=== PATIENT | female | born 1985 | race Caucasian/White ===

== ENCOUNTER 2023-05-30 19:23 | Outpatient (CLI) | payer BC, SELFPAY ==
[2023-05-30 15:20] LABS: Abs Immature Grans 0.02 10^3/uL (0.0-0.06); Absolute Basophil Count 0.03 10^3/uL (0.0-0.2); Absolute Eosinophil Count 0.19 10^3/uL (0.0-0.7); Absolute Lymphocyte Count 2.16 10^3/uL (1.2-3.4); Absolute Monocyte Count 0.44 10^3/uL (0.1-0.8); Absolute Neutrophil Count 3.67 10^3/uL (1.2-6.7); Basophils % 0.5; Eosinophils % 2.9; HGB 13.8 g/dL (11.2-15.7); Immature Grans % 0.3; Lymphocytes % 33.2; MCH 29.1 pg (27.0-33.0); MCHC 33.7 % (32.0-36.0); MCV 87 fL (80-95); MPV 9.8 fL (8.0-11.0); Monocytes % 6.8; Neutrophils % 56.3; Platelet Count 245 10^3/uL (130-400); RBC 4.74 10^6/uL (3.93-5.22); RDW 11.7 % (11.7-14.6); RDW-SD 36.7 fL; WBC 6.51 10^3/uL (4.4-10.8)
[2023-05-30 15:37] LABS: ALT 19 U/L (14-59); AST 15 U/L (15-37); Albumin 3.9 g/dL (3.4-5.0); Alkaline Phosphatase 36 U/L (46-116); Amylase 61 U/L (25-115); Anion Gap 7.6 mmol/L (3-11); BUN 11 mg/dL (7-18); Bilirubin, Total 0.5 mg/dL (0.2-1.0); CO2 28.4 mmol/L (21.0-32.0); CREATININE 0.8 mg/dL (0.55-1.02); Calcium 9.2 mg/dL (8.5-10.1); Chloride 104 mmol/L (98-107); Estimated GFR 96.66 (mL/min/1.73m2); Glucose 103 mg/dL (74-106); Lipase 30 U/L (16-77); Sodium 140 mmol/L (136-145); Total Protein 7.4 g/dL (6.4-8.2)
== END 2023-05-30 19:24 | disposition home or self-care (01) ==
LOC: LBO 19:24
PROVIDERS: Visit Provider Nurse Practitioner Family
DX: R10.9 Unspecified abdominal pain (principal)
CPT/HCPCS: 36415; 80053; 83690; 82150; 85025

== ENCOUNTER → 2023-06-24 01:19 | Outpatient (CLI) | payer BC, SELFPAY ==
[2023-06-24] MEDS: Barium Sulfate 60% W/V 355 ML BTL PO (10:37)
[2023-06-24] MEDS: Barium Sulfate 98% W/W 140 ML BTL PO (10:38)
--- NOTE | 2023-06-24 10:40 | DI.RAD_ITS ---
Exam(s) RF UPPER GI SERIES SINGLE EXAM: RF UPPER GI SERIES SINGLE CLINICAL HISTORY: upper abd pain,r10.10 TECHNIQUE: 2D and realtime digital imaging was performed. CONTRAST MATERIAL: Oral barium contrast was administered. COMPARISON: No exams were available for comparison FINDINGS: Initial plain film of the abdomen reveals normal stool and air pattern. No abnormal calcifications ar e seen. Esophagus: The esophagus is patent with no evidence for erosions, fold thickening, strictures, or ma sses. With regards to the motility, there is a normal primary stripping wave. No tertiary contraction s were noted. There is penetration upon swallowing but no aspiration. There is no hiatal hernia or g astroesophageal reflux. Stomach: The stomach shows no gastric fold thickening, erosions, or masses. Duodenal Bulb: Shows no gastric fold thickening, erosions, or masses. IMPRESSION: Normal upper GI series. RADIATION DOSE DELIVERED: ramy Morales=69.7 mGy
[2023-06-24] MEDS: Simethicone/Sod Bicarb/Cit Ac, 4 gram PACKET 1 PACKET PO (10:41)
== END ==
PROVIDERS: PCP Nurse Practitioner Family; Visit Provider Nurse Practitioner Family
DX: R10.10 Upper abdominal pain, unspecified (principal)
CPT/HCPCS: 74240; J3490

== ENCOUNTER 2023-12-20 02:03 | Outpatient (CLI) | payer BC, SELFPAY ==
--- OUTSIDE RECORDS SUMMARY | 2023-12-20 02:04 | XMS_ITS | Encounter Summary ---
Author Organization [place] [address] Care Team Providers Care Iuss Master Analyst Name Role Phone Chiara Troy MD Primary Care Provider Encounter Details Date Type Department Care Team (Late st Contact Info) Description 05/23/2022 Interpretation Only [address] [phone] Parth Marie MD [address] [place] [address] Social History Tobacco Use Types Packs/Day Years Used Date Smoking Tobacco: Never Smokeless Tobacco: Never Alcohol Use Standard Drinks/Week Comments Not Asked 0 (1 standard drink = 0.6 oz pur e alcohol) Sex and Gender Information Value Date Recorded Sex Assigned at Not on file Gender Identity Not on file Sexual Orientation Not on file documented as of this encounter Plan of Treatment Not on file documented as of this encounter Procedures Procedure Name Priority Date/Time Associated Diagnosis Comments CT ABDOMEN AND PELVIS WO CONTRAST STAT 05/23/2022 9:02 PM EST documented in this encounter Results * CT Abdomen & Pelvis wo Contrast (05/23/2022 9:02 PM EST) PT CLASS E RAD ADMITDTTM RAD PT RAD INFO [id number]^F INDLEY^ANN AGUSTIN WALT RAD EXAM DESC CTAPWO^CT ABD AND PELVIS WITHOUT CONT^RIS RAD Anatomical Region Laterality Modality Abdomen, Pelvis Computed Tomogra phy Impressions 05/23/2022 9:39 PM EST No hydronephrosis or urolithiasis. Subtle fat stranding at the mesenteric root, nonspecific. This can be seen as an early sign of pancreatitis. Thank you for letting us participate in the care of this patient. ??If you are a health care provider and have any questions regarding this report, please contact the number below. ??For patients who have questions please contact the health rn primary care that requested your imaging first. ? Electronically signed by: Ruperto Julien MD, [facility] ([phone]), at 05/23/2022 9:39 PM Narrative 05/23/2022 9:39 PM EST EXAMINATION: CT ABD AND PELVIS WITHOUT CONT CLINICAL HISTORY: periumbilical/epigastric abd pain TECHNIQUE: Helical CT of the abdomen and pelvis was performed without the use of intravenous contrast. ??Multiplanar reformatted images were generated. COMPARISON: 03/07/2018 FINDINGS: The absence of intravenous contrast limits the evaluation of solid viscera and vasculature. Right kidney/ureter: No collecting system dilation or calculi. Left kidney/ureter: No collecting system dilation or calculi. Urinary Bladder: No bladder or proximal urethral calculi. Lower chest: No evidence of pleural or parenchymal disease at the lung bases. Normal heart size. No pericardial effusion. Liver: Normal. Bile ducts: Nondilated. Gallbladder: No calcified gallstones. Normal caliber wall. Pancreas: Normal attenuation without ductal dilatation. Spleen: Normal. Adrenals: Normal. Vasculature: No aneurysm. Lymph Nodes: No enlarged lymph nodes. Bowel: Nondilated, no wall thickening. Normal appendix. Normal terminal ileum. Small bowel is normal in caliber. GE junction, stomach and duodenal C-sweep within normal limits. Peritoneum and mesentery: There is subtle fat stranding at the mesenteric root, nonspecific. Physiologic fluid in the cul-de-sac. Abdominal wall: Normal. Reproductive organs: IUD in place. No adnexal mass. Osseous structures: No suspicious lesions. Procedure Note Ruperto Julien MD - 05/23/2022 EXAMINATION: CT ABD AND PELVIS WITHOUT CONT CLINICAL HISTORY: periumbilical/epigastric abd pain TECHNIQUE: Helical CT of the abdomen and pelvis was performed without theuse of intravenous contrast. Multiplanar reformatted images were generated. COMPARISON: 03/07/2018 FINDINGS: The absence of intravenous contrast limits the evaluation of solid visceraand vasculature. Right kidney/ureter: No collecting system dilation or calculi. Left kidney/ureter: No collecting system dilation or calculi. Urinary Bladder: No bladder or proximal urethral calculi. Lower chest: No evidence of pleural or parenchymal disease at the lungbases. Normal heart size. No pericardial effusion. Liver: Normal. Bile ducts: Nondilated. Gallbladder: No calcified gallstones. Normal caliber wall. Pancreas: Normal attenuation without ductal dilatation. Spleen: Normal. Adrenals: Normal. Vasculature: No aneurysm. Lymph Nodes: No enlarged lymph nodes. Bowel: Nondilated, no wall thickening. Normal appendix. Normal terminal ileum. Small bowel is normal in caliber. GE junction, stomach and duodenal C-sweep within normal limits. Peritoneum and mesentery: There is subtle fat stranding at the mesentericroot, nonspecific. Physiologic fluid in the cul-de-sac. Abdominal wall: Normal. Reproductive organs: IUD in place. No adnexal mass. Osseous structures: No suspicious lesions. IMPRESSION No hydronephrosis or urolithiasis. Subtle fat stranding at the mesenteric root, nonspecific. This can be seenas an early sign of pancreatitis. Thank you for letting us participate in the care of this patient. If youare a health care provider and have any questions regarding this report,please contact the number below. For patients who have questions please contactthe health rn primary care that requested your imaging first. Electronically signed by: Ruperto Julien MD, [facility]([phone]), at 05/23/2022 9:39 PM Parth Marie MD IMG CT ORDERABL ES documented in this encounter Visit Diagnoses Not on filedocumented in this encounter Care Teams Iuss Master Analyst Relationship Specialty Start Date End Date Chiara Troy MD [facility] [place] [address] PCP - General General Internal Medicine 11/01/2106/10 documented as of this encounter
--- OUTSIDE RECORDS SUMMARY | 2023-12-20 02:04 | XMS_ITS | Encounter Summary ---
Author Organization [facility] [place] [address] Care Team Providers Care Brick Paver Name Role Phone Chiara Troy MD Primary Care Provider [phone] Reason for Referral * Physical Therapy (Routine) - Closed Specialty Diagnoses / Procedures Referred By Contac t Referred To Contact Physical Therapy Diagnoses Pain in left hip Chronic left-sided low back pain with left-sided sciatica Lyle Patel PA [facility] [place] [address] Physical Therapy, Aldo Blackmon [address] [place] [id number] Referral ID Status Reason Start Date Expiration Date V isits Requested Visits Authorized [id number] Closed Evaluate and Treat PCP Updated and/or Approved 12/21/2021 06/19/2022 12 12 Reason for Visit * Reason Comments Follow-up L hip injury Encounter Details Date Type Department Care Team (Late st Contact Info) Description 12/21/2021 9:40 AM EDT Office Visit Internal Medicine at [address] [id number] Lyle Patel PA [facility] [place] [address] Pain in left hip; Chronic left-sided low back pain with left-sided sciatica Social History Tobacco Use Types Packs/Day Years Used Date Smoking Tobacco: Never Smokeless Tobacco: Never Alcohol Use Standard Drinks/Week Comments Not Asked 0 (1 standard drink = 0.6 oz pur e alcohol) Sex and Gender Information Value Date Recorded Sex Assigned at Not on file Gender Identity Not on file Sexual Orientation Not on file documented as of this encounter Last Filed Vital Signs Vital Sign Reading Time Taken Comments Blood Pressure 120/68 12/21/2021 9:48 AM EDT Pulse 72 12/21/2021 9:48 AM EDT Temperature 36.7 ??C (98 ??F) 12/21/2021 9:48 AM EDT Respiratory Rate - - Oxygen Saturation - - Inhaled Oxygen Concentration - - Weight - - Height - - Body Mass Index - - documented in this encounter Progress Notes * Lyle Patel PA - 12/21/2021 9:40 AM EDT General Internal Medicine Visit Subjective: Patient Information: Daphnie Villatoro is a 36 y.o. female, a patient of Chiara Troy MD, who presents today for: Chief Complaint Patient presents with ??? Follow-up L hip injury Pt present for a [employer]' comp injury follow up. DOI 10/16/21 She was playing kickball about 8 weeks ago and stepped on first base while sprinting with left footand the base collapsed. She had some discomfort in her left hip but the hip pain worsened later that day. She tried icing it and had trouble ambulating that night. She went to [facility] ED same day to be evaluated. She reports a negative hip xray and was dx with a hip sprain. She has rested now for 8+ weeks without major improvement. Prior to this was active but has been unable to exercise at all since the injury. The pain is mostly left lateral hip and groin, as well as some left low back pain. She will have good an bad days but has consistent pain with weight bearing on left leg. The low back pain radiates circumferentially from low back to left groin. She has been taking ibuprofen prn. She works for [email or web address] in [place], but the injury occurred [employer]. Medications 12/21/21 0984 Medication Sig Taking? norethindrone (Aygestin) 5 mg Tablet Take 1 tablet by mouth daily. Take as taper twice daily [id number] once daily x3 days, then stop cholecalciferol, Vitamin D3, (Vitamin D3) 400 unit Tablet Take 400 Units by mouth daily. multivitamin with minerals (One-A-Day) Tablet Take 1 tablet by mouth daily. levonorgestreL (Kyleena) 17.5 mcg/24 hrs (5 yrs) 19.5 mg IUD 1 each by Intrauterine route Continuous (Device). Inserted: 06/07/2019 albuterol (PROVENTIL HFA;VENTOLIN HFA;PROAIR) 90 mcg/actuation HFA Aerosol Inhaler Inhale 2 puffs into the lungs every 4 hours as needed for Wheezing. Use with spacer ascorbic acid (VITAMIN C) 100 mg tablet Take 100 mg by mouth daily. Objective: Visit Vitals BP 120/68 (BP Location (NBP): Right arm, Patient Position: Sitting) Pulse 72 Temp 36.7 ??C (98 ??F) BP Readings from Last 3 Encounters: 12/21/21 120/68 03/03/21 108/76 02/10/21 123/74 Wt Readings from Last 3 Encounters: 03/03/21 79.9 kg (176 lb 1.6 oz) 02/10/21 80 kg (176 lb 6.4 oz) 06/07/19 86 kg (189 lb 9.6 oz) Physical Exam Musculoskeletal: Lumbar back: Positive left straight leg raise test. Left Hip Exam Tenderness The patient is experiencing tenderness in the anterior, lateral and posterior. Range of Motion The patient has normal left hip ROM. Muscle Strength The patient has normal left hip strength. Tests JONAH: negative Macy: negative Other Erythema: absent Sensation: normal Back Exam Tenderness The patient is experiencing no tenderness. Range of Motion The patient has normal back ROM. Muscle Strength The patient has normal back strength. Tests Straight leg raise left: positive at 60 deg Other Gait: normal Assessment and Plan: I discussed the following diagnosis/diagnoses and differential diagnoses in detail with Ms. Villatoro, including treatment options and she agrees with the plan outlined below. All chronic problems listedin H&P are stable unless otherwise noted below. 1. Pain in left hip 2. Chronic left-sided low back pain with left-sided sciatica - Workers' comp injury from 6/10/22 - Concern for lumbar origin with L1 dermatomal pain. Will refer to local PT and consider ortho if not improvement. - Continue with prn NSAIDs - Referral to Physical Therapy - XR Lumbar Spine 2 Or 3 Views (Generic); Future - Ms. Villatoro was given the necessary information on her condition and instructed to return to clinicif symptoms continue or worsen and to follow-up with Chiara Troy MD for chronic management asneeded. - An After Visit Summary was either printed and given to the patient or provided via the patient portal at the patient's request. No future appointments. documented in this encounter Plan of Treatment Scheduled Referrals Name Type Priority Associated Diagnoses Orde r Schedule Referral to Physical Therapy Outpatient Referral Routine Pain in left hip Chronic left-sided low back pain with left-sided sciatica Ordered: 12/21/2021 documented as of this encounter Results * XR Lumbar Spine 2 Or 3 Views (Generic) (12/21/2021 11:25 AM EDT) Anatomical Region Laterality Modality L-spine N/A Digital Radiogra phy Impressions 12/21/2021 1:40 PM EDT Mild progression of degenerative disc disease and facet arthropathy at the lumbosacral junction. Thank you for letting us participate in the care of this patient. ??If you are a health care provider and have any questions regarding this report, please contact the number below. ??For patients who have questions please contact the health medical care evaluation specialist that requested your imaging first. ? Narrative 12/21/2021 1:40 PM EDT EXAMINATION: XR LUMBAR SPINE 2 OR 3 VIEWS (GENERIC) CLINICAL HISTORY: low back and left hip pain x 8 weeks (as entered by ordering provider in the order requisition) TECHNIQUE: AP and lateral views of the lumbar spine. Coned lateral view the lumbosacral junction. COMPARISON: CT abdomen and pelvis 03/07/2018 FINDINGS: There are small riblets arise from T12. There are 5 nonrib-bearing lumbar type to bodies. There is no focal vertebral body height loss. No listhesis. Mild disc space narrowing at L5-S1 is slightly progressed since 2018. Mild facet arthropathy L4-5 and L5-S1 is mildly progressed since 2018. There is partial visualization of a T-shaped contraceptive device projecting over the pelvic cavity. Procedure Note Mariia Delcid MD - 12/21/2021 EXAMINATION: XR LUMBAR SPINE 2 OR 3 VIEWS (GENERIC) CLINICAL HISTORY: low back and left hip pain x 8 weeks (as entered byordering provider in the order requisition) TECHNIQUE: AP and lateral views of the lumbar spine. Coned lateral view thelumbosacral junction. COMPARISON: CT abdomen and pelvis 03/07/2018 FINDINGS: There are small riblets arise from T12. There are 5 nonrib-bearing lumbartype to bodies. There is no focal vertebral body height loss. No listhesis.Mild disc space narrowing at L5-S1 is slightly progressed since 2018. Mild facet arthropathy L4-5 and L5-S1 is mildly progressed since 2018. There is partial visualization of a T-shaped contraceptive deviceprojecting over the pelvic cavity. IMPRESSION Mild progression of degenerative disc disease and facet arthropathy atthe lumbosacral junction. Thank you for letting us participate in the care of this patient. If youare a health care provider and have any questions regarding this report,please contact the number below. For patients who have questions please contactthe health medical care evaluation specialist that requested your imaging first. Flynn Marin MD IMG DX ORDERABLES documented in this encounter Visit Diagnoses Diagnosis Pain in left hip Pain in joint, pelvic region and thigh Chronic left-sided low back pain with left-sided sciatica Pain in left hip Pain in joint, pelvic region and thigh Chronic left-sided low back pain with left-sided sciatica documented in this encounter Care Teams Brick Paver Relationship Specialty Start Date End Date Chiara Troy MD [facility] [place] [address] PCP - General General Internal Medicine 11/01/2106/10 documented as of this encounter
--- OUTSIDE RECORDS SUMMARY | 2023-12-20 02:04 | XMS_ITS | Clinical Summary ---
Author Organization [facility] Address [facility] [place] [address] Care Team Providers Care Ham Clerk Name Role Phone Nahomi Pierre APRN Primary Care Provider [phone] Allergies No known active allergies Medications Medication Sig Dispensed Refills Start Date End Date Status ascorbic acid, vitamin C, (VITAMIN C) 100 mg Tablet Take 100 mg by mouth daily. Active multivitamin with minerals (One-A-Day) Tablet Take 1 tablet by mouth daily. Active albuteroL 90 mcg/actuation HFA Aerosol InhalerIndications: Acute URI Inhale 2 puffs into the lungs every 4 hours as needed for Wheezing. Use with spacer 3 each 04/26/2022 Active vitamin with mseuagng-Fb-Bawp-FA TabletIndications:p revent neural tube defect Take 1 tablet by mouth daily. Indications: prevention of neural tube defect when Active psyllium husk (psyllium) Take 1 packet by mouth daily. 90 packet 3 07/11/2023 Active Additional Information Patient not taking.Reported on 07/29/2023 Active Problems Problem Noted Date Diagnosed Date Intrauterine device surveillance 06/07/2019 Overview (06/07/2019): Kyleena IUD, placed 06/07/2019, strings trimmed to 3 cm Lot # [id number], Exp date: 08/2020 Hypothyroidism 06/07/2019 Obesity 05/26/2009 Immunizations Name Administration Dates Next Due Influenza Quadrivalent, Preservative Free 2019 Influenza Vaccine, Whole 05/12/2009 TD Adult 05/09/2004 Tdap 06/05/2019 Family History Relation Status Comments Mother Alive Social History Tobacco Use Types Packs/Day Years Used Date Smoking Tobacco: Never Smokeless Tobacco: Never Tobacco Cessation:Counseling Given: Not Answered Alcohol Use Standard Drinks/Week Comments Yes 1 (1 standard drink = 0.6 oz pur e alcohol) one drink per week Sex and Gender Information Value Date Recorded Sex Assigned at Not on file Gender Identity Not on file Sexual Orientation Not on file Last Filed Vital Signs Vital Sign Reading Time Taken Comments Blood Pressure 116/86 07/29/2023 12:50 PM EDT Pulse 97 07/29/2023 12:20 PM EDT Temperature 36.6 ??C (97.8 ??F) 07/29/2023 10:55 AM E DT Respiratory Rate 16 07/29/2023 12:50 PM EDT Oxygen Saturation 92% 07/29/2023 12:50 PM EDT Inhaled Oxygen Concentration - - Weight 81.6 kg (180 lb) 07/29/2023 10:55 AM EDT Height 156.2 cm (5' 1.5) 07/29/2023 10:55 AM ED T Body Mass Index 33.46 07/29/2023 10:55 AM EDT Plan of Treatment Health Maintenance Due Date Last Done Comments Hepatitis C Screening 2003 Lipid Screening 2003 Hepatitis B vaccine (0-59 yrs) (1) 01/26/2004 Covid-19 Vaccine (1 - 2022- season) 2023 Influenza (Flu) vaccine (1 o f 1 - Influenza standard series) 01/08/2024 06/05/2019, 05/12/2009 HPV test 06/07/2024 06/07/2019 PAP Smear 06/07/2024 06/07/2019, 11/20/2010 Tetanus vaccine 06/05/2029 06/05/2019, 05/09/2004 Tdap adult Completed 06/05/2019 HIV screen Completed 03/03/2021 Procedures Procedure Name Priority Date/Time Associated Diagnosis Comments HIV SCREEN, 4TH GENERATION ([facility]/CGP/APD/NLH) Routine 03/03/2021 12:42 PM EDT Pre-conception counseling Abnormal uterine bleeding (AUB) HPV Routine 06/07/2019 3:00 PM EST [facility] CYTOLOGY FINAL REPORT Routine 06/07/2019 3:00 PM EST from Last 3 Months or Most Recently Relevant to Health Maintenance Results * HIV Screen, 4th Generation ([facility]/CGP/APD/NLH) (03/03/2021 12:42 PM EDT) HIV Ab/Ag Screen Negative Negative [facility] Comment: This 4th Generation HIV test screens for the presence of the HIV-1 p24 antigen as well as antibodies reactive against HIV-1 and HIV-2. A negative screen does not rule out an acute HIV infection. If acute HIV infection is suspected, testing should be repeated in 2 - 3 weeks or HIV nucleic acid testing performed. HIV Comment Low Risk of HIV Infection [facility] Blood 03/03/2021 12:4 2 PM EDT 03/03/2021 12:52 PM EDT Narrative Resulting Agency Comment Spec In Lab Fanny Murphy MD CHEMISTRY ORDERABLES [facility] [place] [id number] * HPV (06/07/2019 3:00 PM EST) HPV16 NEGATIVE NEGATIVE [facility] HPV 18 NEGATIVE NEGATIVE [facility] HPV Other HR NEGATIVE NEGATIVE [facility] HPV Interpretation See Comment [facility] Comment: NEGATIVE for high-risk HPV *. * Testing negative for high risk HPV means that the specimen is negative for the following 14 types tested: ??types 16, 18, 31, 33, 35, 39, 45, 51, 52, 56, 58, 59, 66, and 68. ??The test is not intended to detect low risk HPV types. Raji Bakari HPV test Specimen: HPV Testing - Cytology Liquid Based Prep Cervical swab (specimen) 06/07/2019 3:00 PM EST 06/07/2019 7:38 PM EST Narrative Resulting Agency Comment Spec In Lab Amy Quinn APRN PATHOLOGY/CYTOLOG Y ORDERABLES [facility] [place] [address] * College Service Officer Cytology Final Report (06/07/2019 3:00 PM EST) College Service Officer Cytology Final Report [id number] ? Location: 5L The signing pathologist has (i) examined the relevant preparation(s) for the specimen(s) and (ii) rendered or confirmed the diagnosis(es). . ? College Service Officer Final DIAGNOSIS Normal Negative for intraepithelial lesion or malignancy (NILM). For consensus guidelines for the management of cervical cancer screening test results, please see: ?? http://www.asccp.o rg . Electronically signed by: ??Abhi VALERA(ASCP)Alicia Verified: ??06/20/2019 ?Licensed Insurance Agent Performed at: ??-[facility] Dept. of Pathology, [place], [place] HPV RESULTS HPV16 (Result) ?Negative HPV18 (Result) ?Negative HPVOHR (Result) ? Negative HPV (Interpretation) ?See Below HPV (Interpretation) Text: NEGATIVE for high-risk HPV *. *Testing negative for high risk HPV means that the specimen is negative for the following 14 types tested: types 16, 18, 31, 33, 35, 39, 45, 51, 52, 56, 58, 59, 66, and 68. The test is not intended to detect low risk HPV types. Raji bakari HPV test Specimen: HPV Testing - Cytology Liquid Based Prep The Raji bakari ? HPV test was validated, performed and results reported through the [facility] ([facility]) at [facility]. ? - Hosea Tapia, PhD, [facility], Director-[facility] STATEMENT OF ADEQUACY Specimen submitted is satisfactory. Endocervical component present. CLINICAL INFORMATION HPV Option: ?Concurrent HPV and Pap CT/NG Option: ?Yes Preparation: ? Liquid based Pap Specimen Source: ? Cervical/Endocervi jose LMP: ? 17 May 2019 Hysterectomy: ?No : ?No : ?No I.U.D.: ?No Pelvic Radiation: ?No Hist Abnl Pap/Biopsy: ?No Prior [facility] Therapy: ? No Hist of HPV Vaccine: ? No ICD Diagnosis: ? Z12.4 Encounter for screening for malignant neoplasm of cervix Clinical Data, Significant Therapy and Clinical Impression ?? : ?_ . CLINICAL INFORMATION This Pap Test has been evaluated with the assistance of the [employer] HealthPrep Pap Test Imaging System. Note: The Pap test is a screening test for cervical cancer with an inherent false-negative rate dependent upon several variables. For further information please contact the [facility] Laboratory. Reference: Epi DUGGAN. [employer] Developer For [employer] Adults of Pap Smear Results. In: Harmony PERALTA, Agapito GOMEZ, ed. The Pap Smear. [place]: Zheng, 2002: 71-77. [facility] 06/07/2019 3:00 PM EST Amy Quinn APRN PATHOLOGY/CYTOLOG Y ORDERABLES [facility] [address] [place] [address] from Last 3 Months or Most Recently Relevant to Health Maintenance Care Teams Ham Clerk Relationship Specialty Start Date End Date Ignacio, Nahomi Hurley APRN [address] [place] [address] PCP - General Internal Medicine 06/30/23
--- OUTSIDE RECORDS SUMMARY | 2023-12-20 02:04 | XMS_ITS | Encounter Summary ---
Author Organization [facility] [place] [address] Care Team Providers Care Marketing And Public Relations Manager Name Role Phone Chiara Troy MD Primary Care Provider [phone] Encounter Details Date Type Department Care Team (Late st Contact Info) Description 06/24/2023 Ancillary Procedure [place] [id number] Ignacio, Nahomi Hurley APRN [address] [place] [address] Social History Tobacco Use Types Packs/Day Years [...] Procedure Name Priority Date/Time Associated Diagnosis Comments FILM LIBRARY STORAGE ONLY DX GI STUDY Routine 06/24/2023 12:00 AM EST documented in this encounter Results * Film Library- Storage Only DX GI Study (06/24/2023 12:00 AM EST) Narrative RAD - 06/28/2023 7:10 PM EST This exam is auto-finalizing. It's purpose is for storage only. Nahomi M Ignacio SUPERVISOR PHOTOSTAT IMG FILM LIBRARY O RDERABLES [facility] [place] documented in this encounter Visit Diagnoses Not on filedocumented in this encounter Care Teams Marketing And Public Relations Manager Relationship Specialty Start Date End Date Chiara Troy MD [facility] [place] [address] PCP - General General Internal Medicine 11/01/21 2 documented as of this encounter
--- OUTSIDE RECORDS SUMMARY | 2023-12-20 02:04 | XMS_ITS | Encounter Summary ---
[place] [address] Care Team Providers Care Button Sewing Machine Operator Name Role Phone Nahomi Pierre APRN Primary Care Provider [phone] Reason for Referral * Consultation (Routine) - Authorized Specialty Diagnoses / Procedures Referred By Contac t Referred To Contact [facility] Diagnoses RUQ pain RUQ pain/? MSK/ACNES/? pain mgmt options/? TPI Kayla Bautista MD [facility] [place] [address] [facility] [place] [place] [address] Referral ID Status Reason Start Date Expiration Date Visits Requested Visits Authorized [id number] Authorized Consult, Test & Treat 07/11/2023 07/10/2024 1 1 Reason for Visit * Consultation (Routine) - Authorized Specialty Diagnoses / Procedures Referred By Contac t Referred To Contact Gastroenterology Diagnoses Upper abdominal pain ABD US WAS NORMAL, UPPER GI FILMS NORMAL. PATIENT TRIALED ON PPI WITH NO RELIEF OF PAIN. Nahomi Pierre APRN [address] [place] [address] [facility] [place] [address] Referral ID Status Reason Start Date Expiration Date Visits Requested Visits Authorized [id number] Authorized Consult, Test & Treat PCP Updated and/or Approved 06/30/2023 06/29/2024 6 6 Encounter Details Date Type Department Care Team (Latest Contact Info) Description 07/11/2023 4:00 PM EST TH Visit (TeleHealth) [place] [address] [facility] [place] [address] RUQ pain (Primary Dx) Social History Tobacco Use Types Packs/Day Years Used Date Smoking Tobacco: Never Smokeless Tobacco: Never Alcohol Use Standard Drinks/Week Comments Not Asked 0 (1 standard drink = 0.6 oz pur e alcohol) Sex and Gender Information Value Date Recorded Sex Assigned at Not on file Gender Identity Not on file Sexual Orientation Not on file documented as of this encounter Progress Notes * Kayla Bautista MD - 07/11/2023 4:00 PM EST [facility] Division of Gastroenterology and Hepatology Tele-Health Outpatient Consultation Reason for Visit: Abdominal pain Referred by Nahomi Pierre History of Present Illness: Daphnie Villatoro is a 38 y.o. female with past medical history significant for hypothyroidism who is referred to GI for upper abdominal pain. Beginning in mid-May 2023, she started noticing local RUQ abdominal pain that was dull and sharp, lasting 3-4 days in total. No recent trauma/falls/injuries/heavy lifting. She went to [facility] ED. Workup has included CT A/P, CBC, CMP, lipase that were all reassuring and normal. [facility] Further testing includes UGIS which was also normal. Pain has persisted. Pain is sporadic and not associated with specific activities including activity, eating, BM. Notices it is worse in the afternoon. Quality is always different- sometimes dull, sometimes sharp. When she does feel it, and she presses on that area pain is worse. Does feel more gassy than prior. No F/chills/N/V/weight loss. BM are regular, normal caliber, no blood or mucous. Tried a BRAT diet for two weeks without relief. Has had inconsistent but occasional chest pain- feels like RUQ pain moved to upper side of her chest on right side. 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 Hypothyroid: patient reports sub-clinical, but recently had TSH checked that was normal Trials: Omeprazole 40mg once daily, with food for a few weeks Heat pads at night- not sure if helping NSAIDs- rare use for 4-5 days with some relief Tylenol- rare use for 4-5 days, with some relif Past Endoscopy: No prior Relevant Studies/Imagin05/2023 RUQUS normal No past medical history on file. PSHx Past Surgical History: Procedure Laterality Date WISDOM TOOTH EXTRACTION extra bleeding to monitor in the office for a few years, no blood transfusion Social History: reports that she has never smoked. She has never used smokeless tobacco. Lives in [place], [place] with geronimo. 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 Indications: prevention of neural tube defect when albuteroL 90 mcg/actuation HFA Aerosol Inhaler Inhale 2 puffs into the lungs every 4 hours as needed for Wheezing. Use with spacer 3 each 0 cholecalciferol, Vitamin D3, (Vitamin D3) 400 unit Tablet Take 400 Units by mouth daily. multivitamin with minerals (One-A-Day) Tablet Take 1 tablet by mouth daily. ascorbic acid, vitamin C, (VITAMIN C) 100 mg Tablet Take 100 mg by mouth daily. No current facility-administered medications for this visit. No Known Allergies Review of Systems: Constitutional: No weight loss HEENT: No visual changes, URI symptoms Cardio: No chest pain/palpitations Resp: No cough, no SOB Hem/Lymph: no new lumps or bumps on body GI: see HPI : no dysuria Skin: no new rashes Musculoskeletal: no new joint pains Neuro: no new numbness, weakness in extremities All other systems negative except as above in HPI Physical Examination: Tele-health Labs: Reviewed in EDH/Scan Docs Lab Results Component Value Date WBC 7.0 03/03/2021 HGB 14.7 03/03/2021 HCT 42.9 03/03/2021 MCV 87.9 03/03/2021 PLATELET 261 03/03/2021 Chemistry Component Value Date/Time NA 140 08/21/2014 1247 K 4.2 08/21/2014 1247 CL 100 08/21/2014 1247 CO2 29 08/21/2014 1247 BUN 12 08/21/2014 1247 CREATININE 0.83 08/21/2014 1247 Component Value Date/Time CALCIUM 9.6 08/21/2014 1247 ALKPHOS 49 08/21/2014 1247 AST 22 08/21/2014 1247 ALT 26 08/21/2014 1247 BILITOT 0.3 08/21/2014 1247 IMPRESSION: Daphnie Villatoro is a 38 y.o. female with past medical history significant for hypothyroidism who is referred to GI for upper abdominal pain. Acute RUQ pain that has persisted over 1 month, not relieved with PPI trial, BRAT diet, or analgesia. Characteristic of pain appears very atypical for intra- abdominal/intestinal pain, as it is very sporadic and changing in characteristic, not associated with eating or BM. On review of CT, there is some notable stool build up in her right colon, which we discussed and will initiate a fiber supplement and monitor her bowel habits. We also discussed the role of upper endoscopy- I have low suspicion for intra-luminal pathology but with previous NSAID use would be reasonable to exclude PUD and rule out H pylori. We spent time counseling on possible MSK etiologies, such as ACNES, given very focal nature of painand otherwise unremarkable CT/RUQUS (no gallstones, mass, abscess, inflammation). I recommend referring Daphnie to Pain Clinic to trial trigger point injections. I also discussed visceral pain, and the use of anti- spasmodics which she is open to trying. RECOMMENDATIONS: -EGD with gastric biopsies -Pain Clinic referral -psyllium daily, monitor BM -IBGard TID prn Follow up 4- 6 months 60 minutes spent in chart review, tele-health time and coordination of care with the patient today. Kayla Bautista MD [place] [address] P: [phone] F: [phone] CC Nahomi Pierre, [address] [place] [address] documented in this encounter Plan of Treatment Scheduled Orders Name Type Priority Associated Diagnoses Orde r Schedule ENDOSCOPY CASE REQUEST: EGD, UPPER GI ENDOSCOPY (WRVU 2.09) Procedures Routine RUQ pain Ordered: 07/11/2023 Scheduled Referrals Name Type Priority Associated Diagnoses Order Schedule Referral to Pain Management Outpatient Referral Routine RUQ pain Ordered: 07/11/2023 documented as of this encounter Visit Diagnoses Diagnosis RUQ pain- Primary Abdominal pain, right upper quadrant documented in this encounter Care Teams Button Sewing Machine Operator Relationship Specialty Start Date End Date Nahomi Pierre APRN [address] [place] [address] PCP - General Internal Medicine 06/30/23 documented as of this encounter
--- OUTSIDE RECORDS SUMMARY | 2023-12-20 02:04 | XMS_ITS | Encounter Summary ---
Author Organization Formerly [facility] [place] [address] Care Team Providers Care Awning Hanger Supervisor Name Role Phone IgnacioAlex donharish Hurley APRN Primary Care Provider [phone] Encounter Details Date Type Department Care Team (Late st Contact Info) Description 09/01/2023 Telephone [place] [id number] Monica Manley Social History Tobacco Use Types Packs/Day Years Used Date Smoking Tobacco: Never Smokeless Tobacco: Never Alcohol Use Standard Drinks/Week Comments Yes 1 (1 standard drink = 0.6 oz pur e alcohol) one drink per week Sex and Gender Information Value Date Recorded Sex Assigned at Not on file Gender Identity Not on file Sexual Orientation Not on file documented as of this encounter Miscellaneous Notes * Telephone Encounter - Monica Manley - 09/01/2023 3:44 PM EDT Caller: pt Call for: Reason for call: Pt looking for assistance in understanding a few components of EGD path report. Pt also looking for clarity on if Gallbladder was checked, pt was expecting line item mention of iton EGD report. Call back urgency: pt eager for information Ok to leave detailed message? Yes Preferred method of communication: prefer to speak if can, vm okay though. [phone] Best times to reach after 4pm Confirmed both 08/31 and 09/05 4pm and later is free w/ cell coverage. documented in this encounter Plan of Treatment Not on file documented as of this encounter Visit Diagnoses Not on filedocumented in this encounter Care Teams Awning Hanger Supervisor Relationship Specialty Start Date End Date Ignacio, Nahomi Hurley APRN [address] [place] [address] PCP - General Internal Medicine 06/30/23 documented as of this encounter
--- OUTSIDE RECORDS SUMMARY | 2023-12-20 02:04 | XMS_ITS | Encounter Summary ---
Author Organization [facility] [place] [address] Care Team Providers Care Senior Courtroom Clerk Name Role Phone Nahomi Pierre Mei VEGA Primary Care Provider [phone]- [phone] Reason for Visit * Auth/Cert (Routine) Specialty Diagnoses / Procedures Referred By Contac t Referred To Contact Diagnoses RUQ pain RUQ pain Procedures PRO UPPER GI ENDOSCOPY, DIAGNOSTIC PRO UPPER GI ENDOSCOPY, BIOPSY PRO UP GI ENDOSCOPY, REMV TUMOR, SNARE EGD, UPPER GI ENDOSCOPY (WRVU 2.09) Kayla Bautista MD [facility] [place] [address] [facility] Referral ID Status Reason Start Date Expiration Date Visits Re quested Visits Authorized [id number] 1 1 Encounter Details Date Type Department Care Team (Late st Contact Info) Description 07/29/2023 11:30 AM EDT - 07/29/2023 12:00 PM EDT Surgery [place] [address] Kayla Bautista MD [facility] [place] [place] [address] EGD WITH BIOPSY (WRVU 2.39) Social History Tobacco Use Types Packs/Day Years [...] Sign Reading Time Taken Comments Blood Pressure 151/93 07/29/2023 10:55 AM EDT Pulse 84 07/29/2023 10:55 AM EDT Temperature 36.6 ??C (97.8 ??F) 07/29/2023 10:55 AM E DT Respiratory Rate - - Oxygen Saturation 100% 07/29/2023 10:55 AM EDT Inhaled Oxygen Concentration - - Weight 81.6 kg (180 lb) 07/29/2023 10:55 AM EDT Height 156.2 cm (5' 1.5) 07/29/2023 10:55 AM ED T Body Mass Index 33.46 07/29/2023 10:55 AM EDT documented in this encounter Discharge Instructions * Discharge Instructions* Kera Delcid RN - 07/29/2023 12:55 PM EDT Upper GI Endoscopy: What to Expect at Home Your Recovery You will be able to go home after your doctor or nurse checks to make sure you are not having any problems. You may have to stay overnight if you had treatment during the test. You may have a sore throat fora day or two after the test. This care sheet gives you a general idea about what to expect after the test. How can you care for yourself at home? Activity Rest when you feel tired. You can do your normal activities when it feels okay to do so. Diet Follow your doctor's directions for eating. Unless your doctor has told you not to, drink plenty of fluids. This helps to replace the fluids that were lost during the prep. Do not drink alcohol. Medicines Your doctor will tell you if and when you can restart your medicines. He or she will also give you instructions about taking any new medicines. If you take blood thinners, such as warfarin (Coumadin), clopidogrel (Plavix), or aspirin, be sure to talk to your doctor. He or she will tell you if and when to start taking those medicines again. Make sure that you understand exactly what your doctor wants you to do. If polyps were removed or a biopsy was done during the test, your doctor may tell you not to take aspirin or other anti-inflammatory medicines for a few days. These include ibuprofen (Advil, Motrin) and naproxen (Aleve). If you have a sore throat the day after the procedure, use an xjdq-hyp-vvghagk spray to numb your throat. Sucking on throat lozenges and gargling with warm salt water may also help relieve your symptoms. Other instructions For your safety, do not drive or operate machinery until the medicine wears off and you can think clearly. Your doctor may tell you not to drive or operate machinery until the day after your test. Do not sign legal documents or make major decisions until the medicine wears off and you can think clearly. The anesthesia can make it hard for you to fully understand what you are agreeing to. Additional Information for Sedation Patients For patients who received sedation: You may have received medications before and/or during your procedure which effects your judgement and reaction time. Do not drive, operate machinery, drink alcoholic beverages or make important decisions for 24 hours. Be careful on stairs as you may be unsteady on your feet. You may eat a regular diet as tolerated. Do not smoke if you are alone. IV site: Slight redness or tenderness is normal, you can use a warm compress if you would like. If tenderness and/or redness increase or if foul drainage occurs, please contact your Doctor. Please call [phone] before 8pm Mon-Fri with problems, questions or concerns. If you call after 8pm or on weekends, call the Hospital at [phone] and ask to speak to the [place] Clerk nylon machine operator and the spray machine operator will contact that person for you. When should you call for help? Call [phone] anytime you think you may need emergency care. For example, call if: You passed out (lost consciousness). You pass maroon or bloody stools. You have trouble breathing. Call your doctor now or seek immediate medical care if: You have pain that does not get better after you take pain medicine. You are sick to your stomach or cannot drink fluids. You have new or worse belly pain. You have blood in your stools. You have a fever. You cannot pass stools or gas. Watch closely for changes in your health, and be sure to contact your doctor if you have any problems. Where can you learn more? [email or web address] View your After Visit Summary and more online at [email or web address] If you would like to provide feedback about your hospital experience, please call the Office of Patient and Family Relations at . If you have received this After Visit Summary in error, please immediately return it in person to the department, or notify the [facility] Privacy Office by calling toll free at between the hours of 8AM and 5PM to arrange for our retrieval of the documents at no cost to you. Content Version: 12.2 ?? [id number] [employer]. Care instructions adapted under license by [facility]. If you have questions about a medical condition or this instruction, always ask your healthcare professional. [employer] disclaims any warranty or liability for your use of this information. documented in this encounter Medications at Time of Discharge Medication Sig Dispensed Refills Start Date End Date psyllium husk (psyllium) Take 1 packet by mouth daily. 90 packet 3 07/11/2023 vitamin with czskvvoa-Wq-Vkmx-FA TabletIndications:preve nt neural tube defect Take 1 tablet by mouth daily. Indications: prevention of neural tube defect when albuteroL 90 mcg/actuation HFA Aerosol InhalerIndications:Acut e URI Inhale 2 puffs into the lungs every 4 hours as needed for Wheezing. Use with spacer 3 each 04/26/2022 multivitamin with minerals (One-A-Day) Tablet Take 1 tablet by mouth daily. ascorbic acid, vitamin C, (VITAMIN C) 100 mg Tablet Take 100 mg by mouth daily. documented as of this encounter H&P Notes * Kayla Bautista MD - 07/29/2023 1:23 PM EDT Gastroenterology and Hepatology Pre-Procedure History and Physical Exam Procedure: EGD: Indication: abdominal pain Patient Active Problem List Diagnosis Code Obesity E66.9 Intrauterine device surveillance Z30.431 Hypothyroidism E03.9 EXAM: HEENT: Airway examined, oropharynx clear Mallampati Score: I (soft palate, uvula, fauces, tonsillar pillars visible) LUNGS: Clear to auscultation HEART: Regular rate and rhythm, normal S1, S2 ABDOMEN: Normal bowel sounds, soft, non tender, non distended A/P Proceed with the planned endoscopic procedure. ASA 2 - Patient with mild systemic disease with no functional limitations Sedation Plan: moderate (conscious sedation) Risks and benefits of the procedure explained to the patient. Consent signed. documented in this encounter Plan of Treatment Not on file documented as of this encounter Procedures Procedure Name Priority Date/Time Associated Diagnosis Comments SURGICAL PATHOLOGY REPORT Routine 07/29/2023 12:21 PM EDT SPECIMEN TO PATHOLOGY Routine 07/29/2023 12:21 PM EDT Upper Gi Endoscopy, Biopsy ([id number]) 07/29/2023 12:11 PM EDT RUQ pain UPPER GI ENDOSCOPY Routine 07/29/2023 11 :51 AM EDT documented in this encounter Results * Surgical Pathology Report (07/29/2023 12:21 PM EDT) Final Diagnosis [id number] ? Location: 4T; 12; A The signing pathologist has (i) examined the relevant preparation(s) for the specimen(s) and (ii) rendered or confirmed the diagnosis(es). . ?Surgical Pathology DIAGNOSIS A - Stomach R/O H. Pylori, biopsy (Multiple): - Gastric antral type mucosa with mild ?? nonspecific ??reactive epithelial change. - Gastric body type mucosa with ?? mild parietal cell hyperplasia/alter ation compatible with PPI effects. - No h. pylori like microorganisms seen. Electronically signed by: ?Mari Leon MD Verified: ??08/08/2023 17:48 ??Pathologist Performed at: ??-[facility] Dept. of Pathology, [place] [address] High School Tutor: Peyton Morales MD, FCAP, ??CLIA Certificate: [id number] SPECIMEN(S) SUBMITTED A - Stomach R/O H. Pylori, biopsy (Multiple) CLINICAL INFORMATION Abdominal pain SPECIMEN PROCESSING A - Labeled/Fixative: Abdominal pain, formalin. Quantity/Size: Multiple, ranging from 0.1 to 0.4 cm. Tissue Description: Soft, pink-red tissues. Sections/Processi ng: Submitted in toto ??in 2 cassettes labeled A1-A2. ??sns 08/08/2023 5:48 PM EDT [facility] GI Biopsy 07/29/2023 12:2 1 PM EDT 07/29/2023 12:21 PM EDT Kayla Bautista MD PATHOLOGY/CYTOLOGY O JOSE Performing Organization Address [facility]/ZIP Co de Phone Number [facility] [place] [address] * Specimen to Pathology (07/29/2023 12:21 PM EDT) AP Specimen 07/29/2023 12:2 1 PM EDT 07/29/2023 12:21 PM EDT Narrative [facility] - 07/29/2023 12:21 PM EDT Specimen requisition ordered. ??Separate Pathology report to follow Kayla Bautista MD PATHOLOGY/CYTOLOGY O JOSE Performing Organization Address [facility] Co de Phone Number [facility] [place] [address] * UPPER GI ENDOSCOPY (07/29/2023 11:51 AM EDT) UPPER GI ENDOSCOPY [facility] Endoscopy Procedure Date: 07/29/2023 11:51 AM ? Patient Name: Daphnie Villatoro ? Date of : 1985 ? Age: 38 ? Order #: [id number] ? Instrument Name: [id number] ? Procedure: ? Upper GI endoscopy Indications: ? Abdominal pain in the right upper ? quadrant Patient Profile: ? 38F with RUQ pain Providers: ? Cristian Murphy Brian ? Santino Winston Referring MD: ?Nahomi Brooke Ignacio Medicines: ? Midazolam 3 mg IV, Fentanyl 100 ? micrograms IV, Benzocaine spray Complications: ? No immediate complications. Procedure: ? Pre-Anesthesia Assessment: ? - Prior to the procedure, a History ? and Physical was performed, and ? patient medications and allergies ? were reviewed. The patient's ? tolerance of previous anesthesia ? was also reviewed. The risks and ? benefits of the procedure and the ? sedation options and risks were ? discussed with the patient. All ? questions were answered, and ? informed consent was obtained. ? Prior Anticoagulants: The patient ? has taken no anticoagulant or ? antiplatelet agents. ASA Grade ? Assessment: II - A patient with ? mild systemic disease. After ? reviewing the risks and benefits, ? the patient was deemed in ? satisfactory condition to undergo ? the procedure. ? The procedure, indications, ? benefits, risks and alternatives ? were explained to the patient. ? Specifically discussed were ? potential complications including, ? but not limited to, bleeding, ? perforation, infection, missing a ? cancer, and adverse medication ? reactions. The Endoscope was ? introduced through the mouth, and ? advanced to the second part of ? duodenum The upper GI endoscopy was ? accomplished without difficulty. ? The patient tolerated the procedure ? well. ? Findings: ? The Z-line was regular and was found 40 cm from the ? incisors. ? The examined esophagus was normal. ? The entire examined stomach was normal. Biopsies were ? taken with a cold forceps for histology. ? The examined duodenum was normal. ? Moderate Sedation: ? Moderate (conscious) sedation was administered by the ? nurse and supervised by the endoscopist. The ? patient's oxygen saturation, heart rate, blood ? pressure and response to care were monitored. Impression: ?- Z-line regular, 40 cm from the ? incisors. ? - Normal esophagus. ? - Normal stomach. Biopsied. ? - Normal examined duodenum. Recommendation: ?-Await pathology results, MD to ? send letter ? -Trial IBGard three times a day ? with meals ? -Continue psyllium daily ? -Referral to Pain Clinic placed ? Attending Participation: ? I personally performed the entire procedure. ? Kayla Bautista MD Kayla Bautista, 07/29/2023 12:24:13 PM Number of Addenda: 0 Note Initiated On: 07/29/2023 11:51 AM PROVATION 07/29/2023 11:5 1 AM EDT Nahomi Hurley Ignacio LEAK GANG SUPERVISOR GENERAL SURGICAL O RDERABLES PROVATION documented in this encounter Visit Diagnoses Diagnosis RUQ pain Abdominal pain, right upper quadrant documented in this encounter Administered Medications Inactive Administered Medications - up to 3 most recent administrations Medication Order MAR Action Action Date Dose Rate Site benzocaine (Hurricane One) 20% spray (restricted to herminia-procedural use) PRN, Starting on Tue07/29/23 at 1211, Until Tue07/29/23 at 1533, Intra-Operative (Intra-Procedure) Given 07/29/2023 12:11 PM EDT 1 spray fentaNYL (pf) (50 mcg/mL) multi-dose injection PRN, Starting on Tue07/29/23 at 1211, Until Tue07/29/23 at 1533, Intra-Operative (Intra-Procedure), Routine Given 07/29/2023 12:14 PM EDT 50 mcg Given 07/29/2023 12:11 PM EDT 50 mcg midazolam (pf) (Versed) (1 mg/mL) multi-dose injection PRN, Starting on Tue07/29/23 at 1211, Until Tue07/29/23 at 1533, Intra-Operative (Intra-Procedure), Routine Given 07/29/2023 12:17 PM EDT 1 mg Given 07/29/2023 12:14 PM EDT 1 mg Given 07/29/2023 12:11 PM EDT 1 mg documented in this encounter Active and Recently Administered Medications Times are shown in EDT. PRN Medication Order 07/27/2023 07/28/2023 07/29/2023 benzocaine (Hurricane One) 20% spray (restricted to herminia-procedural use) (CANCELED) PRN, Starting on Tue07/29/23 at 1211, Until Tue07/29/23 at 1533, Intra-Operative (Intra-Procedure) 121 (Given - Provid er: Cristian Walters RN) fentaNYL (pf) (50 mcg/mL) multi-dose injection (CANCELED) PRN, Starting on Tue07/29/23 at 1211, Until Tue07/29/23 at 1533, Intra-Operative (Intra-Procedure), Routine 121 (Given - Provid er: Cristian Walters RN)121 (Given - Provider: Cristian Walters RN) midazolam (pf) (Versed) (1 mg/mL) multi-dose injection (CANCELED) PRN, Starting on Tue07/29/23 at 1211, Until Tue07/29/23 at 1533, Intra-Operative (Intra-Procedure), Routine 121 (Given - Provid er: Cristian Walters RN)1214 (Given - Provider: Cristian Walters RN)1217 (Given - Provider: Cristian Walters RN) documented in this encounter Care Teams Senior Courtroom Clerk Relationship Specialty Start Date End Date Ignacio, Nahomi Hurley APRN [address] [place] [address] PCP - General Internal Medicine 06/30/23 documented as of this encounter
--- OUTSIDE RECORDS SUMMARY | 2023-12-20 02:04 | XMS_ITS | Encounter Summary ---
Author Organization [facility] Address [facility] [place] [address] Care Team Providers Care Waiter/Waitress Third Class Name Role Phone Chiara Troy MD Primary Care Provider Encounter Details Date Type Department Care Team (Late st Contact Info) Description 03/03/2022 Telephone Internal Medicine at [address] [address] Milena Astudillo, RN Social History Tobacco Use Types Packs/Day Years [...] on filedocumented in this encounter Care Teams Waiter/Waitress Third Class Relationship Specialty Start Date End Date Chiara Troy MD [facility] [place] [address] PCP - General General Internal Medicine 11/01/2106/10 documented as of this encounter
--- OUTSIDE RECORDS SUMMARY | 2023-12-20 02:04 | XMS_ITS | Encounter Summary ---
Author Organization [facility] [place] [address] Care Team Providers Care Seed Specialist Name Role Phone Nahomi Pierre Mei VEGA Primary Care Provider +1- [phone] Reason for Visit * Auth/Cert (Routine) Specialty Diagnoses / Procedures Referred By Contac t Referred To Contact Diagnoses RUQ pain RUQ pain Procedures PRO UPPER GI ENDOSCOPY, DIAGNOSTIC PRO UPPER GI ENDOSCOPY, BIOPSY PRO UP GI ENDOSCOPY, REMV TUMOR, SNARE EGD, UPPER GI ENDOSCOPY (WRVU 2.09) Kayla Bautista MD [facility] [place] [address] [facility] Referral ID Status Reason Start Date Expiration Date Visits Re quested Visits Authorized [id number] 1 1 Encounter Details Date Type Department Care Team (Latest Contact Info) Description 07/29/2023 10:15 AM EDT - 07/29/2023 1:23 PM EDT Hospital Encounter [place] [address] Kayla Bautista MD [facility] [place] [address] Discharge Disposition: Home Social History Tobacco Use Types Packs/Day Years [...] the day after the procedure, use an qrzt-orc-ldziklb spray to numb your throat. Sucking on [...] occurs, please contact your Doctor. Please call [phone] before 8pm Mon-Fri with problems, questions or concerns. If you call after 8pm or on weekends, call the Hospital at [phone] and ask to speak to the Demolition Worker production sound mixer and the screen room operator will contact that person for you. When should you call for help? Call [phone] anytime you think you may need emergency [...] After Visit Summary and more online at [email or web address] If you would like to provide feedback about your hospital experience, please call the Office of Patient and Family Relations at . If you have received this After Visit Summary in error, please immediately return it in person to the department, or notify the - Privacy Office by calling toll free at between the hours of 8AM and 5PM to arrange for our retrieval of the documents at no cost to you. Content Version: 12.2 ?? [id number] [employer]. Care instructions adapted under license by [facility]. If you have questions about a medical condition or this instruction, always ask your healthcare professional. [employer] disclaims any warranty or liability for your use of this information. documented in this encounter Medications at Time of Discharge Medication Sig Dispensed Refills Start Date End Date psyllium husk (psyllium) Take 1 packet by mouth daily. 90 packet 3 07/11/2023 vitamin with cfsbpday-Cp-Elmt-FA TabletIndications:preve nt neural tube defect Take 1 [...] 12:21 PM EDT Upper Gi Endoscopy, Biopsy ([id number]) 07/29/2023 12:11 PM EDT RUQ pain UPPER GI ENDOSCOPY Routine 07/29/2023 11 :51 AM EDT documented in this encounter Results * Surgical Pathology Report (07/29/2023 12:21 PM EDT) Final Diagnosis [id number] ? Location: 4T; [facility]; A The signing pathologist has (i) examined [...] MD Verified: ??08/08/2023 17:48 ??Pathologist Performed at: ??-[facility] Dept. of Pathology, [place] [address] Form Carpenter: Peyton Morales MD, AP, ??CLIA Certificate: [id number] SPECIMEN(S) SUBMITTED A - Stomach R/O H. Pylori, biopsy (Multiple) CLINICAL INFORMATION Abdominal pain SPECIMEN PROCESSING A - Labeled/Fixative: Abdominal pain, formalin. Quantity/Size: Multiple, ranging from 0.1 to 0.4 cm. Tissue Description: Soft, pink-red tissues. Sections/Processi ng: Submitted in toto ??in 2 cassettes labeled A1-A2. ??sns 08/08/2023 5:48 PM EDT [facility] GI Biopsy 07/29/2023 12:2 1 PM EDT 07/29/2023 12:21 PM EDT Kayla Bautista MD PATHOLOGY/CYTOLOGY O JOSE Performing Organization Address [facility] Co de Phone Number [facility] [place] [address] * Specimen to Pathology (07/29/2023 12:21 PM EDT) AP Specimen 07/29/2023 12:2 1 PM EDT 07/29/2023 12:21 PM EDT Narrative [facility] - 07/29/2023 12:21 PM EDT Specimen requisition ordered. ??Separate Pathology report to follow Kayla Bautista MD PATHOLOGY/CYTOLOGY O JOSE Performing Organization Address [facility] Co de Phone Number [facility] [place] [address] * UPPER GI ENDOSCOPY (07/29/2023 11:51 AM EDT) UPPER GI ENDOSCOPY [facility] Endoscopy Procedure Date: 07/29/2023 11:51 AM ? Patient Name: Daphnie Villatoro ? Date of : 1985 ? Age: 38 ? Order #: [id number] ? Instrument Name: [id number]- [id number] ? Procedure: ? Upper GI endoscopy Indications: [...] PROVATION 07/29/2023 11:5 1 AM EDT Nahomi Benitezost CONSTRUCTION JOB TITLES GENERAL SURGICAL O RDERABLES PROVATION documented in this encounter Visit Diagnoses Not on filedocumented in this encounter Active and Recently Administered Medications Times are shown in EDT. PRN Medication Order 07/27/2023 07/28/2023 07/29/2023 benzocaine (Hurricane One) 20% spray (restricted to herminia-procedural use) (CANCELED) PRN, Starting on Tue07/29/23 at 1211, Until Tue07/29/23 at 1533, Intra-Operative (Intra-Procedure) 1211 (Given - Provid er: Cristian Walters RN) fentaNYL (pf) (50 mcg/mL) multi-dose injection (CANCELED) PRN, Starting on Tue07/29/23 at 1211, Until Tue07/29/23 at 1533, Intra-Operative (Intra-Procedure), Routine 121 (Given - Provid er: Cristian Walters RN)1214 (Given - Provider: Cristian Walters RN) midazolam (pf) (Versed) (1 mg/mL) multi-dose injection (CANCELED) PRN, Starting on Tue07/29/23 at 1211, Until Tue07/29/23 at 1533, Intra-Operative (Intra-Procedure), Routine 1210 (Given - Provid er: Cristian Walters RN)121 (Given - Provider: Cristian Walters RN)1217 (Given - Provider: Cristian Walters RN) documented in this encounter Care Teams Seed Specialist Relationship Specialty Start Date End Date Ignacio, Nahomi Hurley [place] [address] PCP - General Internal Medicine 06/30/23 documented as of this encounter
--- OUTSIDE RECORDS SUMMARY | 2023-12-20 02:04 | XMS_ITS | Encounter Summary ---
Author Organization [facility] Address [facility] [place] [address] Care Team Providers Care Brim Ironer Hand Name Role Phone Chiara Troy MD Primary Care Provider Encounter Details Date Type Department Care Team (Latest Contact Info) Description 07/02/2022 Travel Social History Tobacco Use Types Packs/Day Years [...] on filedocumented in this encounter Care Teams Brim Ironer Hand Relationship Specialty Start Date End Date Chiara Troy MD [facility] [address] [place] [address] PCP - General General Internal Medicine 11/01/2106/10 documented as of this encounter
--- OUTSIDE RECORDS SUMMARY | 2023-12-20 02:04 | XMS_ITS | Encounter Summary ---
Author Organization [facility] Include [facility] [address] Care Team Providers Care Home Staging Specialist Name Role Phone Chiara Troy MD Primary Care Provider Encounter Details Date Type Department Care Team (Late st Contact Info) Description 05/29/2023 Interpretation Only [address] [id number] Shaan Quinones MD [address] [place] [address] Social History Tobacco Use Types Packs/Day Years [...] Associated Diagnosis Comments CT ABDOMEN AND PELVIS W CONTRAST STAT 05/29/2023 7:36 PM EST documented in this encounter Results * CT Abdomen & Pelvis w Contrast (05/29/2023 7:36 PM EST) PT CLASS E RAD ADMITDTTM [id number] RAD PT RAD INFO [id number]^Quinones^R ichard RAD EXAM DESC CTAPW^CT Abdomen and Pelvis w/ Contrast^RIS RAD Anatomical Region Laterality Modality Abdomen, Pelvis Computed Tomogra phy 05/29/2023 7:36 PM EST Impressions 05/29/2023 8:27 PM EST No acute intra-abdominal process. Preliminary report signed by: Gerhard Kramer MD at 05/29/2023 8:02 PM I have personally reviewed the image(s) and the resident's interpretation and agree with the findings, Enzo Travis MD at 05/29/2023 8:27 PM Thank you for letting us participate in the care of this patient. ??If you are a health care provider and have any questions regarding this report, please contact the number below. ??For patients who have questions please contact the health direct care specialist that requested your imaging first. ? Narrative 05/29/2023 8:27 PM EST EXAMINATION: CT Abdomen and Pelvis w/ Contrast CLINICAL HISTORY: abdominal pain TECHNIQUE: Helical CT of the abdomen and pelvis following the intravenous administration of 100 mL of Omnipaque 350. Oral contrast was not administered. COMPARISON: CT abdomen and pelvis 05/23/2022 FINDINGS: Lower chest: Normal. Liver: Normal size and attenuation without lesions. Bile ducts: Nondilated. Gallbladder: No calcified gallstones. Normal caliber wall. Pancreas: Normal attenuation without ductal dilatation. Spleen: Normal. Adrenals: Normal. Kidneys: Symmetric enhancement. No collecting system dilation. Urinary Bladder: Normal. Vasculature: No abdominal aortic aneurysm. Lymph Nodes: No enlarged lymph nodes. Bowel: Nondilated, no wall thickening. Normal appendix. ?? Peritoneum and retroperitoneum: No free fluid. No pneumoperitoneum. No loculated fluid collection or mesenteric inflammation. Abdominal wall: Normal. Reproductive organs: Normal uterine contour. No adnexal mass. Osseous structures: No acute osseous abnormality. No suspicious lesions. Procedure Note Enzo Travis MD - 05/29/2023 EXAMINATION: CT Abdomen and Pelvis w/ Contrast CLINICAL HISTORY: abdominal pain TECHNIQUE: Helical CT of the abdomen and pelvis following theintravenous administration of 100 mL of Omnipaque 350. Oral contrast was notadministered. COMPARISON: CT abdomen and pelvis 05/23/2022 FINDINGS: Lower chest: Normal. Liver: Normal size and attenuation without lesions. Bile ducts: Nondilated. Gallbladder: No calcified gallstones. Normal caliber wall. Pancreas: Normal attenuation without ductal dilatation. Spleen: Normal. Adrenals: Normal. Kidneys: Symmetric enhancement. No collecting system dilation. Urinary Bladder: Normal. Vasculature: No abdominal aortic aneurysm. Lymph Nodes: No enlarged lymph nodes. Bowel: Nondilated, no wall thickening. Normal appendix. Peritoneum and retroperitoneum: No free fluid. No pneumoperitoneum. Noloculated fluid collection or mesenteric inflammation. Abdominal wall: Normal. Reproductive organs: Normal uterine contour. No adnexal mass. Osseous structures: No acute osseous abnormality. No suspicious lesions. IMPRESSION No acute intra-abdominal process. Preliminary report signed by: Gerhard Kramer MD at 05/29/2023 8:02 PM I have personally reviewed the image(s) and the resident's interpretationand agree with the findings, Enzo Travis MD at 05/29/2023 8:27 PM Thank you for letting us participate in the care of this patient. If youare a health care provider and have any questions regarding this report,please contact the number below. For patients who have questions please contactthe health direct care specialist that requested your imaging first. Shaan Quinones MD IMG CT ORDERABLES documented in this encounter Visit Diagnoses Not on filedocumented in this encounter Care Teams Home Staging Specialist Relationship Specialty Start Date End Date Chiara Troy MD [facility] [place] [address] PCP - General General Internal Medicine 11/01/2106/10 documented as of this encounter
--- OUTSIDE RECORDS SUMMARY | 2023-12-20 02:04 | XMS_ITS | Encounter Summary ---
Author Organization [facility] Address [facility] [place] [address] Care Team Providers Care Senior Corporate Strategy Manager Name Role Phone Chiara Troy MD Primary Care Provider Encounter Details Date Type Department Care Team (Late st Contact Info) Description 12/11/2021 Telephone Internal Medicine at [address] [phone] Chiara Troy MD [facility] [place] [address] Social History Tobacco Use Types Packs/Day Years [...] encounter Miscellaneous Notes * Telephone Encounter - Kimberlee Lemos - 12/11/2021 9:07 AM EDT Please call patient to discuss Emergency Room Follow Up Reason for the Emergency Room visit: Hip injury at work Name of the facility where patient was seen: [facility] Symptomatic now: yes Other information:Patient is still experiencing hip pain. She states she was told to watch for improvement over 6-8 weeks however has not had any improvement and was advised to have a follow up with her PCP. Please call to schedule. Caller and Relationship (if other than patient): patient Best time to call back: any Okay to leave a message: y Okay to send my- message: y Nurse contacted via: Message: y Call: n Pager: n documented in this encounter Plan of Treatment Not on file documented as of this encounter Visit Diagnoses Not on filedocumented in this encounter Care Teams Senior Corporate Strategy Manager Relationship Specialty Start Date End Date Chiara Troy MD [facility] [place] [address] PCP - General General Internal Medicine 11/01/2106/10 documented as of this encounter
--- OUTSIDE RECORDS SUMMARY | 2023-12-20 02:04 | XMS_ITS | Encounter Summary ---
Author Organization [facility] [place] [address] Care Team Providers Care Waiter/Waitress Tavern Name Role Phone IgnacioAlex donharish Hurley APRN Primary Care Provider [phone] Encounter Details Date Type Department Care Team (Late st Contact Info) Description 07/13/2023 Telephone [place] [phone] Hugo Dockery Social History Tobacco Use Types Packs/Day Years [...] encounter Miscellaneous Notes * Telephone Encounter - Hugo Dockery - 07/13/2023 4:15 PM EST Daphnie Villatoro [id number] Diagnosis/Indication: RUQ pain Please review patient chart to confirm if previous Endoscopy procedure was performed within system. If yes, take note of Anesthesia type used. If previous procedure found, and with MAC/propofol Anesthesia support was used, schedule this procedure with Anesthesia and skip the Anesthesia portion of questions. If not performed within system, not performed at all, or performed with IVCS, ask Anesthesia questions. SCHEDULING QUESTIONS (ask all patient these questions) Have you ever had a/an Upper Endoscopy before? No If yes, did you have any problems with the procedure (such as waking up during the procedure, pain or difficulties afterwards, etc.)? No What type of sedation was used: None (ASK ONLY FOR COLONOSCOPY PROCEDURES) Are you aware, or have you ever been told that you had a poor prep or failed prep with a previous colonoscopy? No If yes, assign the Extended MiraLAX Prep (ASK ONLY FOR COLONOSCOPY PROCEDURES) Do you have an ongoing history of constipation? (E.g., hard stools, >2 days without a bowel movement, straining or difficulty passing stool) No If yes, assign the Extended MiraLAX Prep Do you take any blood thinners or have you been diagnosed with a bleeding disorder that increases your risk of bleeding with procedures? No Do you have a Pacemaker or Defibrillator device? If yes, send pool message to Cardiology with patient information and date or procedure. No Do you have diabetes? If yes, call PCP/managing provider to discuss use of prep and any questions or concerns related to. No If yes, assign the Extended MiraLAX Prep Do you take any iron supplements or vitamins that contain iron? No Do you have a preference regarding the gender of your provider? Yes Apte ANESTHESIA QUESTIONS (YES to any question, please book with Anesthesia support) Have you ever been diagnosed with Pulmonary Hypertension and/or Congential Heart Disease? No Have you been diagnosed with A-Fib (atrial fibrillation) that is NOT being well controled with medications? No Have you ever had an allergic or adverse reaction to Fentanyl or Versed? No Have you had a problem with sedation or anesthesia? (Waking up during procedure, extreme confusion after, etc.) No Do you have a diagnosis of Obstructive Sleep Apnea that requires the use of a c- pap machine? No Do you use an oxygen tank at home? No Do you use a rescue inhaler more than twice per day? (COPD, severe asthma) No Do you experience breathing problems when you lay flat for a period of time? No Do you regularly take prescription opioid pain medications on a daily basis? (Includes oxycodone, Percocet, Suboxone, methadone, etc.) No If yes, assign the Extended MiraLAX Prep SCHEDULING CONFIRMATIONS: Please note any and all parts of your conversation with the patient here. We offer all new patients an opportunity to have an appointment with one of our associate care providers to learn more about your upcoming procedure, ask questions and get answers. These appointmentsare offered via telehealth. Would you be interested in scheduling this appointment? (Only ask if NEW referral patient; skip this question if [facility] provider ordered the procedure.) No Is there any other information or concerns you would like to us to share with your care team in relation to your upcoming scheduled procedure? No You must have a responsible democrat who will drive you to your procedure, stay on campus for the entire duration of your procedure, and drive you home from your procedure. Who will likely be your emergency detail driver for the procedure? *Please Verify the height and weight, and adjust if height and/or weight have changed* Estimated body mass index is 32.53 kg/m?? as calculated from the following: Height as of 07/02/22: 156.2 cm (5' 1.5). Weight as of 07/02/22: 79.4 kg (175 lb). *Patient must be scheduled for Anesthesia support if BMI is 40 or above* Height: 5'1.5'' Weight: 183 BMI: 34 Age:38 y.o. documented in this encounter Plan of Treatment Not on file documented as of this encounter Visit Diagnoses Not on filedocumented in this encounter Care Teams Waiter/Waitress Tavern Relationship Specialty Start Date End Date Ignacio, Nahomi Hurley APRN [address] [place] [address] PCP - General Internal Medicine 06/30/23 documented as of this encounter
--- OUTSIDE RECORDS SUMMARY | 2023-12-20 02:04 | XMS_ITS | Encounter Summary ---
[place] [address] Care Team Providers Care Paint Coating Machine Operator Name Role Phone Nahomi Pierre APRN Primary Care Provider [phone]- [phone] Reason for Referral * Consultation (Routine) - Authorized Specialty Diagnoses / Procedures Referred By Contdariusz t Referred To Contact Gastroenterology Diagnoses Upper abdominal pain ABD US WAS NORMAL, UPPER GI FILMS NORMAL. PATIENT TRIALED ON PPI WITH NO RELIEF OF PAIN. Nahomi Pierre APRN [address] [place] [address] [facility] [place] [address] Referral ID Status Reason Start Date Expiration Date Visits Requested Visits Authorized [id number] Authorized Consult, Test & Treat PCP Updated and/or Approved 06/30/2023 06/29/2024 6 6 Encounter Details Date Type Department Care Team (Late st Contact Info) Description 06/30/2023 Transcribe Orders eDH Incoming Referrals [phone] Nahomi Pierre APRN [address] [place], [place] [address] Upper abdominal pain Social History Tobacco Use Types Packs/Day Years Used Date Smoking Tobacco: Never Smokeless Tobacco: Never Alcohol Use Standard Drinks/Week Comments Not Asked 0 (1 standard drink = 0.6 oz pur e alcohol) Sex and Gender Information Value Date Recorded Sex Assigned at Not on file Gender Identity Not on file Sexual Orientation Not on file documented as of this encounter Plan of Treatment Scheduled Referrals Name Type Priority Associated Diagnoses Order Schedule Referral to Gastroenterology Outpatient Referral Routine Upper abdominal pain Ordered: 06/30/2023 documented as of this encounter Visit Diagnoses Diagnosis Upper abdominal pain Abdominal pain, other specified site documented in this encounter Care Teams Paint Coating Machine Operator Relationship Specialty Start Date End Date Ignacio, Nahomi Hurley APRN [address] [place] [address] PCP - General Internal Medicine 06/30/23 documented as of this encounter
--- OUTSIDE RECORDS SUMMARY | 2023-12-20 02:04 | XMS_ITS | Encounter Summary ---
Author [facility] [place] [address] Care Team Providers Care Cylinder Machine Operator Pulp Drier Name Role Phone Chiara Troy MD Primary Care Provider Encounter Details Date Type Department Care Team (Late st Contact Info) Description 05/30/2023 Ancillary Procedure [place]iology [place] [phone] Ignacio, Nahomi Hurley APRN [address] [place] [address] Social History Tobacco Use Types Packs/Day Years [...] Associated Diagnosis Comments FILM LIBRARY STORAGE ONLY ULTRASOUND STUDY Routine 05/30/2023 12:00 AM EST documented in this encounter Results * Film Library- Storage Only Ultrasound Study (05/30/2023 12:00 AM EST) Narrative RAD - 06/28/2023 7:10 PM EST This exam is auto-finalizing. It's purpose is for storage only. Nahomi M Ignacio REPAIR ARMATURE WINDER IMG FILM LIBRARY O RDERABLES [facility] [place] documented in this encounter Visit Diagnoses Not on filedocumented in this encounter Care Teams Cylinder Machine Operator Pulp Drier Relationship Specialty Start Date End Date Chiara Troy MD [facility] [place] [address] PCP - General General Internal Medicine 11/01/2106/10 documented as of this encounter
--- OUTSIDE RECORDS SUMMARY | 2023-12-20 02:04 | XMS_ITS | Encounter Summary ---
Author Organization [facility] Address [facility] [place] [address] Care Team Providers Care Medical Receptionist Medical Assistant Name Role Phone Chiara Troy MD Primary Care Provider Reason for Visit * Reason Comments Follow-up IUD removal Encounter Details Date Type Department Care Team (Late st Contact Info) Description 07/02/2022 3:40 PM EST Office Visit Obstetrics [place] [address] Fawn Garcia MD [facility] [place] [address] Encounter for IUD removal; Hx of goiter Social History Tobacco Use Types Packs/Day Years [...] Sign Reading Time Taken Comments Blood Pressure 129/104 07/02/2022 3:30 PM EST Pulse 72 07/02/2022 3:30 PM EST Temperature 36.3 ??C (97.4 ??F) 07/02/2022 3:30 PM ES T Respiratory Rate - - Oxygen Saturation 100% 07/02/2022 3:30 PM EST Inhaled Oxygen Concentration - - Weight 79.4 kg (175 lb) 07/02/2022 3:30 PM EST Height 156.2 cm (5' 1.5) 07/02/2022 3:30 PM EST Body Mass Index 32.53 07/02/2022 3:30 PM EST documented in this encounter Progress Notes * Fawn Garcia MD - 07/02/2022 3:40 PM EST REVISING CLERK VISIT S: Daphnie Villatoro is 37 y.o. G0 female with AUB and IUD in place presents for IUD removal due to desire for conception. Last clinic note w/ Dr. Murphy on 02/2021 reviewed. Extra bleeding with wisdom tooth extraction. No family hx heavy bleeding, VonWillebrand. Her aunt did have hyst for AUB-L. Normal CBC and TSH. Normal pap test in the past. TVUS with IUD in place. She was offered Aygestin taper PRN for AUB. She was considering conceiving and [facility] referral was placed. She also completed and genetic testings with overall normal results. Currently, her bleeding is monthly ranges from 5 to 10 days. She denies lightheadedness associated with AUB. She never tried Aygestin taper. She has not completed [facility] referral. She has started vitamins for 2 months now. She has worked on her nutrition and exercise and work on regulating her thyroid. Hx of goiter s/p resection. She lena not required synthroid. TSH normal 2020. O: BP (!) 129/104 (BP Location (NBP): Right arm) Pulse 72 Temp 36.3 ??C (97.4 ??F) Ht 156.2 cm (5' 1.5) Wt 79.4 kg (175 lb) SpO2 100% BMI 32.53 kg/m?? General Appearance: appears comfortable NAD Chest: CTAB, no wrc CV: RRR no mrg Abd: soft, nondistended nontender Pelvic (examined chaparoned by Dr. Campos and PROMOTIONS SPECIALIST) : normal external vulva, vagina, and cervix. Ext: no edema or calf tenderness IUD removal Procedure Note: Operative consent reviewed and signed. The IUD strings were visualized at the os. The strings were gently grasped with a ring forcep and the Mirena removed intact without complication. It was inspected and noted to be intact. EBL- minimal. A&P: Daphnie Villatoro is 37 y.o. with history as stated above presents for IUD removal for desire to conceive. Procedure performed with no complication. -Return in 6 months if unsuccessful at conceiving for infertility work up. -Counseled patient on the following: vitamins, healthy lifestyle, menstrual tracker, ovulation kits. -Counseled patient on concerning s/s of VB, abdominal pain in early to seek evaluation. Patient discussed with Dr. Campos. Fawn Garcia MD, PGY2 Obstetrics and Gynecology 07/02/2022 * Aure Davis LNA - 07/02/2022 3:40 PM EST Examination chaperoned by ULISES Jack. * Danita Campos MD - 07/02/2022 3:40 PM EST I have seen the patient in person and reviewed the resident's above history and I agree with the details as written. The assessment and plan were formulated in discussion with me and I agree with them as documented. I was present for and supervised the entire procedure of IUD removal. Danita Campos MD documented in this encounter Miscellaneous Notes * Addendum Note - Danita Campos MD - 07/02/2022 3:40 PM ESTAddended by: DANITA CAMPOS on: 07/05/2022 10:03 AM Modules accepted: Level of Service documented in this encounter Plan of Treatment Not on file documented as of this encounter Visit Diagnoses Diagnosis Encounter for IUD removal Encounter for removal of intrauterine contraceptive device Hx of goiter Personal history of other endocrine, metabolic, and immunity disorders documented in this encounter Care Teams Medical Receptionist Medical Assistant Relationship Specialty Start Date End Date Chiara Troy MD [facility] [place] [address] PCP - General General Internal Medicine 11/01/2106/10 documented as of this encounter
--- OUTSIDE RECORDS SUMMARY | 2023-12-20 02:04 | XMS_ITS | Encounter Summary ---
Author Organization [facility] Address [facility] [place] [address] Care Team Providers Care Telegraphic Typewriter Operator Chief Name Role Phone Chiara Troy MD Primary Care Provider [phone] Reason for Visit * Reason Onset Date Comments Medication Refill 04/26/2022 Encounter Details Date Type Department Care Team (Late st Contact Info) Description 04/26/2022 Refill Internal Medicine at [address] [facility] [place] [address] Acute URI Social History Tobacco Use Types Packs/Day Years [...] encounter Miscellaneous Notes * Telephone Encounter - Lee Ann Covarrubias - 05/05/2022 3:31 PM EST Sent a [facility] msg to help schedule over due annual with new pcp Dr Troy. * Telephone Encounter - Jillian Rockwell - 04/26/2022 9:46 AM EST States she uses this rarely and Chiara Troy MD is aware of her taking this. documented in this encounter Plan of Treatment Not on file documented as of this encounter Visit Diagnoses Diagnosis Acute URI Acute upper respiratory infections of unspecified site documented in this encounter Care Teams Telegraphic Typewriter Operator Chief Relationship Specialty Start Date End Date Chiara Troy MD [facility] [place] [address] PCP - General General Internal Medicine 11/01/2106/10 documented as of this encounter
--- OUTSIDE RECORDS SUMMARY | 2023-12-20 02:04 | XMS_ITS | Encounter Summary ---
Author Organization [facility] Address [facility] [place] [address] Care Team Providers Care Hood Maker Name Role Phone Chiara Troy MD Primary Care Provider Encounter Details Date Type Department Care Team (Latest Contact Info) Description 12/21/2021 11:13 AM EDT - 12/21/2021 11:59 PM EDT Hospital Encounter XRay at [address] [place] [address] Flynn Marin MD [facility] INTERNAL [place] [address] Pain in left hip; Chronic left-sided low back pain with left-sided sciatica Discharge Disposition: Home Social History Tobacco Use Types Packs/Day Years Used Date Smoking Tobacco: Never Smokeless Tobacco: Never Alcohol Use Standard Drinks/Week Comments Not Asked 0 (1 standard drink = 0.6 oz pur e alcohol) Sex and Gender Information Value Date Recorded Sex Assigned at Not on file Gender Identity Not on file Sexual Orientation Not on file documented as of this encounter Medications at Time of Discharge Medication Sig Dispensed Refills Start Date End Date multivitamin with minerals (One-A-Day) Tablet Take 1 tablet by mouth daily. ascorbic acid, vitamin C, (VITAMIN C) 100 mg Tablet Take 100 mg by mouth daily. norethindrone (Aygestin) 5 mg Tablet Take 1 tablet by mouth daily. Take as taper twice daily x3days then once daily x3 days, then stop 90 tablet 3 03/03/2021 07/02/2022 cholecalciferol, Vitamin D3, (Vitamin D3) 400 unit Tablet Take 400 Units by mouth daily. 07/11/2023 levonorgestreL (Kyleena) 17.5 mcg/24 hrs (5 yrs) 19.5 mg IUD 1 each by Intrauterine route Continuous (Device). Inserted: 06/07/2019 07/02/2022 albuterol (PROVENTIL HFA;VENTOLIN HFA;PROAIR) 90 mcg/actuation HFA Aerosol InhalerIndications:Ac mary kay URI Inhale 2 puffs into the lungs every 4 hours as needed for Wheezing. Use with spacer 3 Inhaler 0 07/30/2015 04/26/2022 documented as of this encounter Plan of Treatment Not on file documented as of this encounter Procedures Procedure Name Priority Date/Time Associated Diagnosis Comments XR LUMBAR SPINE 2 OR 3 VIEWS Routine 12/21/2021 11:25 AM EDT Pain in left hip Chronic left-sided low back pain with left-sided sciatica documented in this encounter Results * XR Lumbar Spine [...] who have questions please contact the health assisted living care manager that requested your imaging first. ? Electronically signed by: Mariia Delcid MD, [facility] ([phone]), at 12/21/2021 1:40 PM Narrative 12/21/2021 1:40 PM EDT EXAMINATION: XR [...] patients who have questions please contactthe health assisted living care manager that requested your imaging first. Electronically signed by: Mariia Delcid MD, [facility]([phone]), at 12/21/2021 1:40 PM Flynn Marin MD IMG DX ORDERABLES documented in this encounter Visit Diagnoses Diagnosis Pain in left hip Pain in joint, pelvic region and thigh Chronic left-sided low back pain with left-sided sciatica documented in this encounter Care Teams Hood Maker Relationship Specialty Start Date End Date Chiara Troy MD [facility] [place] [address] PCP - General General Internal Medicine 11/01/2106/10 documented as of this encounter
--- OUTSIDE RECORDS SUMMARY | 2023-12-20 02:05 | XMS_ITS | Encounter Summary ---
[facility] Organization [facility] [place] [address] Care Team Providers Care Two Way Radio Technician Name Role Phone Stacy Adams MD Primary Care Provider [phone] Reason for Visit * Reason Onset Date Comments Other 11/06/2014 med problem Encounter Details Date Type Department Care Team (Late st Contact Info) Description 11/06/2014 Telephone Internal Medicine at [address] [address] Ruby Robin Other (med problem ) Social History Tobacco Use Types Packs/Day Years Used Date Smoking Tobacco: Never Smokeless Tobacco: Never Alcohol Use Standard Drinks/Week Comments Not Asked 0 (1 standard drink = 0.6 oz pur e alcohol) Sex and Gender Information Value Date Recorded Sex Assigned at Not on file Gender Identity Not on file Sexual Orientation Not on file documented as of this encounter Miscellaneous Notes * Addendum Note - Stacy Grossman RN - 12/02/2014 8:43 AM EDTAddended by: STACY GROSSMAN on: 12/02/2014 08:43 AM Modules accepted: Orders * Addendum Note - Stacy Grossman RN - 12/02/2014 8:31 AM EDTAddended by: STACY GROSSMAN on: 12/02/2014 08:31 AM Modules accepted: Orders, Medications * Telephone Encounter - Stacy Grossman RN - 12/02/2014 8:27 AM EDT TC from [facility] at [facility]. Patient states the BC is wrong and should be Ortho Tricyclen Lo, which she has been receiving in the past. Forwarded to Alva Valdovinos for clarification. * Telephone Encounter - Ruby Robin - 11/06/2014 3:33 PM EDT Pt asking for her control to be written for ortho tri cyclen lo for 90 days supply can we please re write a new script and pls send to [facility] in [facility] thank you. documented in this encounter Plan of Treatment Not on file documented as of this encounter Visit Diagnoses Not on filedocumented in this encounter Care Teams Two Way Radio Technician Relationship Specialty Start Date End Date Stacy Adams MD [facility] [address] [place] [address] PCP - General 03/31/10 11/01/16 documented as of this encounter
--- OUTSIDE RECORDS SUMMARY | 2023-12-20 02:05 | XMS_ITS | Encounter Summary ---
Author Organization [facility] [place] [address] Care Team Providers Care Irrigation Service Technician Name Role Phone Stacy Adams MD Primary Care Provider [phone] Reason for Visit * Reason Onset Date Comments Medication Problem 05/21/2015 Encounter Details Date Type Department Care Team (Late st Contact Info) Description 05/21/2015 Telephone Internal Medicine at [address] [address] Stacy Grossman RN Medication Problem Social History Tobacco Use Types Packs/Day Years [...] encounter Miscellaneous Notes * Telephone Encounter - Stacy Grossman RN - 05/21/2015 3:29 PM EST Patient calling, stating she thinks her insurance will only cover ortho tricyclen lo brand. Pharmacist states her insurance covers both but patient wants brand. New prescription sent for brand. documented in this encounter Plan of Treatment Not on file documented as of this encounter Visit Diagnoses Not on filedocumented in this encounter Care Teams Irrigation Service Technician Relationship Specialty Start Date End Date Stacy Adams MD [facility] [place] [address] PCP - General 03/31/10 11/01/16 documented as of this encounter
--- OUTSIDE RECORDS SUMMARY | 2023-12-20 02:05 | XMS_ITS | Encounter Summary ---
Author Organization [facility] [place] [address] Care Team Providers Care Steamship Agent Name Role Phone Alfa Harry MD Primary Care Provider [phone] Reason for Referral * Consultation (Routine) - Closed Specialty Diagnoses / Procedures Referred By Contac t Referred To Contact Obstetrics and Gynecology Diagnoses Pre-conception counseling Abnormal uterine bleeding (AUB) Fanny Murphy MD [facility] [place] [address] [employer] [address] [place] [address] Referral ID Status Reason Start Date Expiration Date V isits Requested Visits Authorized [id number] Closed Consult, Test & Treat 03/03/2021 03/03/2022 1 1 * Consultation (Routine) - Closed Specialty Diagnoses / Procedures Referred By Contact Referred To Contact Reproductive Endocrinology Diagnoses Pre-conception counseling Fanny Murphy MD [facility] [place] [address] Yanet Sanford MD [address] [place] [address] [address] [place] [address] Referral ID Status Reason Start Date Expiration Date V isits Requested Visits Authorized [id number] Closed Consult, Test & Treat 03/03/2021 08/30/2021 1 1 Reason for Visit * Reason Comments Follow-up Encounter Details Date Type Department Care Team (Late st Contact Info) Description 03/03/2021 11:30 AM EDT Office Visit Obstetrics [place] [address] Fanny Murphy MD [facility] [place] [address] Pre-conception counseling; Abnormal uterine bleeding (AUB) Social History Tobacco Use Types Packs/Day Years [...] Sign Reading Time Taken Comments Blood Pressure 108/76 03/03/2021 11:18 AM EDT Pulse - - Temperature - - Respiratory Rate - - Oxygen Saturation - - Inhaled Oxygen Concentration - - Weight 79.9 kg (176 lb 1.6 oz) 03/03/2021 11:18 AM EDT Height - - Body Mass Index 32.73 02/10/2021 1:48 PM EDT documented in this encounter Progress Notes * Enrique Roberson MD - 03/03/2021 11:30 AM EDT Previsit charting: Abnormal bleeding; IUD: Kyleena: Worsening bleeding. Now periods last longer and more cramping. On OCPs without much relief. Now with really heavy periods in October, November, December. Then January very heavy. * Fanny Murphy MD - 03/03/2021 11:30 AM EDT Department of Obstetrics and Gynecology Fanny Murphy MD SOFTWARE LEAD Follow-up Visit Reason for Visit: Daphnie is a 36 y.o. G0 premenopausal female who presents with the following complaints/concerns: AUB HPI: Saw this patient at the request of Dr. Roberson after patient was scheduled into [facility] clinic forgyn ultrasound follow-up. Limited visit. Period has been twice as heavy with IUD compared to without it. For was on EUSEBIA in the past and thenoff for a few years. On EUSEBIA, it was fine. Extra bleeding with wisdom tooth extraction. No family hx heavy bleeding, VonWillebrand. Her aunt did have hyst for AUB-L. Normal CBC and TSH. Normal pap test in the past. Review of Systems: per HPI Patient Active Problem List Diagnosis Date Noted ??? Intrauterine device surveillance 06/07/2019 ??? Hypothyroidism 06/07/2019 ??? Obesity 05/26/2009 No past medical history on file. No past surgical history on file. No family history on file. Social History Occupational History ??? Not on file Tobacco Use ??? Smoking status: Never Smoker ??? Smokeless tobacco: Never Used Vaping Use ??? Vaping Use: Never used Substance and Sexual Activity ??? Alcohol use: Not on file ??? Drug use: Not on file ??? Sexual activity: Yes Partners: Male control/protection: I.U.D. OB History 0 Para 0 Term 0 0 AB 0 Living 0 SAB 0 IAB 0 Ectopic 0 Multiple 0 Live Births 0 Current Outpatient Medications Medication Sig Dispense Refill ??? cholecalciferol, Vitamin D3, (Vitamin D3) 400 unit Tablet Take 400 Units by mouth daily. ??? multivitamin with minerals (One-A-Day) Tablet Take 1 tablet by mouth daily. ??? levonorgestreL (Kyleena) 17.5 mcg/24 hrs (5 yrs) 19.5 mg IUD 1 each by Intrauterine route Continuous (Device). Inserted: 06/07/2019 ??? albuterol (PROVENTIL HFA;VENTOLIN HFA;PROAIR) 90 mcg/actuation HFA Aerosol Inhaler Inhale 2 puffs into the lungs every 4 hours as needed for Wheezing. Use with spacer 3 Inhaler 0 ??? ascorbic acid (VITAMIN C) 100 mg tablet Take 100 mg by mouth daily. No current facility-administered medications for this visit. No Known Allergies Physical Exam Last Set of Vitals: BP 108/76 Wt 79.9 kg (176 lb 1.6 oz) BMI 32.73 kg/m?? Weight: 79.9 kg (176 lb 1.6 oz) Body mass index is 32.73 kg/m??. Physical Exam Deferred TVUS 03/03/2021 UTERUS: ------- Uterus: Visualized Position: Anteverted Size (cm) L: 7.5 W: 3.4 H: 3.4 ENDOMETRIUM: Endometrium: Normal Thickness(mm): 3.55 ?? Comment: 3D rendering with interpretation was performed for IUD placement. IUD seen in normal position within the endometrial cavity ?? ------- CERVIX: ------- Small amount of fluid seen within the cervical canal ?? CUL-DE-SAC: No fluid is visualized. ?? RIGHT OVARY: Status: Visualized Size (cm) L: 4.2 W: 3.2 H: 2.4 Vol (ml): 16.9 Morphology: Normal appearance Type: Simple cyst Size (cm) L: 3.3 W: 2.6 H: 1.8 Vol (ml): 8.1 ?? LEFT OVARY: Status: Visualized Size (cm) L: 2.9 W: 1.7 H: 1.1 Vol (ml): 2.8 Morphology: Normal appearance Comment: Ovary was not seen transvaginally, therefore transabdominal ultrasound was performed. ?? IMPRESSION ?? 1. Anteverted uterus. No fibroids seen. 2. The central endometrial echo complex appears normal and measures 3.6 mm. 3. An IUD is present in normal position in the endometrial cavity. 4. 3.3 cm simple right ovarian cyst, otherwise both ovaries are normal. Assessment/Plan: Daphnie Villatoro is a 36 y.o. female G0 with AUB. IUD in appropriate location on US. Not working well for her bleeding. Reviewed her lifelong hx heavy menses, extra bleeding with WTE. AUB - wants to keep IUD for now. Discussed other options including depo provera, nexplanon, EUSEBIA, paragard, aygestin taper prn. - she prefers aygestin taper for heavy cycles, understands this is not a press tender long goods solution - VWF testing ordered - CBC WNL No partner currently but interested in thinking about trying to conceive. - [facility] referral placed - Genetic testing referral placed - labs ordered Will consider other AUB management pending [facility] discussion. FU with Alaina Solis in a few months. Fanny Murphy MD documented in this encounter Plan of Treatment Scheduled Referrals Name Type Priority Associated Diagnoses Order Schedule Referral to Infertility Outpatient Referral Routine Pre-conception counseling Ordered: 03/03/2021 Referral to Maternal Medicine Outpatient Referral Routine Pre-conception counseling Abnormal uterine bleeding (AUB) Ordered: 03/03/2021 documented as of this encounter Procedures Procedure Name Priority Date/Time Associated Diagnosis Comments TYPE AND SCREEN VALIDITY Routine 03/03/2021 12:42 PM EDT HEMOGRAM Routine 03/03/2021 12:42 PM EDT Pre-conception counseling Abnormal uterine bleeding (AUB) HC ANTIBODY DETECTION,CAPTURE-R Routine 03/03/2021 12:42 PM EDT Pre-conception counseling Abnormal uterine bleeding (AUB) DIFFERENTIAL, AUTOMATED Routine 03/03/20 12:42 PM EDT Pre-conception counseling Abnormal uterine bleeding (AUB) SYPHILIS ANTIBODY SCREEN WITH REFLEX Routine 03/03/2021 12:42 PM EDT Pre-conception counseling Abnormal uterine bleeding (AUB) ABO/RH TYPING Routine 03/03/2021 12:42 PM EDT Pre-conception counseling Abnormal uterine bleeding (AUB) RUBELLA ANTIBODY, IGG Routine 03/03/2021 12:42 PM EDT Pre-conception counseling Abnormal uterine bleeding (AUB) HIV SCREEN, 4TH GENERATION ([facility]/CGP/APD/NLH) Routine 03/03/2021 12:42 PM EDT Pre-conception counseling Abnormal uterine bleeding (AUB) HEPATITIS B SURFACE ANTIGEN Routine 03/03/2021 12:42 PM EDT Pre-conception counseling Abnormal uterine bleeding (AUB) HC VWF ACTIVITY Routine 03/03/2021 12:42 PM EDT Pre-conception counseling Abnormal uterine bleeding (AUB) HC PARTIAL THROMBOPLASTIN TIME Routine 03/03/2021 12:42 PM EDT Pre-conception counseling Abnormal uterine bleeding (AUB) HC VENIPUNCTURE Routine 03/03/2021 12:42 PM EDT Pre-conception counseling Abnormal uterine bleeding (AUB) ANTIBODY SCREEN Routine 03/03/2021 12:42 PM EDT Pre-conception counseling Abnormal uterine bleeding (AUB) HC VARICELLA ZOSTER ANTIBODY Routine 03/03/2021 12:42 PM EDT Pre-conception counseling Abnormal uterine bleeding (AUB) documented in this encounter Results * Type and Screen Validity (03/03/2021 12:42 PM EDT) T&S only valid at [facility] LABORATORY Comment:This Type and Screen result is only valid at the [facility] Hospital Blood 03/03/2021 12:4 2 PM EDT 03/03/2021 12:46 PM EDT Narrative Resulting Agency Comment Spec In Lab Fanny Murphy MD BLOOD BANK LAB ORDER EMELIA [facility] [place] [address] * Antibody screen (03/03/2021 12:42 PM EDT) Ab Screen Interp Negative [facility] Expires at [id number] on: 03/06/2021 [facility] Blood 03/03/2021 12:4 2 PM EDT 03/03/2021 12:46 PM EDT Narrative Resulting Agency Comment Spec In Lab Fanny Murphy MD BLOOD BANK LAB ORDER EMELIA [facility] [place] [address] * ABO/Rh Typing (03/03/2021 12:42 PM EDT) ABORH Type O Pos [facility] Blood 03/03/2021 12:4 2 PM EDT 03/03/2021 12:46 PM EDT Narrative Resulting Agency Comment Spec In Lab Fanny Murphy MD BLOOD BANK LAB ORDER EMELIA [facility] [place] [address] * HIV Screen, 4th Generation ([facility]/CGP/APD/NLH) (03/03/2021 12:42 PM EDT) HIV Ab/Ag Screen Negative Negative [facility] Comment: This 4th Generation HIV test [...] HIV Comment Low Risk of HIV Infection [facility] Blood 03/03/2021 12:4 2 PM EDT 03/03/2021 12:52 PM EDT Narrative Resulting Agency Comment Spec In Lab Fanny Murphy MD CHEMISTRY ORDERABLES Performing Organization Address City/[facility]/ZIP Co de Phone Number [facility] [place] [address] * Differential, Automated (03/03/2021 12:42 PM EDT) Neutrophil % 60.1 % [facility] Neutrophil Absolute 4.21 1.70 - 6.10 x10(3)/[facility] LABORATORY Lymph % 29.9 % [facility] Lymphocytes Abs 2.1 0.9 - 3.2 x10(3)/[facility] LABORATORY Monocyte % 7.1 % [facility] Monocyte Abs 0.5 0.3 - 0.9 x10(3)/[facility] LABORATORY Eos % 2.0 % [facility] Eosinophils Abs 0.1 0.0 - 0.4 x10(3)/[facility] LABORATORY Basophil % 0.6 % [facility] Baso Absolute 0.0 0.0 - 0.1 x10(3)/[facility] LABORATORY Immature Gran % 0.30 % [facility] Comment: Immature granulocytes(IG's)percentage and absolute count will include metamyelocytes, myelocytes, and promyelocytes. Blood smears from CBCs yielding IG's will be scanned manually for concordance. If this scan disagrees with the automated IG or if promyelocytes are noted, a manual differential will be performed. Immature Gran Absolute 0.02 0.00 - 0.04 x10(3)/[facility] LABORATORY Blood 03/03/2021 12:4 2 PM EDT 03/03/2021 12:52 PM EDT Narrative Resulting Agency Comment Spec In Lab Fanny Murphy MD HEMATOLOGY ORDERABLE S Performing Organization Address City/[facility]/ZIP Co de Phone Number [facility] [place] [address] * Syphilis Screening Antibody with reflex RPR (03/03/2021 12:42 PM EDT) Syphilis IgG/IgM Negative Negative [facility] Blood 03/03/2021 12:4 2 PM EDT 03/03/2021 12:52 PM EDT Narrative Resulting Agency Comment Spec In Lab Fanny Murphy MD CHEMISTRY ORDERABLES [facility] [place] [address] * (ABNORMAL) Hemogram (03/03/2021 12:42 PM EDT) Pathologist [facility] White Blood Cell 7.0 4.0 - 9.5 x10(3)/mc L [facility] Red Blood Cell 4.88 4.00 - 5.21 x10(6)/mc L [facility] Hemoglobin 14.7 11.7 - 15.5 g/dL [facility] Hematocrit 42.9 35.7 - 45.8 % [facility] Mean Cell Volume 87.9 82.6 - 94.4 fL [facility] Mean Cell Hemoglobin 30.1 27.1 - 32.0 pg [facility] Mean Cell Hemoglobin Concentration 34.3 31.7 - 35.0 g/dL [facility] Platelet 261 145 - 357 x10(3)/mc L [facility] RDW Standard Deviation 37.0 37.0 - 46.0 [facility] LABORATORY RDW coefficient of variation 11.4(L) 11.5 - 14.1 % [facility] Mean Platelet Volume 10.3 7.6 - 12.9 fL [facility] NRBC% auto 0.0 % [facility] NRBC Absolute 0.000 0.000 - 0.000 x10(3)/mc L [facility] Blood 03/03/2021 12:4 2 PM EDT 03/03/2021 12:52 PM EDT Narrative Resulting Agency Comment Spec In Lab Fanny Murphy MD HEMATOLOGY ORDERABLE S Performing Organization Address [facility] Co de Phone Number [facility] [place] [address] * Rubella Antibody, IgG (03/03/2021 12:42 PM EDT) Rubella Antibody IgG Positive Positive [facility] Comment: Please note: ??A positive result for this assay indicates that antibody levels are >or= 10.0 IU/mL and is considered to be an indicator of positive immune status. Blood 03/03/2021 12:4 2 PM EDT 03/03/2021 12:52 PM EDT Narrative Resulting Agency Comment Spec In Lab Fanny Murphy MD CHEMISTRY ORDERABLES Performing Organization Address [facility] Co de Phone Number [facility] [place] [address] * Hepatitis B Surface Antigen (03/03/2021 12:42 PM EDT) Hepatitis B Surface Antigen Negative Negative [facility] Blood 03/03/2021 12:4 2 PM EDT 03/03/2021 12:52 PM EDT Narrative Resulting Agency Comment Spec In Lab Fanny Murphy MD CHEMISTRY ORDERABLES Performing Organization Address [facility] Co de Phone Number [facility] [place] [address] * Prothrombin Time (03/03/2021 12:42 PM EDT) Prothrombin Time 12.0 9.4 - 12.5 sec [facility] International Normalization Ratio 1.1 [facility] Comment: An INR <2.0 indicates adequate procoagulant activity for hemostasis in most patients without underlying bleeding disorders, though the INR may not adequately reflect hemostatic capacity in patients with liver disease and synthetic impairment. The recommended target INR range for therapeutic anticoagulation is 2.0 ? 3.0 for most applications, though lower and higher ranges may be appropriate depending on clinical circumstances. Blood 03/03/2021 12:4 2 PM EDT 03/03/2021 12:52 PM EDT Narrative Resulting Agency Comment Spec In Lab Fanny Murphy MD HEMATOLOGY ORDERABLE S Performing Organization Address [facility] Co de Phone Number [facility] [place] [address] * APTT (03/03/2021 12:42 PM EDT) Pathologist [facility] Partial Thromboplastin Time 32 25 - 37 sec [facility] Comment: The PTT is NOT appropriate for heparin monitoring. Use the Anti-Xa level for heparin monitoring (HEP UFH) or LMWH monitoring (HEP LMW). A PTT less than 37 seconds generally indicates adequate hemostasis. Blood 03/03/2021 12:4 2 PM EDT 03/03/2021 12:52 PM EDT Narrative Resulting Agency Comment Spec In Lab Fanny Murphy MD HEMATOLOGY ORDERABLE S Performing Organization Address [facility] Co de Phone Number [facility] [place] [address] * Von Willebrand Factor Activity (03/03/2021 12:42 PM EDT) [facility] Von Willebrand Factor Assay 53 % activity [facility] vWF Act Interp ABO blood group has a significant influence on vWF:Act levels in normal individuals. Type O has a range of 40 ? 126%. [facility] Blood 03/03/2021 12:4 2 PM EDT 03/03/2021 12:52 PM EDT Narrative Resulting Agency Comment Spec In Lab Fanny Murphy MD HEMATOLOGY ORDERABLE S Performing Organization Address [facility] Co de Phone Number [facility] [place] [address] * Varicella zoster Antibody, IgG (03/03/2021 12:42 PM EDT) Varicella Zoster Antibody IgG Neg [facility] Blood 03/03/2021 12:4 2 PM EDT 03/04/2021 7:32 AM EDT Narrative Resulting Agency Comment Spec In Lab Fanny Murphy MD IMMUNOLOGY ORDERABLE S [facility] [place] [address] documented in this encounter Visit Diagnoses Diagnosis Pre-conception counseling Other procreative management counseling and advice Abnormal uterine bleeding (AUB) documented in this encounter Care Teams Steamship Agent Relationship Specialty Start Date End Date Alfa Harry MD [facility] [place] [address] PCP - General General Internal Medicine 05/31/19 6/2 09/27 documented as of this encounter
--- OUTSIDE RECORDS SUMMARY | 2023-12-20 02:05 | XMS_ITS | Encounter Summary ---
Author Organization [facility] [place] [address] Care Team Providers Care Air And Hydronic Balancing Technician Name Role Phone Stacy Adams MD Primary Care Provider [phone] Reason for Visit * Reason Comments Eczema ? Encounter Details Date Type Department Care Team (Late st Contact Info) Description 07/09/2013 1:45 PM EST Office Visit Internal Medicine at [address] [address] Rosalie Pierce MD [facility] [place] [address] Purpura (Primary Dx) Discharge Disposition: Home Social History Tobacco Use [...] Sign Reading Time Taken Comments Blood Pressure 127/65 07/09/2013 1:58 PM EST Pulse 83 07/09/2013 1:58 PM EST Temperature 37.1 ??C (98.7 ??F) 07/09/2013 1:58 PM ES T Respiratory Rate - - Oxygen Saturation 100% 07/09/2013 1:58 PM EST Inhaled Oxygen Concentration - - Weight 88 kg (194 lb) 07/09/2013 1:58 PM EST Height 156.2 cm (5' 1.5) 07/09/2013 1:58 PM EST Body Mass Index 36.06 07/09/2013 1:58 PM EST documented in this encounter Patient Instructions * Patient Instructions* Elvin Jovita ULISES Hurley - 07/09/2013 1:57 PM EST I would like you to sign up for myD-H, which will give you secure online access to your electronic medical record at [facility] and the ability to communicate with your health care team whenand where it???s most convenient for you. With myD-H you will be able to: - look at parts of your medical record including test results and office notes - send and receive messages to/from me and your other providers - renew prescriptions - schedule appointments. To sign up, go to [email or web address] and click I have an activation code and follow the instructions. Here is your activation code: [email or web address] Expires: 08/23/2013 1:57 PM Remember, myD-H is NOT for urgent needs! Always dial 911 for medical emergencies. documented in this encounter Progress Notes * Flynn Marin MD - 07/09/2013 3:04 PM EST Called into pt room by Dr Pierce to look at a rash. Decision was made to pursue a biopsy of a asset protection representative lesion. After verbal consent, a time-out was conducted just before the start of the procedure to verify thecorrect patient and procedure, procedure location, and all relevant critical information. Alcohol used for antiseptic, 1% lidocaine with epinephrine used for anesthesia. Biopsy of asset protection representative lesion on the lateral R thigh removed with punch technique. Hemostasis with single stitch with 5.0 prolene. Bacitracin dressing placed. Pt tolerated the procedure well without immediate complications. Will have suture removed in 7 days. Discussed monitor for signs of infection. Specimen sent to lab. * Rosalie Pierce MD - 07/09/2013 2:10 PM EST ESTABLISHED PATIENT ACUTE VISIT Chief Complaint Patient presents with ??? Eczema ? Pt is a 28 y.o. female who presents for acute visit with new skin rash. Developed worsening red patches on legs over the last 10 days which are now increasing in number and spreading up onto buttock and back. Initially thought it might be eczema. Has had eczema before but has always had tiny patches of pink scaling skin in the winter on her arms. Has been trying selena and oatmeal baths and using vaseline, aveeno and hydrocortisone cream without improvement. Lesions are itchy, mack at night, but not terribly so, does describe them as uncomfortable on multiple occasions during visit - not painful. No new medications, no new detergents, lotions or soaps. Was taking vit C, stopped that but saw no change. + distant mild asthma, no seasonal or pet allergies. No fmh eczema. Otherwise feels well - energy level and appetite good. No joint pains or muscle aches. Bowels moving well. No fmh auto-immune disease. Social history Family lives in [place]. Has been in [facility] and recently returned and is going to school at [employer]. touring with a band. ROS: Constitutional - no fevers, chills, weight loss or gain, fatigue HEENT - No difficulty swallowing, hearing, No nasal congestion or postnasal drip Respiratory - No new SOB, LI, wheeze, cough, sputum production Cardiovascular - No new CP, palpitations, angina, edema, claudication Gastrointestinal - No new abdominal pain, nausea, GERD, constipation, diarrhea, blood in stool - no new difficulty urinating, incontinence or dysuria. Musculoskeletal - No new weakness, pain at rest or with movement Skin -above. All other systems negative Current Outpatient Prescriptions on File Prior to Visit Medication Sig Dispense Refill ??? norgestimate-ethinyl estradiol (TRINESSA, 28,) 0.18/0.215/0.25 mg-35 mcg (28) tablet Take 1 tablet by mouth daily. 90 tablet 3 Patient Active Problem List Diagnosis Code ??? Obesity 278.00 Physical Exam: Filed Vitals: 07/09/13 1358 BP: 127/65 Pulse: 83 Temp: 37.1 ??C (98.7 ??F) TempSrc: Oral Height: 156.2 cm (5' 1.5) Weight: 87.998 kg (194 lb) SpO2: 100% General - No acute distress. Appears well. ENT - Mouth moist without lesions. Eyes- EOMI. Not jaundiced. Noninjected Neck - No lymphadenopathy. No thyromegaly Lungs - Clear to auscultation. Heart - RRR, S1,S2, no audible murmur, gallop or rub. Abdomen/GI - Soft, nontender, normal active bowel sounds, neg hsm or masses. Extremities - No edema. Pulses intact. Skin - + non blanching purpuric lesions scattered in multiple patches across B legs extending up tohips and lower back. 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 Assessment and Plan: Rapidly spreading purpuric rash in otherwise healthy and systemically asymptomatic young woman. As it is purpuric, bleeding disorder or form of vasculitis/autoimmune process bothneed to be considered. However absence of associated symptoms is reassuring and goes against these diagnosis. Blood work will be done today as below and Dr. Flynn Marin was kind enough to come intoour visit today to biopsy one of the lesions. Based on our assessment of the lesions biopsy is needed for diagnosis given its atypical nature. Purpura - CBC (with Diff); Future - High Sensitivity CRP; Future - Sedimentation rate; Future - Comprehensive metabolic panel (non-fasting); Future - Specimen to Pathology (NON-OR) documented in this encounter Plan of Treatment Not on file documented as of this encounter Procedures Procedure Name Priority Date/Time Associated Diagnosis Comments DIFFERENTIAL, AUTOMATED Routine 07/09/2013 3:22 PM EST SEDIMENTATION RATE Routine 07/09/2013 3: 22 PM EST Purpura CBC (WITH DIFF) Routine 07/09/2013 3:22 PM EST [place] CRP, CARDIAC RISK (HS CRP) Routine 07/09/2013 3:22 PM EST [place] COMPREHENSIVE METABOLIC PANEL Routine 07/09/2013 3:22 PM EST [place] SPECIMEN TO PATHOLOGY (NON-OR) Routine 07/09/2013 2:49 PM EST [place] SURGICAL PATHOLOGY REPORT Routine 07/09/2013 2:29 PM EST documented in this encounter Results * Differential, Automated (07/09/2013 3:22 PM EST) Neutrophil % 60.1 34.0 - 71.0 % CERNER MILLENNIUM Neutrophil Absolute 4.90 1.50 - 6.30 x10(3)/mcL CERNER MILLENNIUM Lymph % 29.6 19.0 - 53.0 % CERNER MILLENNIUM Lymphocytes Abs 2.4 1.0 - 3.6 x10(3)/mcL CERNER MILLENNIUM Monocyte % 7.4 4.0 - 13.0 % CERNER MILLENNIUM Monocyte Abs 0.6 0.2 - 1.0 x10(3)/mcL CERNER MILLENNIUM Eos % 2.6 0.0 - 7.0 % CERNER MILLENNIUM Eosinophils Abs 0.2 0.0 - 0.5 x10(3)/mcL CERNER MILLENNIUM Basophil % 0.1 0.0 - 2.0 % CERNER MILLENNIUM Baso Absolute 0.0 0.0 - 0.2 x10(3)/mcL CERNER MILLENNIUM Immature Gran % 0.20 0.00 - 0.66 % CERNER MILLENNIUM Comment: Immature granulocytes(IG's)percentage and absolute count will include metamyelocytes, myelocytes, and promyelocytes. Blood smears from CBCs yielding IG's will be scanned manually for concordance. If this scan disagrees with the automated IG or if promyelocytes are noted, a manual differential will be performed. Immature Gran Absolute 0.02 0.00 - 0.05 x10(3)/mcL CERNER MILLENNIUM Blood specimen (specimen) 07/09/2013 3:22 PM EST 07/09/2013 6:04 PM EST Rosalie Pierce MD HEMATOLOGY ORDERABLE S [facility] * Comprehensive metabolic panel (non-fasting) (07/09/2013 3:22 PM EST) Glucose 86 60 - 199 mg/dL CERNER MILLENNIUM Comment:Diabetes: >=200 mg/d L plus symptoms Blood Urea Nitrogen 12 8 - 18 mg/dL CERNER MILLENNIUM Creatinine 0.72 0.70 - 1.20 mg/dL CERNER MILLENNIUM Comment: Please note that the pediatric reference intervals supplied above were not validated at [facility]. Results from pediatric patients should be interpreted in conjunction to the patient's age, height and muscle mass. Sodium 139 135 - 145 mmol/L CERNER MILLENNIUM Potassium 4.2 3.5 - 5.0 mmol/L CERNER MILLENNIUM Comment: Please note: ??Patients with WBC >100,000 may have falsely elevated Potassium levels. ??For accurate Potassium quantification in these patients send serum separator tube (gold top) for subsequent determinations. ??Contact the Clinical Chemistry Laboratory if there are any questions. Chloride 101 98 - 107 mmol/L CERNER MILLENNIUM Carbon Dioxide 28 22 - 31 mmol/L CERNER MILLENNIUM Anion Gap 10 5 - 15 mmol/L CERNER MILLENNIUM Calcium 9.7 8.5 - 10.5 mg/dL CERNER MILLENNIUM Protein, Total 7.6 6.4 - 8.3 gm/dL CERNER MILLENNIUM Albumin 4.6 3.2 - 5.2 gm/dL CERNER MILLENNIUM Aspartate Aminotransferase 18 0 - 30 unit/L CERNER MILLENNIUM Alanine Aminotransferase 18 0 - 30 unit/L CERNER MILLENNIUM Alkaline Phosphatase 45 40 - 104 unit/L CERNER MILLENNIUM Bilirubin, Total 0.3 0.2 - 1.3 mg/dL CERNER MILLENNIUM Bilirubin, Direct 0.1 0.0 - 0.3 mg/dL CERNER MILLENNIUM Est Glomerular Filtration Rate >60 >=60 CERNER MILLENNIUM Comment: This estimated GFR (eGFR) value was calculated using the MDRD equation which has been validated on patients between the ages of 18 and 70. The MDRD should not be used to assess kidney function in patients < 18 years of age or in patients with extremes of body mass, or in patients with acute kidney failure. This value should be multiplied by 1.2 for patients. For further information please copy and paste the following links into your internet browser. http://www.nkdep.nih.gov/lab-evaluation.shtml http://www.kidney.org/professionals/ Blood specimen (specimen) 07/09/2013 3:22 PM EST 07/09/2013 6:05 PM EST Narrative Resulting Agency Comment Spec In Lab Rosalie Pierce MD CHEMISTRY ORDERABLES Performing Organization Address [facility] Co de Phone Number [facility] [place] * Sedimentation rate (07/09/2013 3:22 PM EST) Sedimentation Rate Automated 8 0 - 20 mm/hr [facility] Blood specimen (specimen) 07/09/2013 3:22 PM EST 07/09/2013 6:04 PM EST Narrative Resulting Agency Comment Spec In Lab Rosalie Pierce MD HEMATOLOGY ORDERABLE S Performing Organization Address [facility] Co de Phone Number [facility] * High Sensitivity CRP (07/09/2013 3:22 PM EST) C-Reactive Protein High Sensitivity 2.3 mg/L [facility] Comment: Interpretations: 1) For accurate cardiac risk assessment, the average of 2 values >2 weeks apart should be obtained (ref 1&2). A value >10 mg/L indicates an inflammatory condition, concentrations >10 mg/L should not be used for cardiac risk assessment. ?<1.0 mg/L: low risk ?1.0 - 3.0 mg/L: moderate risk ?>3.0 mg/L: high risk groups for future cardiovascular events 2) The general reference range of apparently healthy individuals using this test is <5.0 mg/L (derived from the test package insert) References: 1. Vladimir MALAVE et. al. ??AHA/CDC Scientific Statement: Markers of Inflammation and Cardiovascular Disease. ??Circulation 2003; 107:499-511 2. Ridker PM. ??Clinical applications of C-reactive protein for cardiovascular disease detection and prevention. ??Circulation 2003; 107:363-369 Blood specimen (specimen) 07/09/2013 3:22 PM EST 07/09/2013 6:05 PM EST Narrative Resulting Agency Comment Spec In Lab Rosalie Pierce MD CHEMISTRY ORDERABLES Performing Organization Address City/[facility] Co de Phone Number [facility] * CBC (with Diff) (07/09/2013 3:22 PM EST) White Blood Cell 8.2 4.0 - 10.0 x10(3)/mcL CERNER MILLENNIUM Red Blood Cell 4.88 3.93 - 5.22 x10(6)/mcL CERNER MILLENNIUM Hemoglobin 14.4 11.2 - 15.7 gm/dL CERNER MILLENNIUM Hematocrit 41.6 34.0 - 45.0 % CERNER MILLENNIUM Mean Cell Volume 85.2 79.0 - 94.0 fL CERNER MILLENNIUM Mean Cell Hemoglobin 29.5 26.6 - 32.2 pg CERNER MILLENNIUM Mean Cell Hemoglobin Concentration 34.6 32.0 - 36.5 gm/dL CERNER MILLENNIUM Platelet 216 145 - 370 x10(3)/mcL CERNER MILLENNIUM RDW Standard Deviation 37.8 35.0 - 46.0 fL CERNER MILLENNIUM RDW coefficient of variation 12.3 10.9 - 14.4 % CERNER MILLENNIUM Mean Platelet Volume 10.9 9.0 - 12.0 fL CERNER MILLENNIUM Blood specimen (specimen) 07/09/2013 3:22 PM EST 07/09/2013 6:04 PM EST Narrative Resulting Agency Comment Spec In Lab Rosalie Pierce MD HEMATOLOGY ORDERABLE S Performing Organization Address [facility] Co de Phone Number [facility] * Specimen to Pathology (NON-OR) (07/09/2013 2:49 PM EST) AP Specimen 07/09/2013 2:49 PM EST 07/09/2013 2:49 PM EST Narrative CERNER MILLENNIUM - 07/09/2013 2:49 PM EST Specimen requisition ordered. ??Separate Pathology report to follow Rosalie Pierce MD PATHOLOGY/CYTOLOGY O RDERABLES Performing Organization Address City/[facility]/ZIP Co de Phone Number [facility] * Surgical Pathology Report (07/09/2013 2:29 PM EST) Final Diagnosis ? [facility] ? Provider: ?? ROSALIE PIERCE ? Pt. Name: ?? DAPHNIE VILLATORO ? Acc #: ?[id number] ? Pt. ? Col Date: ?? 07/09/2013 ?/Sex: ?1985,(28 years),Female ? Rec Date: ?? 07/09/2013 ?LOC: ?[facility] ? SURGICAL PATHOLOGY ? ---Pathologic Diagnosis--- ? Skin, right hip, punch biopsy: ?Purpuric dermatitis (see Comment). ? CR-0 ? 07/10/13 ? [facility] ? 07/10/13 Verified by: ? Kelly Kapoor MD ? Dermatopathologist ? (Electronic Signature) ? The attending pathologist whose signature appears on this report has ? reviewed all diagnostic slides and has edited the gross and/or ? microscopic portion of the report in rendering the final pathologic ? diagnosis. ? ---Comment--- ? There is superficial perivascular lymphocytic inflammation with exocytosis, ? and abundant extravasated red blood cells in the dermis. 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 ??A purpuric drug eruption could ? also be in the differential diagnosis. ? PAS fungal stain is negative. ? ---Gross Description--- ? A - Labeled/Fixative: Patient demographics, formalin. ? Quantity/Size: Single, 0.4 x 0.4 x 0.4 cm. ? Tissue Description: Punch of pink-greenfield skin. ? Sections/Processing: Bisected. (T1) ??ejr ? ---Clinical Information--- ? Specimen Submitted: ? A - R hip, biopsy ? Clinical History: ? Patchy purpuric rash with central areas of lichenification ? Clinical Diagnosis: ? Purpuric dermatitis 07/10/2013 5:15 PM EST [facility] SPECIMEN FROM SKIN / Unknown 07/09/2013 2:29 PM EST 07/09/2013 2:29 PM EST Rosalie Pierce MD PATHOLOGY/CYTOLOGY O RDERABLES Performing Organization Address [facility]/State/[facility] Co de Phone Number [facility] [place] [address] documented in this encounter Visit Diagnoses Diagnosis Purpura- Primary Other nonthrombocytopenic purpuras documented in this encounter Care Teams Air And Hydronic Balancing Technician Relationship Specialty Start Date End Date Stacy Adams MD [facility] [address] [place] [address] PCP - General 03/31/10 11/01/16 documented as of this encounter
--- OUTSIDE RECORDS SUMMARY | 2023-12-20 02:05 | XMS_ITS | Encounter Summary ---
Author Organization [facility] Address [facility] [place] [address] Care Team Providers Care Ladle Filler Name Role Phone Alfa Harry MD Primary Care Provider [phone] Encounter Details Date Type Department Care Team (Late st Contact Info) Description 06/10/2021 Telephone Internal Medicine at [address] [address] Stacy Ingram RN Social History Tobacco Use Types Packs/Day [...] Miscellaneous Notes * Telephone Encounter - Stacy Ingram RN - 06/10/2021 3:51 PM ESTSummary: ANTOINE Eller Daphnie has a sore throat, Reddened sore soft palate, and one side of her throat has a white plaque. She has had strep before and even a tonsil stone. She has tested Neg for Covid twice and feels that this is Strep. 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 No fever, slight gama swelling. Referred to the [facility] as she needs to be seen today. documented in this encounter Plan of Treatment Not on file documented as of this encounter Visit Diagnoses Not on filedocumented in this encounter Care Teams Ladle Filler Relationship Specialty Start Date End Date Alfa Harry MD [facility] [place] [address] PCP - General General Internal Medicine 05/31/19 6/2 09/27 documented as of this encounter
--- OUTSIDE RECORDS SUMMARY | 2023-12-20 02:05 | XMS_ITS | Encounter Summary ---
Author Organization [facility] [place] [address] Care Team Providers Care Switch Technician Name Role Phone Stacy Adams MD Primary Care Provider [phone] Encounter Details Date Type Department Care Team (Late st Contact Info) Description 08/21/2014 Orders Only Internal Medicine at [address] [address] Kenyatta Aguayo Social History Tobacco Use Types Packs/Day Years [...] on filedocumented in this encounter Care Teams Switch Technician Relationship Specialty Start Date End Date Stacy Adams MD [facility] [place] [address] PCP - General 03/31/10 11/01/16 documented as of this encounter
--- OUTSIDE RECORDS SUMMARY | 2023-12-20 02:05 | XMS_ITS | Encounter Summary ---
Author Organization [facility] [place] [address] Care Team Providers Care Power Hammer Operator Name Role Phone Stacy Paula MD Primary Care Provider [phone] Reason for Visit * Reason Comments Pharyngitis for about week Fever over weekend Abdominal Pain over weekend Diarrhea very watery, change in color Encounter Details Date Type Department Care Team (Late st Contact Info) Description 08/21/2014 10:45 AM EDT Office Visit Internal Medicine at [address] [address] Ashanti Valdovinos PA [facility] [place] [address] Abdominal pain, unspecified abdominal location; Acute pharyngitis, unspecified pharyngitis type; Acute URI; Family planning advice Discharge Disposition: Home Social History Tobacco Use [...] Sign Reading Time Taken Comments Blood Pressure 119/69 08/21/2014 11:07 AM EDT Pulse 75 08/21/2014 11:07 AM EDT Temperature 36.9 ??C (98.4 ??F) 08/21/2014 11:07 AM E DT Respiratory Rate - - Oxygen Saturation 100% 08/21/2014 11:07 AM EDT Inhaled Oxygen Concentration - - Weight 85.7 kg (189 lb) 08/21/2014 11:07 AM EDT Height 154.9 cm (5' 1) 08/21/2014 11:07 AM EDT Body Mass Index 35.71 08/21/2014 11:07 AM EDT documented in this encounter Progress Notes * Ashanti Valdovinos PA - 08/21/2014 11:06 AM EDT PATIENT: Daphnie Villatoro : 1985 PCP: STACY PAULA MD CHIEF COMPLAINT: Chief Complaint Patient presents with ??? Pharyngitis for about week ??? Fever over weekend ??? Abdominal Pain over weekend ??? Diarrhea very watery, change in color HISTORY OF PRESENT ILLNESS: Daphnie Villatoro is a 29 y.o. female who presents to the office today for an acute visit. She has been sick for about a week now Started with ST and had slight fever (nothing above 100.8 which was Tuesday night) 3 days in to illness, felt very tired No cough or runny nose Left ear pain Adena restless Over the weekend. Tuesday PM up with abdominal pain - felt nauseated, but did not throw up. Adena like her belly was firm and didn't want to touch it. Adena like she didn't want to eat or drink anything. Had the runs starting on Tuesday night x 2, Tuesday x 2, Yesterday had 2 loose stools that were darker No urinary sxs Sat: chicken salad Tuesday: toast and water Tuesday: 3/4 of grilled cheese, tea, water, 1/2 vitamin water Yesterday: toast, fruit, banana, soup at night She did take pepto-bismol She took Robitussin +nanny for sick kids and family members sick recently Feels much better today other than ST and left ear ache BM was a little more normal. Feels fine after eating Swiss Muffin. Has a hard time breathing at night and has been wheezing some - she used to have an inhaler. Used to use it during allergy season. No recent travel. traveled to [place] and returned 2.5 weeks ago. LMP: 2 weeks ago. She does not think that she is . OCP in the past (not for 4.5 yrs) On Ortho-tricyclen in the past Not interested in an IUD, ring or patch. Has thought about the depo shot Will be getting a divorce - she states that this is an amicable parting - they want different things in life. He does not want kids. She would like to go back on some sort of control. REVIEW OF SYSTEMS: Review of Systems As per HPI Patient Active Problem List Diagnosis ??? Obesity Social History Narrative None on file No Known Allergies Current Outpatient Prescriptions Medication Sig Dispense Refill ??? ascorbic acid (VITAMIN C) 100 mg tablet Take 100 mg by mouth daily. No current facility-administered medications for this visit. PHYSICAL EXAM: BP 119/69 Pulse 75 Temp(Src) 36.9 ??C (98.4 ??F) (Oral) Ht 154.9 cm (5' 1) Wt 85.73 kg (189 lb) BMI 35.73 kg/m2 SpO2 100% Physical Exam Constitutional: She is oriented to person, place, and time. She appears well- developed and well-nourished. No distress. HENT: Head: Normocephalic and atraumatic. Right Ear: External ear normal. Left Ear: External ear normal. Mouth/Throat: Oropharynx is clear and moist. No oropharyngeal exudate. Eyes: Conjunctivae and EOM are normal. Pupils are equal, round, and reactive to light. No scleral icterus. Neck: Neck supple. Cardiovascular: Normal rate, regular rhythm and normal heart sounds. Pulmonary/Chest: Effort normal and breath sounds normal. No respiratory distress. She has no wheezes. She has no rales. Abdominal: Soft. Bowel sounds are normal. She exhibits no mass. There is tenderness (epigastric, umbilical and RLQ. + McBurney's ). There is no rebound and no guarding. Musculoskeletal: She exhibits no edema. Lymphadenopathy: She has no cervical adenopathy. Neurological: She is alert and oriented to person, place, and time. Skin: Skin is warm and dry. Psychiatric: She has a normal mood and affect. ASSESSMENT/PLAN: Daphnie was seen today for pharyngitis, fever, abdominal pain and diarrhea. Diagnoses and associated orders for this visit: Abdominal pain, unspecified abdominal location - Pt is a 29 year old female with several days of abdominal pain that is unlike abdominal pain she has experienced in the past, loose stools, nausea, decreased appetite. She is quite tender over the umbilical area and RLQ. There is a possibility of appendicitis at this time and pt will go form hereto [facility] for labs and CT scan. Urine negative. - POCT urine dipstick - POCT urine - neg - CT abdomen & pelvis with contrast; Future - CBC (with Diff); Future - Comprehensive metabolic panel (non-fasting); Future - Lipase; Future - Amylase; Future Acute pharyngitis, unspecified pharyngitis type - POCT rapid strep A - negative. Likely viral. Sx txr advised. Acute URI - albuterol (PROVENTIL HFA;VENTOLIN HFA;PROAIR) 90 mcg/actuation HFA Aerosol Inhaler; Inhale 2 puffs into the lungs every 4 hours as needed for Wheezing. Use with spacer Family planning advice - norgestimate-ethinyl estradiol 0.18/0.215/0.25 mg-35 mcg (28) Tablet; Take 1 tablet by mouth daily. - POC urine negative today. Pt tolerated this OCP in the past. Discussed Tuesday start andback up method x 1 month. F/u TBD Signs and symptoms that would require prompt medical re-evaluation were discussed with the patient.The patient verbalized understanding and agreement with the plan. CRAIG Morton documented in this encounter Plan of Treatment Not on file documented as of this encounter Procedures Procedure Name Priority Date/Time Associated Diagnosis Comments HEMOGRAM Routine 08/21/2014 12:47 PM EDT Abdominal pain, unspecified abdominal location DIFFERENTIAL, AUTOMATED Routine 08/21/2014 12:47 PM EDT Abdominal pain, unspecified abdominal location CBC (WITH DIFF) Routine 08/21/2014 12:47 PM EDT Abdominal pain, unspecified abdominal location LIPASE Routine 08/21/2014 12:47 PM EDT Abdominal pain, unspecified abdominal location AMYLASE Routine 08/21/2014 12:47 PM EDT Abdominal pain, unspecified abdominal location COMPREHENSIVE METABOLIC PANEL Routine 08/21/2014 12:47 PM EDT Abdominal pain, unspecified abdominal location POCT RAPID STREP A Routine 08/21/2014 12 :05 PM EDT Acute pharyngitis, unspecified pharyngitis type POCT URINE Routine 08/21/2014 12:05 PM EDT Abdominal pain, unspecified abdominal location POCT URINE DIPSTICK Routine 08/21/2014 1 2:05 PM EDT Abdominal pain, unspecified abdominal location documented in this encounter Results * CT abdomen & pelvis with contrast (08/21/2014 3:58 PM EDT) Anatomical Region Laterality Modality Abdomen, Pelvis Computed Tomogra phy 08/21/2014 3:58 PM EDT Impressions 08/21/2014 4:40 PM EDT IMPRESSION: No evidence of acute appendicitis or other acute intra-abdominal pathology. This report was reviewed by Sukhi Hilario at 08/21/2014 4:35 PM Film and interpretation reviewed by the attending Narrative 08/21/2014 4:40 PM EDT EXAMINATION: ??CT Abdomen / Pelvis With Contrast CLINICAL HISTORY: ??pt with RLQ and umbilical pain, nausea, loose stools r/o appendicitis+++TN+++ TECHNIQUE: Helical CT of the abdomen and pelvis was performed ??following intravenous administration of contrast. 110 cc of Omnipaque 350 was given. ??Oral contrast was administered. COMPARISON: ??None FINDINGS: Lung bases: ??Lung bases are clear. No pleural effusions. Liver: ??Normal size, no focal lesions Bile ducts: ??No intrahepatic or extra hepatic biliary ductal dilatation. Gallbladder: ??No calcified gallstones. Normal caliber wall Pancreas: ??Normal Spleen: ??Normal Adrenals: ??Normal Kidneys: ??Normal and symmetric enhancement. No hydronephrosis. Lymph Nodes: ??There are scattered prominent lymph nodes throughout the mesentery. However, no pathologically enlarged lymph nodes identified. Bowel: The appendix and terminal ileum are well visualized and appear unremarkable. No dilated loops of bowel. No bowel wall thickening. No adjacent fat stranding. Peritoneum: No ascites or free air, no fluid collection. Vasculature: Unremarkable. Urinary Bladder: Normal Reproductive organs: Normal Bones: No suspicious lesions. Procedure Note Sukhi Hilario MD - 08/21/2014 EXAMINATION: CT Abdomen / Pelvis With Contrast CLINICAL HISTORY: pt with RLQ and umbilical pain, nausea, loose stoolsr/o appendicitis+++TN+++ TECHNIQUE: Helical CT of the abdomen and pelvis was performed following intravenous administration of contrast. 110 cc of Omnipaque 350 was given.Oral contrast was administered. COMPARISON: None FINDINGS: Lung bases: Lung bases are clear. No pleural effusions. Liver: Normal size, no focal lesions Bile ducts: No intrahepatic or extra hepatic biliary ductal dilatation. Gallbladder: No calcified gallstones. Normal caliber wall Pancreas: Normal Spleen: Normal Adrenals: Normal Kidneys: Normal and symmetric enhancement. No hydronephrosis. Lymph Nodes: There are scattered prominent lymph nodes throughout the mesentery. However, no pathologically enlarged lymph nodes identified. Bowel: The appendix and terminal ileum are well visualized and appear unremarkable. No dilated loops of bowel. No bowel wall thickening. Noadjacent fat stranding. Peritoneum: No ascites or free air, no fluid collection. Vasculature: Unremarkable. Urinary Bladder: Normal Reproductive organs: Normal Bones: No suspicious lesions. IMPRESSION IMPRESSION: No evidence of acute appendicitis or other acute intra-abdominalpathology. This report was reviewed by Sukhi Hilario at 08/21/2014 4:35 PM Film and interpretation reviewed by the attending Stacy Paula MD [facility] CT ORDERABLES * Differential, Automated (08/21/2014 12:47 PM EDT) Neutrophil % 61.2 % CERNER MILLENNIUM Neutrophil Absolute 4.27 1.50 - 6.30 x10(3)/mcL CERNER MILLENNIUM Lymph % 28.4 % CERNER MILLENNIUM Lymphocytes Abs 2.0 1.0 - 3.6 x10(3)/mcL CERNER MILLENNIUM Monocyte % 8.2 % CERNER MILLENNIUM Monocyte Abs 0.6 0.2 - 1.0 x10(3)/mcL CERNER MILLENNIUM Eos % 1.7 % CERNER MILLENNIUM Eosinophils Abs 0.1 0.0 - 0.5 x10(3)/mcL CERNER MILLENNIUM Basophil % 0.4 % CERNER MILLENNIUM Baso Absolute 0.0 0.0 - 0.2 x10(3)/mcL CERNER MILLENNIUM Immature Gran % 0.10 % CERN ER MILLENNIUM Comment: Immature granulocytes(IG's)percentage and absolute count will include metamyelocytes, myelocytes, and promyelocytes. Blood smears from CBCs yielding IG's will be scanned manually for concordance. If this scan disagrees with the automated IG or if promyelocytes are noted, a manual differential will be performed. Immature Gran Absolute 0.01 0.00 - 0.05 x10(3)/mcL CERNER MILLENNIUM Blood specimen (specimen) 08/21/2014 12:47 PM EDT 08/21/2014 1:11 PM EDT Narrative Resulting Agency Comment Spec In Lab Stacy Paula MD HEMATOLOGY ORDERA BLES CERNER MILLENNIUM * Hemogram (08/21/2014 12:47 PM EDT) White Blood Cell 7.0 4.0 - 10.0 x10(3)/mcL CERNER MILLENNIUM Red Blood Cell 5.15 3.93 - 5.22 x10(6)/mcL CERNER MILLENNIUM Hemoglobin 15.4 11.2 - 15.7 gm/dL CERNER MILLENNIUM Hematocrit 44.7 34.0 - 45.0 % CERNER MILLENNIUM Mean Cell Volume 86.8 79.0 - 94.0 fL CERNER MILLENNIUM Mean Cell Hemoglobin 29.9 26.6 - 32.2 pg CERNER MILLENNIUM Mean Cell Hemoglobin Concentration 34.5 32.0 - 36.5 gm/dL CERNER MILLENNIUM Platelet 220 145 - 370 x10(3)/mcL CERNER MILLENNIUM RDW Standard Deviation 39.9 35.0 - 46.0 fL CERNER MILLENNIUM RDW coefficient of variation 12.5 10.9 - 14.4 % [facility] MILL[facility] Mean Platelet Volume 10.4 9.0 - 12.0 fL CERNER MILLENNIUM Blood specimen (specimen) 08/21/2014 12:47 PM EDT 08/21/2014 1:11 PM EDT Narrative Resulting Agency Comment Spec In Lab Stacy Paula MD HEMATOLOGY ORDERA BLES Performing Organization Address [facility] de Phone Number [facility] * Amylase (08/21/2014 12:47 PM EDT) Amylase 48 28 - 100 unit/L [facility] MILLENNIUM Blood specimen (specimen) 08/21/2014 12:47 PM EDT 08/21/2014 1:11 PM EDT Narrative Resulting Agency Comment Spec In Lab Stacy Paula MD CHEMISTRY ORDERAB LES Performing Organization Address [facility] Co de Phone Number [facility] * Lipase (08/21/2014 12:47 PM EDT) Lipase 26 0 - 60 unit/L [facility] Blood specimen (specimen) 08/21/2014 12:47 PM EDT 08/21/2014 1:11 PM EDT Narrative Resulting Agency Comment Spec In Lab Stacy Paula MD CHEMISTRY ORDERAB LES Performing Organization Address [facility] Co de Phone Number [facility] * Comprehensive metabolic panel (non-fasting) (08/21/2014 12:47 PM EDT) Glucose 97 60 - 199 mg/dL [facility] Comment:Diabetes: >=200 mg/d L plus symptoms Blood Urea Nitrogen 12 8 - 18 mg/dL [facility] MILLENNIUM Creatinine 0.83 0.70 - 1.20 mg/dL [facility] MILLENNIUM Comment: Please note that the pediatric reference intervals supplied above were not validated at [facility]. Results from pediatric patients should be interpreted in conjunction to the patient's age, height and muscle mass. Sodium 140 135 - 145 mmol/L CERNER MILLENNIUM Potassium 4.2 3.5 - 5.0 mmol/L CERNER MILLENNIUM Comment: Please note: ??Patients with WBC >100,000 may have falsely elevated Potassium levels. ??For accurate Potassium quantification in these patients send serum separator tube (gold top) for subsequent determinations. ??Contact the Clinical Chemistry Laboratory if there are any questions. Chloride 100 98 - 107 mmol/L CERNER MILLENNIUM Carbon Dioxide 29 22 - 31 mmol/L CERNER MILLENNIUM Anion Gap 11 5 - 15 mmol/L CERNER MILLENNIUM Calcium 9.6 8.5 - 10.5 mg/dL CERNER MILLENNIUM Protein, Total 7.4 6.1 - 8.0 gm/dL CERNER MILLENNIUM Albumin 4.8 3.2 - 5.2 gm/dL CERNER MILLENNIUM Aspartate Aminotransferase 22 0 - 30 unit/L CERNER MILLENNIUM Alanine Aminotransferase 26 0 - 30 unit/L CERNER MILLENNIUM Alkaline Phosphatase 49 40 - 104 unit/L CERNER MILLENNIUM Bilirubin, [...] the following links into your internet browser. [email or web address] Blood specimen (specimen) 08/21/2014 12:47 PM EDT 08/21/2014 1:11 PM EDT Narrative Resulting Agency Comment Spec In Lab Stacy Paula MD CHEMISTRY ORDERAB LES [facility] [employer] * POCT urine (08/21/2014 12:05 PM EDT) [facility] POC Urine HCG Negative Negative - Negative POC Control Internal Controls Acceptable 08/21/2014 12:0 5 PM EDT Stacy Paula MD POINT OF CARE MARAL T ORDERABLES * POCT urine dipstick (08/21/2014 12:05 PM EDT) [facility] POC Sp [place] 1.010 1.002 - 1.030 POC pH, UA 7 5.0 - 8.5 POC Leuk, UA neg Negative - Negative POC Nitrite, UA neg Negative - Negative POC Protein, UA neg Negative - Negative mg/dL POC Glucose, UA norm Normal - Normal mg/dL POC Ketone, UA neg Negative - Negative POC Urobil, UA norm 0.2 - 1.0 mg/dL POC Bili, UA neg Negative - Negative POC Blood, UA neg Negative - Negative ginny/uL 08/21/2014 12:0 5 PM EDT Stacy Paula MD POINT OF CARE MARAL T ORDERABLES * POCT rapid strep A (08/21/2014 12:05 PM EDT) [facility] POC Grp A Strep Negative Negative - Negative POC Control Internal Controls Acceptable 08/21/2014 12:0 5 PM EDT Stacy Paula MD POINT OF CARE MARAL T ORDERABLES documented in this encounter Visit Diagnoses Diagnosis Abdominal pain, unspecified abdominal location Acute pharyngitis, unspecified pharyngitis type Acute URI Acute upper respiratory infections of unspecified site Family planning advice Other general counseling and advice for contraceptive management Abdominal pain, unspecified abdominal location documented in this encounter Care Teams Power Hammer Operator Relationship Specialty Start Date End Date Stacy Paula MD [facility] [address] [facility] [place] [address] PCP - General 03/31/10 11/01/16 documented as of this encounter
--- OUTSIDE RECORDS SUMMARY | 2023-12-20 02:05 | XMS_ITS | Encounter Summary ---
Author Organization [facility] [place] [address] Care Team Providers Care Hawk [employer] Name Role Phone Alfa Harry MD Primary Care Provider Reason for Visit * Reason Comments Follow-up Encounter Details Date Type Department Care Team (Late st Contact Info) Description 02/10/2021 2:00 PM EDT Office Visit Obstetrics [place] [address] Alaina Smalls, MICROSOFT DEVELOPER [facility] OBSTETRICS [place] [address] Abnormal uterine bleeding (Primary Dx); Fatigue, unspecified type Social History Tobacco Use Types Packs/Day Years [...] Sign Reading Time Taken Comments Blood Pressure 123/74 02/10/2021 1:48 PM EDT Pulse 70 02/10/2021 1:48 PM EDT Temperature 36.7 ??C (98.1 ??F) 02/10/2021 1:48 PM ED T Respiratory Rate 16 02/10/2021 1:48 PM EDT Oxygen Saturation 100% 02/10/2021 1:48 PM EDT Inhaled Oxygen Concentration - - Weight 80 kg (176 lb 6.4 oz) 02/10/2021 1:48 PM EDT Height 156.2 cm (5' 1.5) 02/10/2021 1:48 PM EDT Body Mass Index 32.79 02/10/2021 1:48 PM EDT documented in this encounter Progress Notes * Alaina Smalls APRN - 02/10/2021 2:00 PM EDT CC: AUB Subjective: Benja Villatoro is a 36 y.o. female who is here today for an IUD string check. Benja had a Kyleena IUD placed in May 2019. She never had a follow-up due to COVID. Overall she's been happy with the IUD and she's been able to check her strings. The first year she got a menses every 4 weeks for 8-10 days, which seems to be a heavier flow. The last 6 months she's had a menses lasting for 6-8 days and the flow seems to be cook starch. Starting January 08 she had her menses, which came 5 days early. This was a heavy flow and required her to change a tampon every 1.5-3 hours, which is very abnormal for her. This went on for 3.5 weeks intermittently. She feels fairly fatigued currently. She can no longer feel the IUD strings. She's not bled for the last 8 days. Benja is currently sexually active. Almost a month since her last intercourse. Her Aunt had a total hysterectomy at 39 years old for uterine fibroids. Patient Active Problem List Diagnosis Date Noted ??? Intrauterine device surveillance 06/07/2019 ??? Hypothyroidism 06/07/2019 ??? Obesity 05/26/2009 History reviewed. No pertinent past medical history. History reviewed. No pertinent surgical history. Outpatient Medications Marked as Taking for the 02/10/21 encounter (Office Visit) with Alaina Smalls APRN Medication Sig Dispense Refill ??? cholecalciferol, Vitamin [...] Take 100 mg by mouth daily. No Known Allergies ROS: See HPI, all others negative. Objective: BP 123/74 Pulse 70 Temp 36.7 ??C (98.1 ??F) (Temporal) Resp 16 Ht 156.2 cm (5' 1.5) Wt 80 kg (176 lb 6.4 oz) SpO2 100% BMI 32.79 kg/m?? General: Appears healthy and well nourished. No apparent distress. Pelvic Exam: Urethra: No lesions. Normal opening. Vulva: No lesions. Normal hair distribution. Normal architecture is present and clitoral castellanos is retractable. Vagina: [place], moist, rugated. Normal discharge noted. No lesions. No cystocle, rectocele or prolapse. Cervix: No CMT. Posterior, pink and smooth. IUD strings protruding 2.5cm from cervical os. No abnormal discharge. Uterus: Small, firm, mobile. Slight tenderness midline with deep pressure. Adnexa: No masses or tenderness bilaterally. Ovaries non-palpable. Results for orders placed or performed in visit on 02/10/21 POCT urine Result Value Ref Range POC Urine HCG Negative Negative - Negative POC Control Internal Controls Acceptable Assessment/Plan: AUB. test negative. Will check TSH today and hemogram as well. Sent STI screening to ruleout infection. Scheduled U/S imaging to check IUD placement and uterine anatomy. Will follow-up after imaging to review results. Plan for aygestin taper if Benja starts bleeding heavily again before her next visit. ALAINA SMALLS APRN 02/10/2021 documented in this encounter Miscellaneous Notes * Addendum Note - Parth Hermosillo - 02/10/2021 2:00 PM EDTAddended by: PARTH HERMOSILLO on: 02/10/2021 04:34 PM Modules accepted: Orders documented in this encounter Plan of Treatment Not on file documented as of this encounter Procedures Procedure Name Priority Date/Time Associated Diagnosis Comments HC VENIPUNCTURE Routine 02/10/2021 4:47 PM EDT Abnormal uterine bleeding Fatigue, unspecified type HC THYROID STIMULATING HORMONE, SERUM Routine 02/10/2021 4:47 PM EDT Abnormal uterine bleeding Fatigue, unspecified type HC GC GENE AMP Routine 02/10/2021 4:24 PM EDT Abnormal uterine bleeding POCT URINE Routine 02/10/2021 Abnormal uterine bleeding documented in this encounter Results * US Transvaginal Non OB (03/03/2021 10:56 AM EDT) Anatomical Region Laterality Modality Ultrasound 03/03/2021 10:2 3 AM EDT Impressions 03/03/2021 11:16 AM EDT 1. Anteverted uterus. No fibroids seen. 2. The central endometrial echo complex appears normal and measures 3.6 mm. 3. An IUD is present in normal position in the endometrial cavity. 4. 3.3 cm simple right ovarian cyst, otherwise both ovaries are normal. Thank you for letting us participate in the care of this patient. If you are a health care provider and have any questions regarding this report, please contact the number above. For patients who have questions, please contact the health elderly caregiver that requested your imaging first. ? Viraj Davis, Staff Physician Electronically Signed Final Report ?? 03/03/2021 11:16 am Narrative 03/03/2021 11:16 AM EDT Gynecological Report ?(Signed Final 03/03/2021 11:16 am) PATIENT INFO: ID #: ? [id number] ?: ??[birth year] (36 yrs)(F) Name: ? BENJA VILLATORO ? Visit Date: 03/03/2021 10:23 am PERFORMED BY: Performed By: ? Mariia Patrick RDMS Attending: ?Ryan BARNETT, Viraj Raphael Referred By: ?ALAINA SMALLS Location: ? [place] SERVICE(S) PROVIDED: UTV - Transvaginal - [id number] ?[id number] U3D - ??3D rendering with interpretation - [id number] ? [id number] UPELIM - Pelvis Limited - [id number] ? [id number] INDICATIONS: New onset AUB with Kyleena IUD in place.; History of: Abnormal bleeding TECHNIQUE/SCAN QUALITY: Technique: ?Transducer ID#: [id number] -------- HISTORY: -------- Age: ?? 36 ------- UTERUS: ------- Uterus: ? Visualized Position: ?? Anteverted Size (cm) ?L: ??7.5 ? W: ?? 3.4 ?H: ??3.4 ENDOMETRIUM: Endometrium: ?Normal Thickness(mm): ?3.55 Comment: ? 3D rendering with interpretation was performed ?for IUD placement. IUD seen in normal position ?within the endometrial cavity ------- CERVIX: ------- Small amount of fluid seen within the cervical canal CUL-DE-SAC: No fluid is visualized. RIGHT OVARY: Status: ?? Visualized Size (cm) ?L: ??4.2 ? W: ?? 3.2 ?H: ??2.4 Vol (ml): ?16.9 Morphology: ?Normal appearance Type: ?? Simple cyst Size (cm) ?L: ??3.3 ? W: ?? 2.6 ?H: ??1.8 Vol (ml): ?8.1 LEFT OVARY: Status: ?? Visualized Size (cm) ?L: ??2.9 ? W: ?? 1.7 ?H: ??1.1 Vol (ml): ?2.8 Morphology: ?Normal appearance Comment: ? Ovary was not seen transvaginally, therefore ?transabdominal ultrasound was performed. Procedure Note Viraj Davis MD - 03/03/2021 Gynecological Report (Signed Final 03/03/2021 11:16 am) PATIENT INFO: ID #: [id number] : [birth year] (36 yrs)(F) Name: BENJA VILLATORO Visit Date: 03/03/2021 10:23 am PERFORMED BY: Performed By: Mariia Patrick RDMS Attending: Viraj Davis MD Referred By: ALAINA SMALLS Location: [place] SERVICE(S) PROVIDED: UTV - Transvaginal - [id number] U3D - 3D rendering with interpretation - [id number] UPELIM - Pelvis Limited - [id number] INDICATIONS: New onset AUB with Kyleena IUD in place.; History of: Abnormal bleeding TECHNIQUE/SCAN QUALITY: Technique: Transducer ID#: [id number] -------- HISTORY: -------- Age: 36 ------- UTERUS: ------- Uterus: Visualized Position: Anteverted Size (cm) L: 7.5 W: 3.4 H: 3.4 ENDOMETRIUM: Endometrium: Normal Thickness(mm): 3.55 Comment: 3D rendering with interpretation was performed for IUD placement. IUD seen in normal position within the endometrial cavity ------- CERVIX: ------- Small amount of fluid seen within the cervical canal CUL-DE-SAC: No fluid is visualized. RIGHT OVARY: Status: Visualized Size (cm) L: 4.2 W: 3.2 H: 2.4 Vol (ml): 16.9 Morphology: Normal appearance Type: Simple cyst Size (cm) L: 3.3 W: 2.6 H: 1.8 Vol (ml): 8.1 LEFT OVARY: Status: Visualized Size (cm) L: 2.9 W: 1.7 H: 1.1 Vol (ml): 2.8 Morphology: Normal appearance Comment: Ovary was not seen transvaginally, therefore transabdominal ultrasound was performed. IMPRESSION 1. Anteverted uterus. No fibroids seen. 2. The central endometrial echo complex appears normal and measures 3.6 mm. 3. An IUD is present in normal position in the endometrial cavity. 4. 3.3 cm simple right ovarian cyst, otherwise both ovaries are normal. Thank you for letting us participate in the care of this patient. If you are a health care provider and have any questions regarding this report, please contact the number above. For patients who have questions, please contact the health elderly caregiver that requested your imaging first. Viraj Davis, Staff Physician Electronically Signed Final Report 03/03/2021 11:16 am Alaina Smalls APRN IMG US PELVI C ORDERABLES * (ABNORMAL) Hemogram (02/10/2021 4:47 PM EDT) White Blood Cell 10.0(H) 4.0 - 9.5 x10(3)/mc L [facility] Red Blood Cell 4.55 4.00 - 5.21 x10(6)/mc L [facility] Hemoglobin 13.7 11.7 - 15.5 g/dL [facility] Hematocrit 39.3 35.7 - 45.8 % [facility] Mean Cell Volume 86.4 82.6 - 94.4 fL [facility] Mean Cell Hemoglobin 30.1 27.1 - 32.0 pg [facility] Mean Cell Hemoglobin Concentration 34.9 31.7 - 35.0 g/dL [facility] Platelet 206 145 - 357 x10(3)/mc L [facility] RDW Standard Deviation 36.6(L) 37.0 - 46.0 [facility] RDW coefficient of variation 11.7 11.5 - 14.1 % [facility] Mean Platelet Volume 10.6 7.6 - 12.9 [facility] NRBC% auto 0.0 % [facility] NRBC Absolute 0.000 0.000 - 0.000 x10(3)/ L [facility] Blood 02/10/2021 4:47 PM EDT 02/10/2021 5:04 PM EDT Narrative Resulting Agency Comment Spec In Lab Alaina Smalls APRN HEMATOLOGY O RDERABLES [facility] [place] [address] * TSH (02/10/2021 4:47 PM EDT) Thyroid Stimulating Hormone 1.65 0.27 - 4.20 mcIU/mL [facility] Comment: Reference Interval (mcIU/mL): Females: ??First Trimester: 0.23-3.88 ??Second Trimester: 0.22-3.90 ??Third Trimester: 0.44-4.66 Blood 02/10/2021 4:47 PM EDT 02/10/2021 5:04 PM EDT Narrative Resulting Agency Comment Spec In Lab Alaina Smalls [employer] DEVELOPER CHEMISTRY OR DERABLES Performing Organization Address City/[facility]/ZIP Co de Phone Number [facility] [place] [address] * GC/Chlamydia ([facility]/CGP/APD/NLH) Vaginal (02/10/2021 4:24 PM EDT) Pathologist [facility] GC Gene Amp Negative Negative [facility] Comment: The only FDA approved specimen types for this assay are cervical, vaginal, urethral and urine. Non-FDA approved sources are eye, throat and rectal and have been internally validated. GC Source Vaginal [facility] Chlamydia Gene Amp Negative Negative [facility] Comment: The only FDA approved specimen types for this assay are cervical, vaginal, urethral and urine. Non-FDA approved sources are eye, throat and rectal and have been internally validated. Chlm Source Vaginal [facility] Vaginal 02/10/2021 4:24 PM EDT 02/10/2021 4:24 PM EDT Narrative Resulting Agency Comment Spec In Lab Alaina Smalls [employer] DEVELOPER MICROBIOLOGY - GENERAL ORDERABLES Performing Organization Address City/[facility]/ZIP Co de Phone Number [facility] [place] [address] * POCT urine (02/10/2021) POC Urine HCG Negative Negative - Negative POC Control Internal Controls Acceptable Alaina Smalls [employer] DEVELOPER POINT OF CAR E TEST ORDERABLES documented in this encounter Visit Diagnoses Diagnosis Abnormal uterine bleeding- Primary Unspecified disorder of menstruation and other abnormal bleeding from female genital tract Fatigue, unspecified type Abnormal uterine bleeding Unspecified disorder of menstruation and other abnormal bleeding from female genital tract documented in this encounter Care Teams [employer] Relationship Specialty Start Date End Date Alfa Harry MD [facility] [place] [address] PCP - General General Internal Medicine 05/31/1910/08 documented as of this encounter
--- OUTSIDE RECORDS SUMMARY | 2023-12-20 02:05 | XMS_ITS | Encounter Summary ---
Author Organization [facility] [place] [address] Care Team Providers Care Claim Manager Name Role Phone Alfa Harry MD Primary Care Provider [phone] Reason for Visit * Reason Onset Date Comments Establish Care 05/30/2019 Encounter Details Date Type Department Care Team (Late st Contact Info) Description 05/30/2019 Telephone Weight and Wellness at [facility] [address] [place] [address] Concepcion Mendez Establish Care Social History Tobacco Use Types Packs/Day Years [...] encounter Miscellaneous Notes * Telephone Encounter - Concepcion Mendez - 05/30/2019 10:17 AM EST Ask caller: are you a physician, resident or medical student? no Caller and Relationship (if other than patient-full name): Patient Call Back Number: [phone] Best Time to Call Back: any OK to Leave Message: y Requested Site/Provider: [facility] Immediate Needs: Comments: Patient has not been seen since 2014 but wants to stay at the clinic. Please contact backto discuss. documented in this encounter Plan of Treatment Not on file documented as of this encounter Visit Diagnoses Not on filedocumented in this encounter Care Teams Claim Manager Relationship Specialty Start Date End Date Alfa Harry MD [facility] [place] [address] PCP - General General Internal Medicine 05/31/19 609/27 documented as of this encounter
--- OUTSIDE RECORDS SUMMARY | 2023-12-20 02:05 | XMS_ITS | Encounter Summary ---
Author Organization [facility] Address [facility] [place] [address] Care Team Providers Care Surveyor Rod Helper Name Role Phone Stacy Adams MD Primary Care Provider [phone] Encounter Details Date Type Department Care Team (Late st Contact Info) Description 11/23/2010 2:55 PM EDT - 11/23/2010 11:59 PM EDT Hospital [place] [address] CLINIC, Stacy Whittington MD [facility] [place] [address] Breast tenderness in female Discharge Disposition: Home Social History Tobacco Use [...] Sig Dispensed Refills Start Date End Date norgestimate-ethinyl estradiol (TRINESSA, 28,) 0.18/0.215/0.25 mg-35 mcg (28) tabletIndications: control Take 1 tablet by mouth daily. 90 tablet 3 10/26/2010 07/09/2013 documented as of this encounter Plan of Treatment Not on file documented as of this encounter Procedures Procedure Name Priority Date/Time Associated Diagnosis Comments MAMMO BREAST US LIMITED Routine 11/23/2010 3:45 PM EDT Mastodynia documented in this encounter Results * MAMMO BREAST US UNILATERAL BILATERAL (11/23/2010 3:45 PM EDT) Anatomical Region Laterality Modality Breast N/A Mammography 11/23/2010 3:45 PM EDT Narrative 11/23/2010 4:37 PM EDT LEFT BREAST ULTRASOUND ON 11/23/10: ?? CLINICAL INDICATION: 25 YO with focal tenderness for three months in the upper, outer quadrant of the Left breast. The doctor's office note describes the location at 1100 (upper, inner quadrant) but the patient says that the area of concern is in the upper, outer quadrant and indicates an area at 0100, 8cm to the nipple. ?? FINDINGS: Focused ultrasound to the indicated area of clinical concern per the patient and also per the doctor's office note shows no sonographic abnormality. There are no cysts or solid masses identified in either the upper, outer quadrant or the upper, inner quadrant of the Left breast. Further management should be based on the strengths of the clinical concerns. ?? CONCLUSION: ?? NEGATIVE Left breast ultrasound (BIRADS Category 1). No sonographic abnormality for the patient's focal breast tenderness. Clinical follow-up advised. Procedure Note Agueda Cox MD - 11/23/2010 LEFT BREAST ULTRASOUND ON 11/23/10: CLINICAL INDICATION: 25 YO with focal tenderness for three months in theupper, outer quadrant of the Left breast. The doctor's office note describes the location at 1100 (upper, inner quadrant) but the patient says that thearea of concern is in the upper, outer quadrant and indicates an area at 0100, 8cmto the nipple. FINDINGS: Focused ultrasound to the indicated area of clinical concern perthe patient and also per the doctor's office note shows no sonographicabnormality. There are no cysts or solid masses identified in either the upper, outer quadrant or the upper, inner quadrant of the Left breast. Furthermanagement should be based on the strengths of the clinical concerns. CONCLUSION: NEGATIVE Left breast ultrasound (BIRADS Category 1). No sonographicabnormality for the patient's focal breast tenderness. Clinical follow-up advised. Stacy P Bryan MD IMG MAMMO ORDERAB LES documented in this encounter Visit Diagnoses Diagnosis Breast tenderness in female Mastodynia documented in this encounter Care Teams Surveyor Rod Helper Relationship Specialty Start Date End Date Stacy Adams MD [facility] [address] [place] [address] PCP - General 03/31/10 11/01/16 documented as of this encounter
--- OUTSIDE RECORDS SUMMARY | 2023-12-20 02:05 | XMS_ITS | Encounter Summary ---
Author Organization [facility] [place] [address] Care Team Providers Care Certification Technician Name Role Phone Stacy Adams MD Primary Care Provider [phone] Reason for Visit * Reason Comments Medication Refill Encounter Details Date Type Department Care Team (Late st Contact Info) Description 10/24/2010 Refill Internal Medicine at [address] [facility] [place] [address] control Social History Tobacco Use Types Packs/Day Years Used Date Smoking Tobacco: Never Assessed Sex and Gender Information Value Date Recorded Sex Assigned at Not on file Gender Identity Not on file Sexual Orientation Not on file documented as of this encounter Plan of Treatment Not on file documented as of this encounter Visit Diagnoses Diagnosis control Unspecified contraceptive management documented in this encounter Care Teams Certification Technician Relationship Specialty Start Date End Date Stacy Adams MD [facility] [place] [address] PCP - General 03/31/10 11/01/16 documented as of this encounter
--- OUTSIDE RECORDS SUMMARY | 2023-12-20 02:05 | XMS_ITS | Encounter Summary ---
Author Organization [facility] Address [facility] [place] [address] Care Team Providers Care Bdr Name Role Phone Alfa Harry MD Primary Care Provider [phone] Encounter Details Date Type Department Care Team (Late st Contact Info) Description 10/16/2021 Interpretation Only [address] [id number] Parth Marie MD [address] [place] [address] Social History Tobacco Use Types Packs/Day Years [...] Name Priority Date/Time Associated Diagnosis Comments XR HIP 2-3 VIEWS LEFT STAT 10/16/2021 9:01 PM EDT documented in this encounter Results * XR Hip 2-3 Views Left (10/16/2021 9:01 PM EDT) PT CLASS E DH RAD ADMITDTTM RAD PT RAD INFO [id number]^FIND MATTHEW^PARTH GODOY RAD EXAM DESC XRHIPTVL^XR LEFT HIP UNILATERAL 2+ VIEWS^RIS RAD Anatomical Region Laterality Modality Hip Left Radiographic Destiny ging Impressions 10/16/2021 9:28 PM EDT No osteoarticular abnormality. Thank you for letting us participate in the care of this patient. ??If you are a health care provider and have any questions regarding this report, please contact the number below. ??For patients who have questions please contact the health senior care manager that requested your imaging first. ? Electronically signed by: Lisa Cuellar MD, [facility] ([phone]), at 10/16/2021 9:28 PM Narrative 10/16/2021 9:28 PM EDT EXAMINATION: XR LEFT HIP UNILATERAL 2+ VIEWS CLINICAL HISTORY: L hip pain TECHNIQUE: Single frontal view of the pelvis. 2 views of left hip. Number of images: 3. COMPARISON: CT abdomen pelvis without contrast 03/07/2018. Pelvic sonogram 03/03/2021. FINDINGS: No acute fracture, dislocation, or destructive osseous lesion. No abnormal soft tissue gas. Intrauterine device is present. A cylindrical lucency projecting over midline lower pelvis likely represents a tampon. Nonobstructive bowel gas pattern. Left pelvic phleboliths. Procedure Note Yang Cuellar MD - 10/16/2021 EXAMINATION: XR LEFT HIP UNILATERAL 2+ VIEWS CLINICAL HISTORY: L hip pain TECHNIQUE: Single frontal view of the pelvis. 2 views of left hip. Number of images: 3. COMPARISON: CT abdomen pelvis without contrast 03/07/2018. Pelvic datojkjx97/26/2021. FINDINGS: No acute fracture, dislocation, or destructive osseous lesion. No abnormalsoft tissue gas. Intrauterine device is present. A cylindrical lucencyprojecting over midline lower pelvis likely represents a tampon. Nonobstructive bowelgas pattern. Left pelvic phleboliths. IMPRESSION No osteoarticular abnormality. Thank you for letting us participate in the care of this patient. If youare a health care provider and have any questions regarding this report,please contact the number below. For patients who have questions please contactthe health senior care manager that requested your imaging first. Parth Marie MD IMG DX ORDERABL ES documented in this encounter Visit Diagnoses Not on filedocumented in this encounter Care Teams Bdr Relationship Specialty Start Date End Date Alfa Harry MD [facility] [place] [address] PCP - General General Internal Medicine 05/31/19 6/2 09/27 documented as of this encounter
--- OUTSIDE RECORDS SUMMARY | 2023-12-20 02:05 | XMS_ITS | Encounter Summary ---
Author Organization [facility] Address [facility] [place] [address] Care Team Providers Care Railroad Hand Name Role Phone Stacy Adams MD Primary Care Provider [phone] Reason for Visit * Reason Onset Date Comments Medication Refill 07/30/2015 Encounter Details Date Type Department Care Team (Late st Contact Info) Description 07/30/2015 Refill Internal Medicine at [address] [address] Milena Wilson Acute URI Social History Tobacco Use Types [...] encounter Miscellaneous Notes * Telephone Encounter - Milena Sun - 07/30/2015 2:41 PM EDT Patient is also asking that her control Rx be sent to the [facility] as non generic, low dose, 3 months supply. documented in this encounter Plan of Treatment Not on file documented as of this encounter Visit Diagnoses Diagnosis Acute URI Acute upper respiratory infections of unspecified site documented in this encounter Care Teams Railroad Hand Relationship Specialty Start Date End Date Stacy Adams MD [facility] GENERAL [place] [address] PCP - General 03/31/10 11/01/16 documented as of this encounter
--- OUTSIDE RECORDS SUMMARY | 2023-12-20 02:05 | XMS_ITS | Encounter Summary ---
Author Organization [facility] [place] [address] Care Team Providers Care Linen Aide Name Role Phone Stacy Paula MD Primary Care Provider [phone] Reason for Visit * Reason Comments Annual Exam Gynecologic Exam Encounter Details Date Type Department Care Team (Late st Contact Info) Description 11/20/2010 9:00 AM EDT Office Visit Internal Medicine at [address] [address] Stacy Paula MD [facility] [place] [address] Annual physical exam (Primary Dx); H/O: hypothyroidism; Breast tenderness in female Discharge Disposition: Home [...] Sign Reading Time Taken Comments Blood Pressure 118/68 11/20/2010 9:12 AM EDT Pulse 65 11/20/2010 9:12 AM EDT Temperature 36.1 ??C (97 ??F) 11/20/2010 9:12 AM EDT Respiratory Rate - - Oxygen Saturation 99% 11/20/2010 9:12 AM EDT Inhaled Oxygen Concentration - - Weight 91.6 kg (202 lb) 11/20/2010 9:12 AM EDT Height 154.9 cm (5' 1) 11/20/2010 9:12 AM EDT Body Mass Index 38.17 11/20/2010 9:12 AM EDT documented in this encounter Progress Notes * Stacy Paula MD - 11/20/2010 9:30 AM EDT Subjective: Patient ID: Daphnie Lopez is a 25 y.o. female. HPI here for an annual. Pt is getting next week to her high school [employer]. Review of Systems Left breast tenderness Objective: Physical Exam BP 118/68 Pulse 65 Temp 36.1 ??C (97 ??F) Ht 1.549 m (5' 1) Wt 91.627 kg (202 lb) BMI 38.17 kg/m2 SpO2 99% General Appearance: Alert, cooperative, no distress, appears stated age Head: Normocephalic, without obvious abnormality, atraumatic Eyes: PERRL, conjunctiva/corneas clear, EOM's intact, fundi benign, both eyes Ears: Normal TM's and external ear canals, both ears Nose: Nares normal, septum midline, mucosa normal, no drainage or sinus tenderness Throat: Lips, mucosa, and tongue normal; teeth and gums normal Neck: Supple, symmetrical, trachea midline, no adenopathy; thyroid: no enlargement/tenderness/nodules; no carotid bruit or JVD Back: Symmetric, no curvature, ROM normal, no CVA tenderness Lungs: Clear to auscultation bilaterally, respirations unlabored Chest Wall: No tenderness or deformity Heart: Regular rate and rhythm, S1 and S2 normal, no murmur, rub or gallop Breast Exam: + left Tenderness at 11:00 with a small masses,no nipple abnormality Abdomen: Soft, non-tender, bowel sounds active all four quadrants, no masses, no organomegaly Genitalia: Normal female without lesion, discharge or tenderness,pap today Rectal: deferred Extremities: Extremities normal, atraumatic, no cyanosis or edema Pulses: 2+ and symmetric all extremities Skin: Skin color, texture, turgor normal, no rashes or lesions Lymph nodes: Cervical, supraclavicular, and axillary nodes normal Neurologic: CNII-XII intact, normal strength, sensation and reflexes throughout Assessment and Plan: 1. H/o hypothyroidism/goiter- will send for tsh and free t 4 to evaluate further. 2. Left breast tenderness-will send for ultrasound of this to evaluate for a cyst vs mass. 3. Obesity- continue with weight loss 4. Prevention : bmp today and pap today. documented in this encounter Miscellaneous Notes * Miscellaneous - John Structural Engineer - 11/20/2010 10:26 AM EDT documented in this encounter Plan of Treatment Scheduled Orders Name Type Priority Associated Diagnoses Orde r Schedule Cytopathology Gynecological Lab Routine Annual physical exam Ordered: 11/20/2010 documented as of this encounter Procedures Procedure Name Priority Date/Time Associated Diagnosis Comments CONTINUITY EDITOR CYTOLOGY FINAL REPORT Routine 11/20/2010 3:17 PM EDT TSH Routine 11/20/2010 10:57 AM EDT H/O: hypothyroidism T4, FREE Routine 11/20/2010 10:57 AM EDT H/O: hypothyroidism BASIC METABOLIC PANEL Routine 11/20/2010 10:57 AM EDT H/O: hypothyroidism documented in this encounter Results * CONTINUITY EDITOR CYTOLOGY FINAL REPORT (11/20/2010 3:17 PM EDT) Content Analyst Cytology Final Report ? [facility] ? Provider: ?? STACY PAULA ??Pt. Name: ?? DAPHNIE LOPEZ ?P ? Acc #: ?[id number] ?Pt. ? Col Date: ?? 11/20/2010 ? /Sex: ?1985,(25 years),Female ? Rec Date: ?? 11/20/2010 ? LOC: ?[facility] ? CYTOPATHOLOGY: ??CONTINUITY EDITOR ? ---Adequacy--- ? Specimen submitted is satisfactory for evaluation. ??No endocervical ? component present . ? Note: ??Initial cross-sectional studies suggested that LAURA cells were more ? commonly identified when an endocervical component was present, however ? subsequent longitudinal studies fail to show that women lacking an ? endocervical component in a Pap smear are at increased risk for LAURA. ? ---Cytopathologic Diagnosis--- ? NORMAL ? Negative for Intraepithelial Lesion or Malignancy (NILM). ? 11/27/10 ?? Screened by: ??SLA ? 11/27/10 ?? Verified by: ??Ruben CT(ASCP), Hoda De - ? Drug Abuse Worker ? ---Clinical Information--- ? Hormones?: ?Yes ? Hysterectomy?: ?No ?: ?No ?: ?No ? I.U.D.?: ?No ? Pelvic Radiation: ? No ? Prior CONTINUITY EDITOR Therapy?: ? No ? Hist Abnl Pap/Biopsy?: ??No ? --- ? HPV Option: ? Reflex HPV ? Specimen Source: ?Cervical Endocervical LBP ? Preparation: ?Liquid Based Pap ? LMP: ?11/02/10 ? --- ? Hist of HPV Vaccine?: ?? No ? Hist of Smoking?: ? No ? Hist of QUETA exposure?: ??No ? Clinical Data, Significant Therapy and Clinical Impression: ?Diagnosis: Annual Physical Exam ? [facility] ? Provider: ?? STACY PAULA ??Pt. Name: ?? DAPHNIE LOPEZ ?P ? Acc #: ?[id number] ?Pt. ? Col Date: ?? 11/20/2010 ? /Sex: ?1985,(25 years),Female ? Rec Date: ?? 11/20/2010 ? LOC: ?[facility] ? This Pap Test has been evaluated with the assistance of the ThinPrep Pap ? Test Imaging System. ? CYTOPATHOLOGY: ??CONTINUITY EDITOR ? Note: ? The Pap test is a screening test for cervical cancer with an inherent ? false-negative rate dependent upon several variables. ??For further ? information please contact the [facility] Laboratory. ? Reference: ??Epi CS. ??Psychology Department Chair of Pap Smear Results. ??In: ? Harmony BS, [facility], ed. ??The Pap Smear. ??[place]: ??Zheng, 2002: ? 71-77. CERNER MILLENNIUM 11/20/2010 3:17 PM EDT Stacy Paula MD PATHOLOGY/CYTOLOG Y ORDERABLES CERNER IFEANYIENNIUM * (ABNORMAL) Basic metabolic panel (11/20/2010 10:57 AM EDT) Glucose 101 60 - 199 mg/dL CERNER MILLENNIUM Comment:Diabetes: >=200 mg/d L plus symptoms Blood Urea Nitrogen 9 8 - 18 mg/dL CERNER MILLENNIUM Creatinine 0.62(L) 0.70 - 1.20 mg/dL CERNER MILLENNIUM Sodium 138 135 - 145 mmol/L CERNER MILLENNIUM Potassium 3.9 3.5 - 5.0 mmol/L CERNER MILLENNIUM Comment: Please note: ??Patients with WBC >100,000 may have falsely elevated Potassium levels. ??For accurate Potassium quantification in these patients send serum separator tube (gold top) for subsequent determinations. ??Contact the Clinical Chemistry Laboratory if there are any questions. Chloride 103 98 - 107 mmol/L CERNER MILLENNIUM Carbon Dioxide 25 22 - 31 mmol/L CERNER MILLENNIUM Anion Gap 10 5 - 15 mmol/L CERNER MILLENNIUM Calcium 9.4 8.5 - 10.5 mg/dL CERNER MILLENNIUM Est Glomerular Filtration Rate >60 >=60 CERNER MILLENNIUM Comment: The National Kidney Disease Education Program (NKDEP) has recommended all laboratories report estimated GFR (eGFR) along with plasma creatinine measurements to assist you with recognition of early kidney disease. Caveats: ??Plasma creatinine should be at steady-state (unchanged within the past week). For patients multiply eGFR by 1.2.MDRD equation has not been validated for pediatric patients and is only valid for patients with age >= 18 years. At present, NKDEP does NOT recommend using the MDRD equation for drug dosing purposes and pharmacists should continue to use their current dosing methods. In addition, numerical eGFR values greater than 60 ml/min/1.73 square meters should be treated as > 60, and not an exact number due to greater inaccuracies at these higher values. Per NKDEP, they classify normal renal function as any GFR >60ml/min/1.73 square meters; chronic kidney disease when GFR <60, and renal failure when GFR <15. ??This calculation may not be valid for patients with atypical muscle mass (very lean or obese), acute renal failure, and in patients with diabetic kidney disease. References: http://nkdep.nih.gov/resources/NKDEP_Suggestn4Labs_0606_508.pdf http://www.kidney.org/professionals/kls/pdf/faq_gfr.pdf Blood specimen (specimen) 11/20/2010 10:57 AM EDT 11/20/2010 12:12 PM EDT Stacy Paula MD CHEMISTRY ORDERAB LES Performing Organization Address [facility] de Phone Number SREEDHAR SUGGSENNIUM * T4, free (11/20/2010 10:57 AM EDT) Free T4 0.99 0.90 - 1.60 ng/dL CERNER MILLENNIUM Blood specimen (specimen) 11/20/2010 10:57 AM EDT 11/20/2010 12:12 PM EDT Stacy Paula MD CHEMISTRY ORDERAB LES Performing Organization Address [facility] de Phone Number CERGERALDINE SUGGSENNIUM * TSH (11/20/2010 10:57 AM EDT) Thyroid Stimulating Hormone 3.00 0.27 - 4.20 mcIU/mL CERNER MILLENNIUM Blood specimen (specimen) 11/20/2010 10:57 AM EDT 11/20/2010 12:12 PM EDT Stacy Paula MD CHEMISTRY ORDERAB LES Performing Organization Address [facility] Co de Phone Number SREEDHAR PATELIUM documented in this encounter Visit Diagnoses Diagnosis Annual physical exam- Primary Routine general medical examination at a health care facility H/O: hypothyroidism Personal history of other endocrine, metabolic, and immunity disorders Breast tenderness in female Mastodynia documented in this encounter Care Teams Linen Aide Relationship Specialty Start Date End Date Stacy Paula MD [facility] [address] PCP - General 03/31/10 11/01/16 documented as of this encounter
--- OUTSIDE RECORDS SUMMARY | 2023-12-20 02:05 | XMS_ITS | Encounter Summary ---
Author Organization [facility] [place] [address] Care Team Providers Care Equipment Operator Wage Hand Name Role Phone Stacy Adams MD Primary Care Provider [phone] Reason for Visit * Reason Onset Date Comments Results 08/21/2014 Encounter Details Date Type Department Care Team (Late st Contact Info) Description 08/21/2014 Telephone Internal Medicine at [address] [address] Ruby Robin Results Social History Tobacco Use Types Packs/Day Years [...] encounter Miscellaneous Notes * Telephone Encounter - Ashanti Valdovinos PA - 08/21/2014 4:58 PM EDT Spoke to pt. Reviewed negative CT results and normal labs. Pt to f/u PRN. * Telephone Encounter - Ruby Robin - 08/21/2014 4:50 PM EDT Pt call for lab results from today and to see if Ashanti SRINIVASAN wants to see her based on these results. Pt also states she had a CT scan and would like to go over these results as well, thank you pls call [phone] documented in this encounter Plan of Treatment Not on file documented as of this encounter Visit Diagnoses Not on filedocumented in this encounter Care Teams Equipment Operator Wage Hand Relationship Specialty Start Date End Date Stacy Adams MD [facility] [address] [place] [address] PCP - General 03/31/10 11/01/16 documented as of this encounter
--- OUTSIDE RECORDS SUMMARY | 2023-12-20 02:05 | XMS_ITS | Encounter Summary ---
Author Organization [facility] Address [facility] [place] [address] Care Team Providers Care Commercial Banker Name Role Phone Stacy Adams MD Primary Care Provider [phone] Reason for Visit * Reason Comments Skin Check Encounter Details Date Type Department Care Team (Late st Contact Info) Description 07/24/2013 3:00 PM EDT Office Visit Dermatology at [facility] [address] [place] [address] Enriqueta Garcia MD [facility] [place] [address] Capillaritis (Primary Dx); Pigmented purpura Discharge Disposition: Home Social History Tobacco Use Types Packs/Day Years Used Date Smoking Tobacco: Never Smokeless Tobacco: Never Alcohol Use Standard Drinks/Week Comments Not Asked 0 (1 standard drink = 0.6 oz pur e alcohol) Sex and Gender Information Value Date Recorded Sex Assigned at Not on file Gender Identity Not on file Sexual Orientation Not on file documented as of this encounter Patient Instructions * Patient Instructions* Brandon Baker LPN - 07/24/2013 4:08 PM EDT Capillaritis aka Pigmented Purpura This is a harmless skin condition in which there are reddish-brown patches caused by leaky capillaries.The capillaries are small blood vessels near to the skin surface. For unknown reasons they sometimes become inflamed. Blood cells may pass through small gaps that arise between the cells, which make up the capillary gonsales. The result is tiny red dots appear on the skin, described as cayenne pepper spots. They group together to form a flat red patch, which becomes brown and then slowly fades away over weeks to months. The cause of capillaritis is usually unknown. There is no known cure for most cases of capillaritis. It can disappear within a few weeks, recur from time to time, or frequently persist for years. Elevate your legs whenever possible and consider wearing graduated compression elastic hose. Consider weight loss as part of the management plan. Supplementation with Vitamin C and Rutoside documented in this encounter Progress Notes * Sherrie Weber MD - 08/17/2013 9:18 AM EDT I directly supervised Dr. Blake during this office visit. Dr. Blake presented the history and physical exam to me. I then saw and examined this patient with Dr. Blake. We reviewed the history and pertinent details and I confirmed the physical findings. I agree with the details of the history and physical exam as documented in Dr. Blake's note. SHERRIE WEBER MD Staff Physician * Enriqueta Garcia - 07/24/2013 3:20 PM EDT Images from the original note were not included. DERMATOLOGY - NEW PATIENT NOTE Date of service: 07/24/2013 Daphnie Villatoro : 1985 Dermatology Resident Note: Enriqueta Salomon MD Chief Complaint: rash ID: Ms. Daphnie Villatoro is a 28 y.o. female. This is a new patient to me. Seen in consultation at the request of Rosalie Pierce MD specifically for the evaluation and management of the above problem. HPI: Ms. Villatoro presents for evaluation of rash mainly on her legs but also buttocks and lower abdomen present since late May 2013. Rash is asymptomatic; patient denies associated pruritus, burning sensation, tenderness, pain, or bleeding. Patient initially thought rash was associated with her eczemahowever, given the lack of improvement, she saw her PCP, Dr. Pierce on July 09. Per review of the note she was noted to have non-blanching purpuric lesions scattered in multiple patches across bilateral legs extending up to hips and lower back. Some lesions with blanket folder pigmentation centrally with lichenification. Laboratory tests were ordered, including CBC, CMP, ESR and CRP all within normal limits. Additionally, a skin biopsy was performed: see biopsy results below. Treatments tried: Vitamin E, OTC Vaseline spray lotion, DermE, milk baths, tea baths, selena oil and milk, Aveeno oatmeal baths, OTC hydrocortisone cream Has a history of Hypothyroidism, now thyroid function tests WNL. Past Skin History: - 07/09/13 - skin, right hip, punch biopsy: Purpuric dermatitis (see comment) Comment: There is superficial perivascular lymphocytic inflammation with exocytosis, and abundant extravasated red blood cells in the dermis. 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 A purpuric drug eruption could also be in the differential diagnosis. PAS fungal stain is negative. - Eczema, mild Medical History: Patient Active Problem List Diagnosis Code ??? Obesity 278.00 Medications: Current Outpatient Prescriptions Medication Sig Dispense Refill ??? ascorbic acid (VITAMIN C) 100 mg tablet Take 100 mg by mouth daily. Allergies: No Known Allergies Family History: Mother and brother with acne Social History: Student at [employer] , no children Review of Systems: General: Feels well Skin: As per HPI; no other skin concerns Examination: Constitutional: Patient was alert, well-appearing and in no noticeable distress. Skin: An abbreviated skin exam was performed. This includes, legs, buttocks with patient verbal consent, lower abdomen and arms. Specific skin findings: 1. Multiple clusters of pinpoint cayenne pepper-like macules coalescing into irregularly-shaped patches scattered over bilateral legs, up to left hip, buttocks, and lower abdomen. (see pictures below) Verbal consent was given by patient to obtain and chart the following pictures: Diagnosis/Assessment/Treatment Plan: 1. 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 Discussed with patient that this is a harmless skin condition in which there are reddish-brown patches caused by leaky capillaries.The capillaries are small blood vessels near to the skin surface.For unknown reasons they sometimes become inflamed. Blood cells may pass through small gaps that arise between the cells, which make up the capillary gonsales. The result is tiny red dots that appear onthe skin, described as cayenne pepper spots. They group together to form a flat red patch, which becomes brown and then slowly fades away over weeks to months. ?? The cause of capillaritis is usually unknown. Occasionally it arises as a reaction to a medication, however patient is noted to not take any medications by mouth, apart from Vitamin C. ?? Discussed with patient that there is no known cure for most cases of capillaritis. It can disappear within a few weeks, recur from time to time, or sometimes persist for years. ?? Since there is no associated pruritus, topical corticosteroids are not indicated. ?? Recommend patient elevate her legs whenever possible and consider wearing graduated compression elastic hose. ?? Recommend patient consider weight loss as part of the management plan. ?? Pt can consider trying ruscus-containing supplements At least half of this 30 minute appointment were spent [id number] in counseling with this patient. We discussed pathophysiology, diagnosis, treatment, concerns, expectations and follow-up with regard to her diagnosis. I also addressed the patient's concerns and answered questions with regard to the above. Follow-up: RTC PRN. Instructed to call for questions or concerns. Note initiated by: BRANDON BAKER LPN: I am documenting this encounter acting as the scribe for and in the presence of Dr. Enriqueta Salomon MD Note reviewed, edited and signed by: Enriqueta Salomon MD Resident in Dermatology [facility] I performed the above scribed service and agree with the accuracy of the documentation in this encounter. Patient seen and evaluated with Staff Senior Courtroom Clerk: Sherrie Weber MD Section of Dermatology [facility] Level of Resident Supervision: Direct Supervision (The supervising physician is physically present with the resident and patient). A copy of this report has been sent to the referring provider Rosalie Pierce MD either by electronic messaging or by fax. documented in this encounter Plan of Treatment Not on file documented as of this encounter Visit Diagnoses Diagnosis Capillaritis- Primary Other and unspecified capillary diseases Pigmented purpura Other dyschromia documented in this encounter Care Teams Commercial Banker Relationship Specialty Start Date End Date Stacy Adams MD [facility] [address] [place] [address] PCP - General 03/31/10 11/01/16 documented as of this encounter
--- OUTSIDE RECORDS SUMMARY | 2023-12-20 02:05 | XMS_ITS | Encounter Summary ---
Author Organization [facility] Address [facility] [place] [address] Care Team Providers Care Check Out Clerk Name Role Phone Stacy Adams MD Primary Care Provider [phone] Reason for Visit * Reason Comments Leg Pain left leg, started 5p m last night, front and back of leg, fell on ice tuesday Encounter Details Date Type Department Care Team (Late st Contact Info) Description 04/26/2014 4:30 PM EST Office [place] [address] Cornelio Arrieta APRN [facility] [place] [address] Sciatica, left Discharge Disposition: Home Social History Tobacco Use [...] Sign Reading Time Taken Comments Blood Pressure 119/86 04/26/2014 4:41 PM EST Pulse 76 04/26/2014 4:41 PM EST Temperature - - Respiratory Rate - - Oxygen Saturation 100% 04/26/2014 4:41 PM EST Inhaled Oxygen Concentration - - Weight 85.5 kg (188 lb 9.6 oz) 04/26/2014 4:41 P M EST Height 155 cm (5' 1.02) 04/26/2014 4:41 PM EST Body Mass Index 35.61 04/26/2014 4:41 PM EST documented in this encounter Patient Instructions * Patient Instructions* Cornelio Arrieta, AUTOMOBILE DETAILER - 04/26/2014 4:54 PM EST Images from the original note were not included. [facility] Sciatica: After Your Visit Your Care Instructions Sciatica (say vze-RF-pb-kuh) is an irritation of one of the sciatic nerves, which come from the spinal cord in the lower back. The sciatic nerves and their branches extend down through the buttock to the foot. Sciatica can develop when an injured disc in the back presses against a spinal nerve root. Its main symptom is pain, numbness, or weakness that is often worse in the leg or foot than in the back. Sciatica often will improve and go away with time. Early treatment usually includes medicines and exercises to relieve pain. Follow-up care is a young part of your treatment and safety. Be sure to make and go to all appointments, and call your doctor if you are having problems. It???s also a good idea to know your test results and keep a list of the medicines you take. How can you care for yourself at home? ?? Take pain medicines exactly as directed. ?? If the doctor gave you a prescription medicine for pain, take it as prescribed. ?? If you are not taking a prescription pain medicine, ask your doctor if you can take an incb-gil-mbvofft medicine. ?? Put ice or a cold pack on the middle of your lower back for 10 to 20 minutes several times each day. Put a thin cloth between the ice and your skin. ?? After the first 2 or 3 days, use a warm pack or heating pad for 20 minutes at a time. Hot showers will also help. Hot baths may help as long as you can lie or sit in a position that does not stress your back. You may also keep using ice if it helps. ?? Avoid sitting if possible, unless it feels better than standing. ?? Alternate lying down with short walks. Increase your walking distance as you are able to withoutmaking your symptoms worse. ?? Do not do anything that makes your symptoms worse. When should you call for help? Call 911 anytime you think you may need emergency care. For example, call if: ?? You have sudden weakness or numbness in both legs. ?? You lose bowel or bladder control. ?? You suddenly cannot walk or stand. Call your doctor now or seek immediate medical care if: ?? You have weakness in your ankle or leg. ?? You have new pain, numbness, tingling, or weakness, especially in the buttocks, genital or rectal area, legs, or feet. ?? You have symptoms of a urinary infection. For example: ?? You have blood or pus in your urine. ?? You have pain in your back just below your rib cage. This is called flank pain. ?? You have a fever, chills, or body aches. ?? It hurts to urinate. ?? You have groin or belly pain. Watch closely for changes in your health, and be sure to contact your doctor if: ?? Your back pain gets worse or more frequent. ?? Your back pain is not getting better after 1 week of home treatment. It may take a lot longer for the pain to go away completely, but it should feel at least a little better. Where can you learn more? Visit our health information library at http://AlwaySupport/Hive guard unlimitedinfo You can also view health information on [employer], your personal patient account. Log in or sign up today. Enter Z239 in the search box to learn more about Sciatica: After Your Visit. ?? [id number] [employer]. Care instructions adapted under license by [facility]. This care instruction is for use with your licensed healthcare professional. If you have questions about a medical condition or this instruction, always ask your healthcare professional. [employer] disclaims any warranty or liability for your use of this information. Content Version: 9.9.357481; Last Revised: September 22, 2012 documented in this encounter Progress Notes * Cornelio Arrieta APRN - 04/26/2014 4:45 PM EST ESTABLISHED PATIENT VISIT I. HISTORY a. Reason(s) for Visit: Daphnie Musty 29 y.o. female asked to be seen for: Chief Complaint Patient presents with ??? Leg Pain left leg, started 5pm last night, front and back of leg, fell on ice tuesday b. History of Present Illness: Left leg pain Subtle onset at 5 pm yesterday Lasted a while then went away for an hour Comfortable again earlier in the day Moves and travels from foot to the hip Doesn't seem to go up or down, just a shooting burning pain with flares in the amount of pain. Fell at work on Tuesday in parking lot - no back pain, not a hard fall, fell on ice - landed on right side No swelling, redness, erythema Patient Active Problem List Diagnosis Code ??? Obesity 278.00 No Known Allergies Current Outpatient Prescriptions on File Prior to Visit Medication Sig Dispense Refill ??? ascorbic acid (VITAMIN C) 100 mg tablet Take 100 mg by mouth daily. No current facility-administered medications on file prior to visit. c. Review of Systems: Constitutional - No fevers, no chills, no weight loss or gain, no fatigue Musculoskeletal - No weakness, + pain at rest or with movement II. PHYSICAL EXAM Filed Vitals: 04/26/14 1641 BP: 119/86 Pulse: 76 Height: 155 cm (5' 1.02) Weight: 85.548 kg (188 lb 9.6 oz) SpO2: 100% General - No acute distress, conversing without difficulty. Does not appear to be in pain. M/S - No spinal tenderness, full AROM, 5/5 MS. + pain with straight leg raise and with cross over leg raise. Neuro - Gait w/ normal stride, speed and arm swing. Extremities - No clubbing, cyanosis or edema. III. ASSESSMENT/PLAN: 29-year old female with likely sciatica Discussed with her the normal course of sciatica and low back pain. We will start with conservativetreatment on her own and if she has ongoing pain refer to PT. If pain changes or become worse she should return to the clinic. documented in this encounter Plan of Treatment Not on file documented as of this encounter Visit Diagnoses Diagnosis Sciatica, left documented in this encounter Care Teams Check Out Clerk Relationship Specialty Start Date End Date Stacy Adams MD [facility] [place] [address] [place] [address] PCP - General 03/31/10 11/01/16 documented as of this encounter
--- OUTSIDE RECORDS SUMMARY | 2023-12-20 02:05 | XMS_ITS | Encounter Summary ---
Author Organization [facility] [place] [address] Care Team Providers Care Postal Clerk Name Role Phone Stacy Adams MD Primary Care Provider [phone] Reason for Visit * Reason Onset Date Comments Health Screening 08/20/2014 Encounter Details Date Type Department Care Team (Late st Contact Info) Description 08/20/2014 Telephone Internal Medicine at [address] [address] Cecilia Zhao Health Screening Social History Tobacco Use Types Packs/Day Years [...] encounter Miscellaneous Notes * Telephone Encounter - Cecilia Henry - 08/20/2014 8:41 AM EDT If a patient is feeling ill, ask the following questions: 1. Do you currently have a cough? Answer: yes 2. Do you feel like you have a fever? Answer: yes If no to both, patient may schedule a regular appointment. Schedule as appropriate. If yes to either, ask: 3. Have you or other household family members travelled internationally in the past month? Answer: Yes-[place] If no, instruct patient to wear a mask when they arrive. These can be found at the entrance to all clinics and the hospital. They may be scheduled as usual and may wait in the waiting room for their appointment. If yes, ask if travel included any of these countries: [place] Alysha Alfred Answer: no If no, instruct patient to wear a mask when they arrive. These can be found at the entrance to all clinics and the hospital. They may be scheduled as usual and may wait in the waiting room for their appointment. If yes: Instruct the patient to proceed to the ED. Contact [facility] Infection Prevention ([facility]) at pager [phone]. Notify the [facility] at [phone]. documented in this encounter Plan of Treatment Not on file documented as of this encounter Visit Diagnoses Not on filedocumented in this encounter Care Teams Postal Clerk Relationship Specialty Start Date End Date Stacy Adams MD [facility] [address] [facility] [place] [address] PCP - General 03/31/10 11/01/16 documented as of this encounter
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
--- OUTSIDE RECORDS SUMMARY | 2023-12-20 02:05 | XMS_ITS | Encounter Summary ---
Author Organization [facility] Address [facility] [place] [address] Care Team Providers Care Applied Behavior Specialist Name Role Phone Stacy Adams MD Primary Care Provider [phone] Reason for Referral * Consultation (Routine) - Complete - Patient Seen (External Appt Consult Notes Rcv'd) Specialty Diagnoses / Procedures Referred By Joy eagle Referred To Contact Dermatology Diagnoses Calista's purpRosalie Balbuena MD [facility] [place] [address] [facility] Dermatology [address] [place] [address] Referral ID Status Reason Start Date Expiration Date Visits Requested Visits Authorized [id number] Complete - Patient Seen (External Appt Consult Notes Rcv'd) Consult, Test & Treat 07/17/2013 01/13/2014 1 1 Encounter Details Date Type Department Care Team (Late st Contact Info) Description 07/17/2013 Orders Only Internal Medicine at [address] [address] Day Hernandez, RN Calista's valerio (Primary Dx) Social History Tobacco Use Types [...] Priority Associated Diagnoses Order Schedule Referral to Dermatology Outpatient Referral Routine Schamberg's purpura Ordered: 07/17/2013 documented as of this encounter Visit Diagnoses Diagnosis Schamberg's purpura- Primary Other dyschromia documented in this encounter Care Teams Applied Behavior Specialist Relationship Specialty Start Date End Date Stacy Adams MD [facility] [address] [facility] [place] [address] PCP - General 03/31/10 11/01/16 documented as of this encounter
--- OUTSIDE RECORDS SUMMARY | 2023-12-20 02:05 | XMS_ITS | Encounter Summary ---
Author Organization [facility] [place] [address] Care Team Providers Care Knitting Machine Operator Helper Name Role Phone Stacy Adams MD Primary Care Provider [phone] Reason for Visit * Reason Comments Suture / Staple Removal Encounter Details Date Type Department Care Team (Latest Contact Info) Description 07/16/2013 3:00 PM EDT Clinical Support Internal Medicine at [address] [address] CL[address], DR QUIROZ Visit for suture removal (Primary Dx) Discharge Disposition: Home Social History [...] as of this encounter Progress Notes * Day Hernandez RN - 07/17/2013 3:29 PM EDT One suture removed in the biopsy site of the Rt. Leg. No S/S of infection and healed well. Cont. Tohave a lot of questions re: diagnosis and would like to see a business analyst consultant. An appointment made for the . Patient aware. documented in this encounter Miscellaneous Notes * Miscellaneous - Provider, Kenny - 07/16/2013 4:37 PM EDT documented in this encounter Plan of Treatment Not on file documented as of this encounter Visit Diagnoses Diagnosis Visit for suture removal- Primary Encounter for removal of sutures documented in this encounter Care Teams Knitting Machine Operator Helper Relationship Specialty Start Date End Date Stacy Adams MD [facility] [place] [address] PCP - General 03/31/10 11/01/16 documented as of this encounter
--- OUTSIDE RECORDS SUMMARY | 2023-12-20 02:05 | XMS_ITS | Encounter Summary ---
Author Organization [facility] [place] [address] Care Team Providers Care Pediatric Sports Medicine Specialist Name Role Phone Alfa Harry MD Primary Care Provider Reason for Visit * Reason Onset Date Comments Triage 05/01/2020 Encounter Details Date Type Department Care Team (Late st Contact Info) Description 05/01/2020 Telephone [place] [address] Cristina Garcia Triage Social History Tobacco Use Types Packs/Day Years [...] encounter Miscellaneous Notes * Telephone Encounter - Mariia Lora - 05/01/2020 11:26 AM EST Pt called stating she has canceled her appt for today at [place] because she was already seen at the ED at [facility]. Please call pt back with any questions. * Telephone Encounter - Cristina Garcia - 05/01/2020 9:35 AM EST Message: Daphnie is currently at [facility] to get x-rays done due to a fall. She has had pain that keeps on changing. She had spotting yesterday that has since stopped. Daphnie states that she was supposed to have a UA done as well. Please send in orders to [facility] for this to be done. Ask caller their first and last name and relationship to the patient: Daphnie Villatoro (Service at [facility] is very spotty.) Best time to call back: as soon as possible Ok to leave a message: y Ok to send my- message: n Offered Appointment: n MA/Nurse/[place] contacted via: Message: y Call: y Pager: n Patient is upset with this whole situation. It took forever to get the xray orders signed and now she at [facility] and doesn't want to become an ED patient but she will if she has to. documented in this encounter Plan of Treatment Not on file documented as of this encounter Visit Diagnoses Diagnosis Urinary incontinence, unspecified type documented in this encounter Care Teams Pediatric Sports Medicine Specialist Relationship Specialty Start Date End Date Alfa Harry MD [facility] GENER[facility] [place] [address] PCP - General General Internal Medicine 05/31/192 09/27 documented as of this encounter
--- OUTSIDE RECORDS SUMMARY | 2023-12-20 02:05 | XMS_ITS | Encounter Summary ---
Author Organization [facility] Address [facility] [place] [address] Care Team Providers Care Core Inserter Name Role Phone Stacy Adams MD Primary Care Provider [phone] Encounter Details Date Type Department Care Team (Latest Contact Info) Description 08/21/2014 12:54 PM EDT - 08/21/2014 11:59 PM EDT Hospital [place] [address] Abdominal pain, unspecified abdominal location Social History Tobacco Use Types Packs/Day Years [...] Sig Dispensed Refills Start Date End Date ascorbic acid, vitamin C, (VITAMIN C) 100 mg Tablet Take 100 mg by mouth daily. norgestimate-ethinyl estradiol 0.18/0.215/0.25 mg-35 mcg (28) TabletIndications:Family planning advice Take 1 tablet by mouth daily. 84 tablet 3 08/21/2014 09/04/2014 albuterol (PROVENTIL HFA;VENTOLIN HFA;PROAIR) 90 mcg/actuation HFA Aerosol InhalerIndications:Acute URI Inhale 2 puffs into the lungs every 4 hours as needed for Wheezing. Use with spacer 1 Inhaler 3 08/21/2014 07/30/2015 documented as of this encounter Plan of Treatment Not on file documented as of this encounter Procedures Procedure Name Priority Date/Time Associated Diagnosis Comments CT ABDOMEN AND PELVIS W CONTRAST STAT 08/21/2014 3:58 PM EDT Abdominal pain, unspecified abdominal location [...] and interpretation reviewed by the attending Stacy Adams MD IMG CT ORDERABLES documented in this encounter Visit Diagnoses Diagnosis Abdominal pain, unspecified abdominal location documented in this encounter Administered Medications Inactive Administered Medications - up to 3 most recent administrations Medication Order MAR Action Action Date Dose Rate Site iohexol (OMNIPAQUE) 350 mg/mL solution 17,500 mg 17,500 mg (50 mL), Oral, ONCE PRN, 1 dose, Starting on Tue08/21/14 at 1548, Until Tue08/21/14 at 1400, Per Protocol, Routine Given 08/21/2014 2:00 PM EDT 17,500 mg iohexol (OMNIPAQUE) 350 mg/mL solution 38,500 mg 38,500 mg (110 mL), Intravenous, ONCE PRN, 1 dose, Starting on Tue08/21/14 at 1548, Until Tue08/21/14 at 1555, Per Protocol, Routine Given 08/21/2014 3:55 PM EDT 38,500 mg documented in this encounter Care Teams Core Inserter Relationship Specialty Start Date End Date Stacy Adams MD [facility] GENERAL [place] [address] PCP - General 03/31/10 11/01/16 documented as of this encounter
--- OUTSIDE RECORDS SUMMARY | 2023-12-20 02:05 | XMS_ITS | Encounter Summary ---
Author Organization [facility] Address [facility] [place] [address] Care Team Providers Care Online Education Manager Name Role Phone Alfa Harry MD Primary Care Provider [phone] Encounter Details Date Type Department Care Team (Latest Contact Info) Description 03/03/2021 10:15 AM EDT - 03/03/2021 11:59 PM EDT Hospital [place] [address] Alaina Smalls, [facility] [place] [address] Abnormal uterine bleeding Discharge Disposition: Home Social History Tobacco Use [...] Procedure Name Priority Date/Time Associated Diagnosis Comments US TRANSVAGINAL NON OB Routine 03/03/2021 10:56 AM EDT Abnormal uterine bleeding documented in this encounter [...] who have questions, please contact the health manager primary care that requested your imaging first. ? Viraj Davis, Staff Physician Electronically Signed Final Report ?? 03/03/2021 11:16 am Narrative 03/03/2021 11:16 AM EDT Gynecological Report ?(Signed Final 03/03/2021 11:16 am) PATIENT INFO: ID #: ? [id number] ?: ??[birth year] (36 yrs)(F) Name: ? BENJA VILLATORO ? Visit Date: 03/03/2021 10:23 am PERFORMED BY: Performed By: ? Mariia Patrick RDMS Attending: ?Ryan BARNETT, Viraj Raphael Referred By: ?ALAINA SMALLS Location: ? [employer] SERVICE(S) PROVIDED: UTV - Transvaginal - [id number] ?[id number] U3D - ??3D rendering with interpretation - [id number] ? [id number] UPELIM - Pelvis Limited - [id number] ? [id number] INDICATIONS: New onset AUB with Kyleena IUD [...] 03/03/2021 11:16 am) PATIENT INFO: ID #: [id number] : [id number] (36 yrs)(F) Name: BENJA VILLATORO Visit Date: 03/03/2021 10:23 am PERFORMED BY: Performed By: Mariia Patrick RDMS Attending: Viraj Davis MD Referred By: ALAINA SMALLS Location: [employer] SERVICE(S) PROVIDED: UTV - Transvaginal - [id number] U3D - 3D rendering with interpretation - [id number] UPELIM - Pelvis Limited - [id number] INDICATIONS: New onset AUB with Kyleena IUD [...] who have questions, please contact the health manager primary care that requested your imaging first. Viraj Davis, Staff Physician Electronically Signed Final Report 03/03/2021 11:16 am Alaina Smalls APRN IMG US PELVI C ORDERABLES documented in this encounter Visit Diagnoses Diagnosis Abnormal uterine bleeding Unspecified disorder of menstruation and other abnormal bleeding from female genital tract documented in this encounter Care Teams Online Education Manager Relationship Specialty Start Date End Date Alfa Harry MD [facility] GENER[facility] [place] [address] PCP - General General Internal Medicine 05/31/19 6/2 09/27 documented as of this encounter
--- OUTSIDE RECORDS SUMMARY | 2023-12-20 02:05 | XMS_ITS | Encounter Summary ---
Author Organization [facility] [place] [address] Care Team Providers Care Forest Economics Professor Name Role Phone Stacy Adams MD Primary Care Provider [phone] Reason for Visit * Reason Onset Date Comments Results 07/10/2013 Encounter Details Date Type Department Care Team (Late st Contact Info) Description 07/10/2013 Telephone Internal Medicine at [address] [address] Stacy Adams MD [facility] [place] [address] Results Social History Tobacco Use Types Packs/Day [...] Telephone Encounter - Stacy Grossman RN - 07/10/2013 9:35 AM EST Message left on identifiable voicemail to inform patient that labs done yesterday were normal. * Telephone Encounter - Iqra Deras - 07/10/2013 8:09 AM EST Pt calling for lab results done yesterday documented in this encounter Plan of Treatment Not on file documented as of this encounter Visit Diagnoses Not on filedocumented in this encounter Care Teams Forest Economics Professor Relationship Specialty Start Date End Date Stacy Adams MD [facility] [address] [address] PCP - General 03/31/10 11/01/16 documented as of this encounter
--- OUTSIDE RECORDS SUMMARY | 2023-12-20 02:05 | XMS_ITS | Encounter Summary ---
Author Organization [facility] Address [facility] [place] [address] Care Team Providers Care Wrap Checker Name Role Phone Alfa Harry MD Primary Care Provider [phone] Encounter Details Date Type Department Care Team (Latest Contact Info) Description 04/07/2020 10:16 PM EST - 04/07/2020 11:59 PM EST Hospital [place] [id number] Discharge Disposition: Home Social History Tobacco Use [...] Tablet Take 100 mg by mouth daily. levonorgestreL (Kyleena) 17.5 mcg/24 [...] Procedure Name Priority Date/Time Associated Diagnosis Comments COVID-19 PCR Routine 04/07/2020 12:27 PM EST documented in this encounter Results * (ABNORMAL) COVID-19 PCR (04/07/2020 12:27 PM EST) SARS-CoV-2 RNA Detected (A) Not Detected [facility] Comment: This result should be interpreted in combination with the clinical observations, patient history and epidemiological information in making a final diagnosis. For testing of asymptomatic individuals, assay performance characteristics and clinical utility have not been evaluated. Testing for SARS-CoV-2 (Severe acute respiratory syndrome coronavirus 2, formerly known as 2019 novel coronavirus or 2019-nCoV) to aid in the diagnosis of COVID-19 is performed using the [employer] HR m SARS-CoV-2 Assay as authorized by the FDA Emergency Use Authorization (EUA). This EUA assay is intended for In-vitro Diagnostic (IVD) use with respiratory specimens such as nasopharyngeal swabs collected from individuals during the acute phase of infection. This assay is performed based on the instructions for use provided by [employer] and additional guidance provided by CDC and FDA. Testing is performed in the [facility] within the Department of Pathology and Laboratory Medicine at [facility], certified under the Clinical Laboratory Improvement Amendments of 1988 (CLIA), 42 U.S.C. 263a, to perform high complexity tests. Assay performance has been verified according to clinical laboratory regulatory requirements for use with specimens collected from individuals suspected of COVID-19. Test results are provided above. A result of ? Not Detected? indicates that the viral RNA target is not present above the limit of detection, but does not preclude SARS-CoV-2 infection. False negative results may occur if a specimen is improperly collected, transported or handled; if amplification inhibitors are present; or if inadequate numbers of viral particles are present in the specimen. When a diagnostic test is negative, the possibility of a false negative result should be considered in the context of a patient? s recent exposures and the presence of clinical signs and symptoms consistent with COVID-19. A result of ? Detected? indicates that RNA from SARS-CoV-2 was detected and the patient is infected. As required or requested by public health authorities, positive specimens may be sent for additional testing. Positive and negative predictive values for this test are highly dependent on disease prevalence. A result of ? Invalid? indicates that neither the viral RNA targets nor the internal control target was detected. An invalid result suggests the presence of inhibitors. Recollection and re-testing is recommended in the case of an invalid result. CDC COVID-19 criteria for testing on human specimens and clinical management guidance information are available at the CDC Coronavirus Disease 2019 (COVID-19) webpage under ? Information for Healthcare Professionals? (https://www.cdc.gov/coronavirus/2019-ncov/hcp/index.html) Additional information about this and other EUA tests can be found in provider and patient fact sheets at the following FDA website: https://www.fda.gov/medical-devices/tjdeiztzfpz-iipexvu-1123-gyejk-48-yghmjdlth- use-a swehhdzeirehm-xpsjwxg-tlcidyu/okxxk-evfaotmkbcy-eucx SARS-CoV-2 RNA Source DIGITAL STRATEGIST SENIOR MANAGER Swab [facility] Nasopharyngeal swab (specimen) Other / Unknown 04/07/2020 12:27 PM EST 04/07/2020 10:49 PM EST Narrative Resulting Agency Comment Spec In Lab Felice MORA Performing Organization Address City/State/[facility] Co de Phone Number [facility] [place] [address] documented in this encounter Visit Diagnoses Not on filedocumented in this encounter Care Teams Wrap Checker Relationship Specialty Start Date End Date Alfa Harry MD [facility] [place] [address] PCP - General General Internal Medicine 05/31/19 6/2 09/27 documented as of this encounter
--- OUTSIDE RECORDS SUMMARY | 2023-12-20 02:05 | XMS_ITS | Encounter Summary ---
Author Organization [facility] Address [facility] [place] [address] Care Team Providers Care Admission Nurse Coordinator Name Role Phone Stacy Adams MD Primary Care Provider [phone] Encounter Details Date Type Department Care Team (Late st Contact Info) Description 09/10/2014 Telephone Internal Medicine at [address] [address] Cecilia Zhao Social History Tobacco Use Types Packs/Day Years [...] Telephone Encounter - Stacy Grossman RN - 09/11/2014 12:18 PM EDT Per Alva, patient informed that she can try Zantac twice daily before meals. She prefers to buy OTC. Encouraged to try for at least 2 weeks and to call back if no relief. * Telephone Encounter - Stacy Grossman RN - 09/11/2014 8:34 AM EDT Patient called, still feeling stomach pains especially after eating, mostly in stomach area above her navel, and she notices gurgling after eating. No more diarrhea or nausea, no c/o bloating. She is not taking anything OTC for these sx. Sx are not as severe as when she saw Alva Valdovinos but she wanted her to know. TC to pharmacy to clarify refills of BCP and inhaler. Note forwarded to Alva Valdovinos. * Telephone Encounter - Cecilia Henry - 09/10/2014 4:40 PM EDT Message: patient needs her refill of her ortho tricyclean low states it has been sent to the pharmacy three times with the wrong dose. Patient states she also is still continuing symptoms of flu abdominal pain and anxiety Caller (if other than patient-full name): patient Relationship (if other than patient): documented in this encounter Plan of Treatment Not on file documented as of this encounter Visit Diagnoses Not on filedocumented in this encounter Care Teams Admission Nurse Coordinator Relationship Specialty Start Date End Date Stacy Adams MD [facility] [place] [address] PCP - General 03/31/10 11/01/16 documented as of this encounter
--- OUTSIDE RECORDS SUMMARY | 2023-12-20 02:05 | XMS_ITS | Encounter Summary ---
Author Organization [facility] [place] [address] Care Team Providers Care Staffing Program Manager Name Role Phone Stacy Adams MD Primary Care Provider [phone] Reason for Visit * Reason Onset Date Comments Medication Problem 09/04/2014 Encounter Details Date Type Department Care Team (Late st Contact Info) Description 09/04/2014 Refill Internal Medicine at [address] [id number] Amber Eric Social History Tobacco Use Types Packs/Day Years [...] encounter Miscellaneous Notes * Telephone Encounter - Amber Branch - 09/04/2014 8:36 AM EDT Patient called stating that she went to the pharmacy to cigar packer and picker her BC and it was filled wrong. Sheneeds the Ortho Tricyclen Low and her prescription she picked up was the regular Ortho Tricyclen, Please rewrite and fax to the [facility] in [place]. Thank you. documented in this encounter Plan of Treatment Not on file documented as of this encounter Visit Diagnoses Not on filedocumented in this encounter Care Teams Staffing Program Manager Relationship Specialty Start Date End Date Stacy Adams MD [facility] [place] [address] PCP - General 03/31/10 11/01/16 documented as of this encounter
--- OUTSIDE RECORDS SUMMARY | 2023-12-20 02:05 | XMS_ITS | Encounter Summary ---
Author Organization [facility] [place] [address] Care Team Providers Care Lighting Equipment Operator Name Role Phone Alfa Harry MD Primary Care Provider [phone] Reason for Visit * Reason Onset Date Comments Triage 04/30/2020 Encounter Details Date Type Department Care Team (Late st Contact Info) Description 04/30/2020 Telephone [place] [address] Catina Lantigua Triage Social History Tobacco Use Types Packs/Day [...] encounter Miscellaneous Notes * Telephone Encounter - Rachel Ivey - 04/30/2020 2:18 PM EST Daphnie is calling the office back looking for the orders to be sent. Daphnie states she is at [facility] and was told it looked like we are just waiting for the orders to be approved. Please contact [facility] with any further questions. * Telephone Encounter - Milena Astudillo RN - 04/30/2020 1:53 PM EST HOT LINE Patient called on cell from outside [facility], call was dropped when call center tried to transfer over. Attempted to call patient back, no answer ,left detailed message on identified voice mail, asking for call back to relay where exactly pain was located so Mackenzie could order appropriate xrays Then called main line for [facility] to see if they could find patient standing out front, they were unable to locate patient * Telephone Encounter - Catina Lantigua - 04/30/2020 1:38 PM EST Day from [facility] called. She asked when the orders are signed/approved by the provider to please fax those to [phone] * Telephone Encounter - Stacy Ingram RN - 04/30/2020 9:50 AM EST Tuesday morning fell down the stairs to her basement. Daphnie was wearing boots and slipped, also carrying school binders. She feels that she fell down at least half of the staircase and landed on the pile of binders on a cement floor, The binders were destroyed. Reports her L side ribs, arms and shoulder were worst, but she hit everything on her L side and is now covered in bruises. When she stood up to go upstairs she realized she was wet and that she had inadvertantly voided her bladder, andshe said I didn't even have to go. Daphnie reports that on Tuesday she spotted a little, but her IUD placement seems to be OK and she has had no further spotting. She is not having any bladder problems or discomfort either. She is using her sweater to immobilize her L shoulder as it makes it comfortable. Appt made for tomorrow with Tristin Middleton. * Telephone Encounter - Catina Lantigua - 04/30/2020 9:01 AM EST Message: Daphnie called stating she fell down the stairs on Tuesday, and has a lot of bruising. She stated she is experiencing shoulder pain, and is unsure if she needs to be seen or what to do. She stated she started a new job & currently does not have insurance. She stated yesterday her shoulder was comfortable because she had it sitting in her tack puller machine sweater instead of hanging. She is wondering if a sling is all she needs. Please contact back to discuss further. Ask caller their first and last name and relationship to the patient: Patient Phone: Best time to call back: Any Ok to leave a message: Yes Ok to send my- message: no Offered Appointment: n MA/Nurse/Wireless Operator contacted via: Message: y Call: y Pager: n documented in this encounter Plan of Treatment Not on file documented as of this encounter Visit Diagnoses Diagnosis History of falling Personal history of fall documented in this encounter Care Teams Lighting Equipment Operator Relationship Specialty Start Date End Date Alfa Harry MD [facility] [place] [address] PCP - General General Internal Medicine 05/31/19 6/2 09/27 documented as of this encounter
--- OUTSIDE RECORDS SUMMARY | 2023-12-20 02:05 | XMS_ITS | Encounter Summary ---
[place] [address] Care Team Providers Care Baggage Agent Name Role Phone Alfa Harry MD Primary Care Provider Reason for Visit * Reason Onset Date Comments Pharmacy Call 06/06/2019 Encounter Details Date Type Department Care Team (Late st Contact Info) Description 06/06/2019 Telephone [place] [phone] Kathy Jackson Pharmacy Call Social History Tobacco Use Types Packs/Day Years [...] Miscellaneous Notes * Telephone Encounter - Milena Astudillo RN - 06/06/2019 2:47 PM EST Phoned pharmacy back, name brand ordered has been on a nationwide back order, another brand name option is tri lo sprintec, or if it is ok, the pharmacy has plenty of the generic version of the medication requested * Telephone Encounter - Kathy Jackson - 06/06/2019 2:40 PM EST Pharmacy or caller: [facility] 2 opt 0 Medication: norgestimate-ethinyl estradiol (ORTHO TRI-CYCLEN LO) 0.18/0.215/0.25 mg-25 mcg Tablet Message: The pharmacy states this medication has been on back order for a long time now. There are a lot of options please call pharmacy about which ones please. * Telephone Encounter - Kathy Jackson - 06/06/2019 8:38 AM EST Pharmacy or caller: [facility] Medication: norgestimate-ethinly estradiol Message: The script is for a generic and it is unclear which brand name medication is being requested. Either call with an update or just send in new script for specific brand please. documented in this encounter Plan of Treatment Not on file documented as of this encounter Visit Diagnoses Diagnosis Encounter for female control Other specified contraceptive management documented in this encounter Care Teams Baggage Agent Relationship Specialty Start Date End Date Alfa Harry MD [facility] [place] [address] PCP - General General Internal Medicine 05/31/19 6/2 09/27 documented as of this encounter
--- OUTSIDE RECORDS SUMMARY | 2023-12-20 02:05 | XMS_ITS | Encounter Summary ---
Author Organization [facility] [address] Care Team Providers Care Tool And Die Machinist Name Role Phone Stacy Adams MD Primary Care Provider [phone] Reason for Visit * Reason Onset Date Comments Triage 04/26/2014 Encounter Details Date Type Department Care Team (Late st Contact Info) Description 04/26/2014 Telephone Internal Medicine at [address] [address] Urszula Ureña Triage Social History Tobacco Use Types Packs/Day [...] encounter Miscellaneous Notes * Telephone Encounter - Day Hernandez RN - 04/26/2014 3:04 PM EST TC to the patient: started yesterday with pain in the Left leg from the hip to her foot. C/O numb feeling with sharp pain on and off throughout the past two days excruciating at times. Denies weakness, redness, bruising, swelling. No apparent injury. Patient is flying on Sun. And concerned about blood clots and pain management. Will be seen at [facility] today. documented in this encounter Plan of Treatment Not on file documented as of this encounter Visit Diagnoses Not on filedocumented in this encounter Care Teams Tool And Die Machinist Relationship Specialty Start Date End Date Stacy Adams MD [facility] [address] PCP - General 03/31/10 11/01/16 documented as of this encounter
--- OUTSIDE RECORDS SUMMARY | 2023-12-20 02:05 | XMS_ITS | Encounter Summary ---
[place] [address] Care Team Providers Care Maintenance Painter Name Role Phone Alfa Harry MD Primary Care Provider [phone] Reason for Visit * Reason Onset Date Comments Medication Problem 06/06/2019 Encounter Details Date Type Department Care Team (Late st Contact Info) Description 06/06/2019 Telephone [place] [address] Shayna Mccann Medication Problem Social History Tobacco Use Types [...] Encounter - Milena Astudillo RN - 06/06/2019 4:03 PM EST Phoned pharmacy back, confirmed generic was ok * Telephone Encounter - Shayna Mccann - 06/06/2019 3:52 PM EST Pharmacy or caller: [facility] in [place], [place] Medication: norgestimate-ethinyl estradiol (ORTHO TRI-CYCLEN LO) 0.18/0.215/0.25 mg-25 mcg Tablet [facility]. It looks like the same script was sent to them as before. They are looking for the Generic Brand. Please call [facility] back to further discuss documented in this encounter Plan of Treatment Not on file documented as of this encounter Visit Diagnoses Not on filedocumented in this encounter Care Teams Maintenance Painter Relationship Specialty Start Date End Date Alfa Harry MD [facility] [place] [address] PCP - General General Internal Medicine 05/31/19 6/2 09/27 documented as of this encounter
--- OUTSIDE RECORDS SUMMARY | 2023-12-20 02:05 | XMS_ITS | Encounter Summary ---
Author Organization [facility] Address [facility] [place] [address] Care Team Providers Care Household Assistant Name Role Phone Alfa Harry MD Primary Care Provider [phone] Reason for Visit * Reason Comments Establish Care Contraception * Consultation (Routine) - Closed Specialty Diagnoses / Procedures Referred By Contdariusz t Referred To Contact Obstetrics and Gynecology Diagnoses Encounter for female control Alfa Harry MD [facility] [address] GENERAL [place] [address] [facility] [address] [place] [address] Referral ID Status Reason Start Date Expiration Date V isits Requested Visits Authorized [id number] Closed Specialty Service Requested 06/05/2019 06/04/2020 1 1 Encounter Details Date Type Department Care Team (Late st Contact Info) Description 06/07/2019 3:00 PM EST Office Visit Obstetrics [place] [address] Amy Quinn APRN [address] OBSTET[place] [address] General counseling for initiation of other contraceptive measures; Encounter for insertion of intrauterine contraceptive device; Encounter for screening for malignant neoplasm of cervix; Encounter for screening for human papillomavirus (HPV); Intrauterine device surveillance Social History Tobacco Use Types Packs/Day Years [...] Sign Reading Time Taken Comments Blood Pressure 126/93 06/07/2019 3:09 PM EST Pulse 70 06/07/2019 3:09 PM EST Temperature 36.7 ??C (98.1 ??F) 06/07/2019 3:09 PM ES T Respiratory Rate - - Oxygen Saturation 100% 06/07/2019 3:09 PM EST Inhaled Oxygen Concentration - - Weight 86 kg (189 lb 9.6 oz) 06/07/2019 3:09 PM EST Height - - Body Mass Index 35.84 06/05/2019 2:50 PM EST documented in this encounter Progress Notes * Amy Schneider, ANALYSIS ENGINEER - 06/07/2019 3:00 PM EST REASON FOR VISIT: IUD consult and insertion Subjective: Daphnie Villatoro is a 34 y.o. female who is here for consultation and insertion of a progestin IUD. Daphnie has started a new relationship in last few months. She is currently using condoms only for contraception. Patient's last menstrual period was 05/16/2019 (exact date). Has used pills in the past for control stopped 3 months ago when stopped having sexual contact with previous partner. Had been using pills for years, but has concerns with pills causing weight fluctuations as well as headaches. LMP - May 17 2019, regular cycle, denies any unprotected intercourse since LMP, condoms used with encounters. Her last GC/CT was done a few years back, OK with screening today. Denies any sx of STI or known exposures. No abnormal pap hx, last pap ~ 5 years ago. Mirena, kyleena, Angelic and Paragard IUDs reviewed, including efficacy, method of insertion, risks including but not limited to infection and uterine perforation, benefits, and side effects. She is aware of these risks and has no questions. Daphnie reviewed and signed the IUD insertion consent form, wants to proceed with Kyleena IUD. Patient Active Problem List Diagnosis Date Noted ??? Obesity 05/26/2009 No past medical history on file. No past surgical history on file. Outpatient Medications Marked as Taking for the 06/07/19 encounter (Office Visit) with Amy Schneider APRN Medication Sig Dispense Refill ??? albuterol (PROVENTIL HFA;VENTOLIN HFA;PROAIR) 90 mcg/actuation HFA Aerosol Inhaler Inhale 2 puffs into the lungs every 4 hours as needed for Wheezing. Use with spacer 3 Inhaler 0 ??? ascorbic acid (VITAMIN C) 100 mg tablet Take 100 mg by mouth daily. No Known Allergies Objective: BP (!) 126/93 (BP Location (NBP): Left arm, Patient Position: Sitting) Pulse 70 Temp 36.7 ??C (98.1 ??F) (Temporal) Wt 86 kg (189 lb 9.6 oz) LMP 05/16/2019 (Exact Date) SpO2 100% BMI 35.84 kg/m?? Urine screen negative. General: Appears healthy and well nourished. No apparent distress. Procedure: Prior to the start of this procedure, I confirmed the patient's identity, intended procedure and availability of equipment needed. Pelvic: Uterus A/V, normal size and contour. Speculum placed, cervix swabbed with iodine. Tenaculumapplied. Using sterile technique, the uterus was sounded to 8 cm. A Kyleena IUD was inserted without difficulty. String trimmed to approx 3 cm. Pt tolerated the procedure well. Lot # [id number], Exp date: 08/2020 Assessment/Plan: Appropriate IUD candidate Successfully inserted a Kyleena IUD. IUD to be removed no later than May 2024. Discussed that actual efficacy is known for 7 years and that [employer] is currently working on FDA approval to extend MirenaIUD for 8 years. Reviewed warning s/sx and encouraged Daphnie to call with any other concerns. Aware she can take Ibuprofen 800mg Q8 hrs PRN for discomfort. Reviewed monthly string checks. Use back-up method x 1 week. Daphnie encouraged to return to the clinic for a string check in 4-6 weeks. #Pap screening today, results in 10 days, myD message to be sent with results. If NILM - HPV, due in 5 years. #STI screening. GC/CT sent with pap. Await results. 25 minutes of this 40 minute outpatient appointment, excluding 15 minutes performing the IUD insertion, were spent [id number] counseling Daphnie on the information above. Amy Schneider APRN 06/07/2019 documented in this encounter Plan of Treatment Not on file documented as of this encounter Procedures Procedure Name Priority Date/Time Associated Diagnosis Comments CYTOPATHOLOGY GYNECOLOGICAL Routine 06/07/2019 3:55 PM EST Encounter for screening for malignant neoplasm of cervix CT/NG PCR Routine 06/07/2019 3:00 PM EST HPV Routine 06/07/2019 3:00 PM EST PEST CONTROLLER ASSISTANT CYTOLOGY INTERPRETATION Routine 06/07/2019 3:00 PM EST PEST CONTROLLER ASSISTANT CYTOLOGY FINAL REPORT Routine 06/07/2019 3:00 PM EST documented in this encounter Results * Cytopathology Gynecological (06/07/2019 3:55 PM EST) AP Specimen 06/07/2019 3:55 PM EST 06/07/2019 3:55 PM EST Narrative [facility] - 06/07/2019 3:55 PM EST Specimen requisition ordered. ??Separate Pathology report to follow Amy Quinn APRN PATHOLOGY/CYTOLOG Y ORDERABLES Performing Organization Address City/State/[facility] Co de Phone Number [facility] [place] [address] * Medical Videographer Cytology Final Report (06/07/2019 3:00 PM EST) Medical Videographer Cytology Final Report [id number] ? Location: 5L The signing pathologist has (i) examined the relevant preparation(s) for the specimen(s) and (ii) rendered or confirmed the diagnosis(es). . ? Medical Videographer Final DIAGNOSIS Normal Negative for intraepithelial lesion or malignancy (NILM). For consensus guidelines for the management of cervical cancer screening test results, please see: ?? http://www.asccp.o rg . Electronically signed by: ??Abhi VALERA(ASCP) Alicia HurleyChirag Verified: ??06/20/2019 ?Geek Squad Agent Performed at: ??-[facility] [place]. [place], [place], [place] HPV RESULTS HPV16 (Result) ?Negative HPV18 [...] Clinical Genomics and Advanced Technology (CGAT) at [facility]. ? - Hosea Tapia, PhD, HCLD, Director-[facility] STATEMENT OF ADEQUACY Specimen submitted is satisfactory. Endocervical component present. CLINICAL INFORMATION HPV Option: ?Concurrent HPV and Pap CT/NG Option: ?Yes Preparation: ? Liquid based Pap Specimen Source: ? Cervical/Endocervi jose LMP: ? 17 May 2019 Hysterectomy: ?No : ?No : ?No I.U.D.: ?No Pelvic Radiation: ?No Hist Abnl Pap/Biopsy: ?No Prior PEST CONTROLLER ASSISTANT Therapy: ? No Hist of HPV Vaccine: ? No ICD Diagnosis: ? Z12.4 Encounter for screening for malignant neoplasm of cervix Clinical Data, Significant Therapy and Clinical Impression ?? : ?_ . CLINICAL INFORMATION This Pap Test has been evaluated with the assistance of the Zarpo Pap Test Imaging System. Note: The Pap test is a screening test for cervical cancer with an inherent false-negative rate dependent upon several variables. For further information please contact the [facility]. Reference: Epi DUGGAN. Air Support Control Officer of Pap Smear Results. In: Harmony BS, Agapito GOMEZ, ed. The Pap Smear. [facility] [place]: Zheng, 2002: 71-77. [facility] 06/07/2019 3:00 PM EST Amy Quinn APRN PATHOLOGY/CYTOLOG Y ORDERABLES Performing Organization Address [facility] de Phone Number [facility] [place] [address] * PEST CONTROLLER ASSISTANT Cytology Interpretation (06/07/2019 3:00 PM EST) Medical Videographer Cytology Interpretation NILM [facility] Comment:Medical Videographer Cytology Final R eport Endocervical Component Present [facility] AP Specimen 06/07/2019 3:00 PM EST 06/20/2019 12:42 PM EST Amymarcos Quinn ANALYSIS ENGINEER PATHOLOGY/CYTOLOG Y ORDERABLES Performing Organization Address [facility] Co de Phone Number [facility] [place] [address] * HPV (06/07/2019 3:00 PM EST) HPV16 NEGATIVE NEGATIVE [facility] HPV 18 NEGATIVE NEGATIVE [facility] HPV Other HR NEGATIVE NEGATIVE [facility] HPV Interpretation See Comment [facility] Comment: NEGATIVE for [...] Lab Amy Quinn APRN PATHOLOGY/CYTOLOG Y ORDERABLES [facility] [place] [address] * CT/NG PCR (06/07/2019 3:00 PM EST) Chlamydia Gene Amp Negative Negative [facility] Comment: This assay was performed in the [facility] Clinical [email or web address] [facility] [employer] [facility] using the bakari?? CT/NG v2.0 Test ([employer] The bakari?? CT/NG v2.0 Test is an in vitro diagnostic test for the qualitative detection of Chlamydia trachomatis (CT) and/or Neisseria gonorrhoeae (NG) DNA in urogenital specimens. The Test utilizes the Polymerase Chain Reaction (PCR) for the detection of Chlamydia trachomatis and Neisseria gonorrhoeae DNA in cervical specimens collected in PreservCyt?? solution. This test is intended as an aid in the diagnosis of chlamydial and gonococcal disease in both symptomatic and asymptomatic individuals. GC Gene Amp Negative Negative [facility] Comment: This assay was performed in the [facility] [email or web address] [facility] using the bakari?? CT/NG v2.0 Test ([employer] The bakari?? CT/NG v2.0 Test is an in vitro diagnostic test for the qualitative detection of Chlamydia trachomatis (CT) and/or Neisseria gonorrhoeae (NG) DNA in urogenital specimens. The Test utilizes the Polymerase Chain Reaction (PCR) for the detection of Chlamydia trachomatis and Neisseria gonorrhoeae DNA in cervical specimens collected in PreservCyt?? solution. This test is intended as an aid in the diagnosis of chlamydial and gonococcal disease in both symptomatic and asymptomatic individuals. Cervical swab (specimen) 06/07/2019 3:00 PM EST 06/09/2019 8:09 AM EST Narrative Resulting Agency Comment Spec In Lab Amy Quinn APRN MOLECULAR ORDERAB LES [facility] [place] [address] documented in this encounter Visit Diagnoses Diagnosis General counseling for initiation of other contraceptive measures Encounter for insertion of intrauterine contraceptive device Encounter for screening for malignant neoplasm of cervix Screening for malignant neoplasm of the cervix Encounter for screening for human papillomavirus (HPV) Special screening examination for human papillomavirus (HPV) Intrauterine device surveillance Surveillance of previously prescribed intrauterine contraceptive device documented in this encounter Administered Medications Inactive Administered Medications - up to 3 most recent administrations Medication Order MAR Action Action Date Dose Rate Site levonorgestrel (KYLEENA) 17.5 mcg/24 hr intra-uterine device 1 Intra Uterine Device (1 each), Intrauterine, ONCE, 1 dose, On Denice 06/07/19 at 1615, Routine Inserted 06/07/2019 4:35 PM EST 1 Intra Uterine Device documented in this encounter Care Teams Household Assistant Relationship Specialty Start Date End Date Alfa Harry MD [facility] GENERAL [place] [address] PCP - General General Internal Medicine 05/31/19 6/2 09/27 documented as of this encounter
--- OUTSIDE RECORDS SUMMARY | 2023-12-20 02:05 | XMS_ITS | Encounter Summary ---
Author Organization [facility] [place] [address] Care Team Providers Care Entertainment Musician Name Role Phone Alfa Harry MD Primary Care Provider [phone] Reason for Referral * Consultation (Routine) - Closed Specialty Diagnoses / Procedures Referred By Contdariusz t Referred To Contact Obstetrics and Gynecology Diagnoses Encounter for female control Alfa Harry MD [facility] GENERAL [place] [address] [facility] [employer] [address] [place] [address] Referral ID Status Reason Start Date Expiration Date V isits Requested Visits Authorized [id number] Closed Specialty Service Requested 06/05/2019 06/04/2020 1 1 Reason for Visit * Reason Comments Gynecologic Exam due to needing to go on control Contraception here to discuss and get a script Encounter Details Date Type Department Care Team (Late st Contact Info) Description 06/05/2019 3:00 PM EST Office Visit Internal Medicine at [address] [address] Alfa Harry MD [facility] GENERAL [place] [address] Healthcare maintenance; Encounter for female control Social History Tobacco Use Types Packs/Day [...] Sign Reading Time Taken Comments Blood Pressure 110/51 06/05/2019 2:50 PM EST Pulse 81 06/05/2019 2:50 PM EST Temperature - - Respiratory Rate - - Oxygen Saturation 99% 06/05/2019 2:50 PM EST Inhaled Oxygen Concentration - - Weight 86.1 kg (189 lb 12.8 oz) 06/05/2019 2:50 PM EST shoes on Height 154.9 cm (5' 0.98) 06/05/2019 2:50 PM ES T reported Body Mass Index 35.88 06/05/2019 2:50 PM EST documented in this encounter Progress Notes * PieroLuandevyn K - 06/05/2019 3:00 PM EST New Patient Visit Internal Medicine - [facility] Subjective: Daphnie Villatoro is a pleasant 34 y.o. female who presents for re-establishment of care. She last saw[place] Vald[place] in 08/[place]. At that time, she was seen for an acute visit; the main issues discussed were contraception and pharyngitis; she also had a CT scan to r/o appendicitis at the time. Since then, she has not been evaluated for medical care. Contraception Patient reports that she will be in a new relationship and would like to discuss contraception options. She previously was on Ortho Tri-cyclen but has not been sexually active for ~5 years, thus stopped taking it. She previously tolerated it well but did have some weight gain on it. As a result, would be interested in other options. She has heard about the IUD from friends/coworkers and is interes kendall in it. She would favor an option that would not result in weight gain and would be easy to remember. We discussed various options, including OCPs, hormonal IUDs, and non-hormonal IUD. LMP May 19, 2019 and has not been sexually active ~5 years. Previously was in a monogamous relationship prior to that. She is not currently and urine test was negative today in office. No hx DVT. Review of Systems: - reports heavy menstrual flow with improvement when she was on Ortho Tricyclen, no cramping; not currently sexually active; no abd pain Past Medical History: No past medical history on file. Medications Reviewed and Updated: Current Outpatient Medications on File Prior to Visit Medication Sig Dispense Refill ??? albuterol (PROVENTIL HFA;VENTOLIN HFA;PROAIR) 90 mcg/actuation HFA Aerosol Inhaler Inhale 2 puffs into the lungs every 4 hours as needed for Wheezing. Use with spacer 3 Inhaler 0 ??? ascorbic acid (VITAMIN C) 100 mg tablet Take 100 mg by mouth daily. ??? [DISCONTINUED] norgestimate-ethinyl estradiol (ORTHO TRI-CYCLEN LO) 0.18/0.215/0.25 mg-25 mcg Tablet Take 1 tablet by mouth daily. Dispense Brand (Patient not taking: Reported on 06/05/2019) 84 tablet 0 No current facility-administered medications on file prior to visit. Allergies: No Known Allergies Family History: No family history on file. 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 reports that she has never smoked. She has never used smokeless tobacco. Objective: BP 110/51 (BP Location (NBP): Left arm, Patient Position: Sitting, BP Cuff Sizes: Large Adult (32-43 cm)) Pulse 81 Ht 154.9 cm (5' 0.98) Comment: reported Wt 86.1 kg (189 lb 12.8 oz) Comment: shoes on LMP 05/19/2019 (Exact Date) SpO2 99% BMI 35.88 kg/m?? Physical Examination General - Overweight young female in NAD, appears comfortable Skin - Warm and dry, without lesions or rashes Eyes - Sclera white, conjunctivae clear. EOMI. Labs and Other Studies: POC Urine Test 06/05: negative Assessment & Plan: Daphnie Villatoro is a 34 y.o. female who returns to clinic today. We prioritized and discussed the following issues: #Contraception Discussed risks and benefits of various contraception options. Ultimately, she decided to pursue the Mirena or Angelic IUD with the option of removing it when she is ready for child-bearing. test was negative and she has no contraindications. In the meantime while she awaits the procedure, we will begin OrthoTricyclen again in case she becomes sexually active before the IUD is placed. Discussed that OCPs and IUD do not protect against STI and that further protection against STIs would be advised. - POCT urine test negative - Referral to OBGYN placed, appreciate guidance. Could get Pap smear at that time if possible, or will perform at next physical 08/2019 - OrthoTricyclen in the meantime prior to IUD placement, then will stop OrthoTricyclen. Discussed how to begin OCPs timing-odonnell with patient. #Healthcare maintenance Patient is scheduled to see me for a full annual/re-establishment of care visit in August 2019. Willneed to perform Pap smear at that time. - tetanus (Tdap) vaccine given today - influenza vaccine given today Alfa Harry MD Internal Medicine PGY-1 Pager #[phone] * Ritika Moe MD - 06/05/2019 3:00 PM EST The case was discussed at the time of the visit or immediately after the visit. The assessment and plan were formulated in discussion with me and I agree with them as documented. I have reviewed the history, physical exam, assessment and plan with the resident. Major issues discussed today: 34 year old woman with a history of obesity, here to discuss contraception and health maintenance. She has not been seen in clinic since 2014. She reports she has not been sexually active in the last 5 years, but plans to resume sexual activity in the near future. Interested in resuming contraception--considering OCP vs IUD. Denies any risk of or STI due torecent prolonged abstinence. Non-smoker, no migraines with aura, no family or personal history of blood clots. Vitals: 06/05/19 1450 BP: 110/51 BP Location (NB): Left arm Patient Position: Sitting BP Cuff Sizes: Large Adult (32-43 cm) Pulse: 81 SpO2: 99% Weight: 86.1 kg (189 lb 12.8 oz) Height: 154.9 cm (5' 0.98) Per aditya Schreiber, obese young woman in no acute distress Plan: 1. Contraception: POC urine test negative today. Provided a 2-month supply of OCP today while awaiting IUD placement--referral to FRONT OFFICE ADMINISTRATOR for IUD placement provided today. 2. Healthcare maintenance: Flu shot and tetanus booster today. Follow up in August with Dr Harry to establish care. documented in this encounter Plan of Treatment Scheduled Referrals Name Type Priority Associated Diagnoses Orde r Schedule Referral to Ob-Design Assembler Outpatient Referral Routine Encounter for female control Ordered: 06/05/2019 documented as of this encounter Procedures Procedure Name Priority Date/Time Associated Diagnosis Comments POCT URINE Routine 06/05/2019 4:05 PM EST Encounter for female control documented in this encounter Results * POCT urine (06/05/2019 4:05 PM EST) POC Urine HCG Negative Negative - Negative POC Control Internal Controls Acceptable 06/05/2019 4:05 PM EST Ritika Moe MD POINT OF CARE TEST O RDERABLES documented in this encounter Visit Diagnoses Diagnosis Healthcare maintenance Routine general medical examination at a health care facility Encounter for female control Other specified contraceptive management documented in this encounter Care Teams Entertainment Musician Relationship Specialty Start Date End Date Alfa Harry MD [facility] GENER[facility] [place] [address] PCP - General General Internal Medicine 05/31/19 6/2 09/27 documented as of this encounter
--- OUTSIDE RECORDS SUMMARY | 2023-12-20 02:05 | XMS_ITS | Encounter Summary ---
Author Organization [facility] [place] [address] Care Team Providers Care Blast Furnace Blower Name Role Phone Alfa Harry MD Primary Care Provider [phone] Reason for Visit * Reason Onset Date Comments Medication Refill 06/06/2019 Encounter Details Date Type Department Care Team (Late st Contact Info) Description 06/06/2019 Refill Internal Medicine at [address] [address] [facility] Encounter for female control Social History Tobacco [...] management documented in this encounter Care Teams Blast Furnace Blower Relationship Specialty Start Date End Date Alfa Harry MD [facility] GENERAL [place] [address] PCP - General General Internal Medicine 05/31/19 62 09/27 documented as of this encounter
--- OUTSIDE RECORDS SUMMARY | 2023-12-20 02:05 | XMS_ITS | Encounter Summary ---
Author Organization [facility] [place] [address] Care Team Providers Care Dispatcher Tugboat Name Role Phone Stacy Adams MD Primary Care Provider [phone] Encounter Details Date Type Department Care Team (Late st Contact Info) Description 07/11/2013 Telephone Internal Medicine at [address] [id number] Rosalie Pierce MD [facility] [place] [address] Social History Tobacco Use Types Packs/Day Years [...] encounter Miscellaneous Notes * Telephone Encounter - Rosalie Pierce MD - 07/16/2013 12:33 PM EDT Reviewed pt's recent lab work and biopsy results with pt by telephone. 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 I relayed to pt that I had spoken about her case and results with Dr. Niki Louis who confirmed that pt's presentation and work-up was consistent with a a purpuric dermatitis, and in the absence of medications, this was most likely idiopathic and that beyond symptom care, no intervention could be offered. This information was relayed to patient who expressed frustration that the cause ofher rash was not known and that there was no treatment we could offer. I offered her an appointmentwith dermatology but she was not interested and said she might go to a fisher clam a friend or family member knew. I offered her copies of the reports we had in our system and she said she would call if she needed them. documented in this encounter Plan of Treatment Not on file documented as of this encounter Visit Diagnoses Diagnosis Skin rash- Primary Rash and other nonspecific skin eruption documented in this encounter Care Teams Dispatcher Tugboat Relationship Specialty Start Date End Date Stacy Adams MD [facility] [address] [place] [address] PCP - General 03/31/10 11/01/16 documented as of this encounter
--- OUTSIDE RECORDS SUMMARY | 2023-12-20 02:05 | XMS_ITS | Encounter Summary ---
[facility] [place] [address] Care Team Providers Care Clock Repairer Name Role Phone Stacy Adams MD Primary Care Provider [phone] Reason for Visit * Reason Onset Date Comments Results 07/11/2013 Encounter Details Date Type Department Care Team (Late st Contact Info) Description 07/11/2013 Telephone Internal Medicine at [address] [address] Day Hernandez, RN Results Social History Tobacco Use Types Packs/Day [...] Telephone Encounter - Day Hernandez RN - 07/11/2013 11:53 AM EST TC from the patient: reviewed labs with the patient, pathology:---Comment--- There is superficial perivascular lymphocytic inflammation with exocytosis, and abundant extravasated red blood cells in the dermis. 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 A purpuric drug eruption could also be in the differential diagnosis. PAS fungal stain is negative. Patient has many questions and would like to speak to Dr. Pierce. Dr. Pierce has spoken directly with the candy starch mold printer and will call the patient today when time permits. documented in this encounter Plan of Treatment Not on file documented as of this encounter Visit Diagnoses Not on filedocumented in this encounter Care Teams Clock Repairer Relationship Specialty Start Date End Date Stacy Adams MD [facility] [address] [place] [address] PCP - General 03/31/10 11/01/16 documented as of this encounter
--- NOTE | 2023-12-20 06:15 | DI.MAMMO_ITS ---
Exam(s) MAMMO SCREENING EXAM: MAMMO SCREENING CLINICAL HISTORY: screening,z12.39,family h/o breast ca,z80.3 TECHNIQUE: Bilateral full field digital CC and MLO mammographic images were obtained with 3D tomosyn thesis and utilizing computer aided detection (CAD). COMPARISON: This is a baseline examination. FINDINGS: Masses/Architectural Distortion: None seen. Microcalcifications: No suspicious pleomorphic-type are seen. Skin Thickening/Nipple Retraction: None. IMPRESSION: 1. No evidence for malignancy is noted. 2. Unless there is more urgent need, screening mammography is recommended, as per [employer] guidelines. BI-RADS Category 1 - Negative Breast Density - Category A - Almost entirely fatty Breast density category C or D implies that the patient has dense breast tissue. Dense breast tissue is very common and is not abnormal but dense breast tissue can make it harder to find cancer on a ma mmogram. Also, dense breast tissue may increase their breast cancer risk. This information about the result of the mammogram report was provided to the patient to raise their awareness. Use this report when you speak with the patient about their risks for breast cancer, which includes their family hist ory. At that time, you may recommend for more screening tests (Ultrasound or MRI) as they might be us eful based on their risk. A negative radiographic report should not delay biopsy if a dominant or clinically suspicious mass is present. Up to ten percent of cancers are not identified on mammography. A negative report may reinforce clinical impression. Adenosis and dense breasts may obscure an underlying neoplasm. False positive reports average 6 to 10%. Patient will receive a letter notifying them of these results.
== END 2023-12-20 02:23 ==
LOC: DI 02:03
PROVIDERS: PCP Nurse Practitioner Family; Visit Provider Nurse Practitioner Family
DX: Z12.31 Encounter for screening mammogram for malignant neoplasm of breast (principal); Z80.3 Family history of malignant neoplasm of breast
CPT/HCPCS: 77063; 77067